=== PATIENT | male | born 1970 | race Caucasian/White ===

== ENCOUNTER 2017-03-29 18:09 | Emergency (ER) | payer OTHER ==
[~2017-03-29] VITALS: Ht 167.6 cm; Wt 152.0 kg
[~2017-03-29 18:09] MED LIST: ACET-1172 PO; ALBMDI INH; ARIP15TA2 PO; ASPI81TA2 PO; ATRMDI INH; CARV25TA55 PO; CITA20SO PO; FURO40TA5 PO; GABA-531 PO; INSU100V11 SQ; LISI-600 PO; MAGN250T31 PO; METF-716 PO; OMEG500C3 PO; OMEP20CA10 PO; POLY17PO2 PO; POTA20PA3 PO; SIMV20TA2 PO; SPIR50TA26 PO; SSNOVOLOG SUBCUT; WITC1MED4 TP
[2017-03-29 18:19] VITALS: BP_SYST 160
[2017-03-29 19:37] LABS: BASOPHILS % (AUTO) 0.3 % (0.0-2.0); EOSINOPHILS # (AUTO) 0.3 K/uL (0.0-0.4); EOSINOPHILS % (AUTO) 2.8 % (0.0-4.0); HEMATOCRIT 36.6 % (36-54); HEMOGLOBIN 12.4 g/dL (14.0-18.0); MEAN CORPUSCULAR HEMOGLOBIN 27 pg (27-31); MEAN CORPUSCULAR HGB CONC 34 % (32-36); MEAN CORPUSCULAR VOLUME 79 fL (79.0-98.0); MONOCYTES # (AUTO) 0.3 K/uL (0.0-1.0); MONOCYTES % (AUTO) 3.5 % (1.7-9.3); NEUTROPHILS % (AUTO) 72.4 % (40.0-70.0); PLATELET COUNT (AUTO) 184 K/uL (130-430); RED BLOOD CELL COUNT(AUTO) 4.66 MIL/uL (4.2-6.2); RED CELL DISTRIBUTION WIDTH 13.5 % (9.0-15.0); WHITE BLOOD COUNT (AUTO) 9.6 K/uL (4.8-10.8)
[2017-03-29 19:43] LABS: ANION GAP 7 (5-15); CALCIUM 9.2 mg/dL (8.4-11.0); CHLORIDE 96 mmol/L (98-107); CREATININE 1.36 mg/dL (0.55-1.30); GLUCOSE 210 mg/dL (70-99); POTASSIUM 4.1 mmol/L (3.5-5.1); SODIUM SERUM 130 mmol/L (136-145); UREA NITROGEN, BLOOD 25 mg/dL (8-21)
[2017-03-29 19:46] LABS: GFR AFRICAN AMERICAN 72 mL/min (>90); PROTHROMBIN TIME 10.4 SECS (9.5-12.5)
[2017-03-29 20:07] LABS: ALANINE AMINOTRANSFERASE 32 U/L (12-78); ALBUMIN 3.5 g/dL (3.4-4.8); ASPARTATE AMINOTRANSFERASE 20 U/L (10-37); FREE T4 (FREE THYROXINE) 0.7 ng/dL (0.6-1.6); TOTAL BILIRUBIN 0.3 mg/dL (0.0-1.0); TOTAL PROTEIN, SERUM 7.9 g/dL (6.4-8.3)
[2017-03-29 20:08] LABS: ALCOHOL, BLOOD < 3 mg/dL (<10)
[2017-03-29] MEDS ORDERED: ACETAMINOPHEN 500 MG TABLET PO ONE (20:30)
[2017-03-29] MEDS ORDERED: HYDROmorphone 1 MG INJ. 1 MG/ML AMPUL IVP ONE (21:15)
[2017-03-29] MEDS ORDERED: MORPHINE 4 MG/ML INJ. SYRINGE IVP ONE (21:15)
[2017-03-29 21:27] LABS: BILIRUBIN,URINE NEGATIVE (NEGATIVE); BLOOD, URINE 1+ (NEGATIVE); CLARITY/URINE CLEAR (CLEAR); COLOR,URINE YELLOW (YELLOW); GLUCOSE,URINE NEGATIVE (NEGATIVE); KETONES,URINE NEGATIVE (NEGATIVE); LEUKOCYTE ESTERASE ,URINE NEGATIVE (NEGATIVE); NITRITE, URINE NEGATIVE (NEGATIVE); PH,URINE 5.5 (5.0-8.0); PROTEIN URINE 1+ (NEGATIVE); UROBILINOGEN,URINE 0.2 (0.2-1.0)
[2017-03-29 21:45] LABS: BARBITURATE, URINE NEGATIVE (NEG <=200); OPIATE, URINE POSITIVE (NEG <=100); URINE AMPHETAMINE NEGATIVE (NEG <=500)
[2017-03-29 21:46] LABS: BENZODIAZEPINE, URINE NEGATIVE (NEG <=150); CANNABINOID, URINE NEGATIVE (NEG <=50); COCAINE, URINE NEGATIVE (NEG <=150); METHAMPHETAMINES SCREEN,URINE NEGATIVE (NEG <=500); PHENCYCLIDINE SCREEN,URINE NEGATIVE (NEG <=25); UR TRICYCLIC ANTIDEPRESSANTS NEGATIVE (NEG <=300); URINE METHADONE NEGATIVE (NEG <=200); URINE OXYCODONE SCREEN NEGATIVE (NEG <=100); URINE PROPOXYPHENE SCREEN NEGATIVE (NEG <=300)
[2017-03-29 22:05] VITALS: BP_SYST 134
[2017-03-29 22:48] LABS: BACTERIA,URINE FEW /HPF (None Seen); RBC,URINE 0-3 /HPF (0-3); WBC,URINE 0-3 /HPF (0-3)
== END 2017-03-29 22:05 | disposition home or self-care (01) ==
LOC: SED 18:09
DX: R51 Headache (principal); R07.89 Other chest pain; E66.2 Morbid (severe) obesity with alveolar hypoventilation; I50.9 Heart failure, unspecified; I11.0 Hypertensive heart disease with heart failure; J45.909 Unspecified asthma, uncomplicated; E11.9 Type 2 diabetes mellitus without complications; Z95.0 Presence of cardiac pacemaker; Z88.6 Allergy status to analgesic agent; Z79.899 Other long term (current) drug therapy
CPT/HCPCS: 36415; 70450; 71010; 80053; 80307; 81000; 82140; 83605; 83880; 84439; 84484; 85025; 85610; 87040; 93005; 96374; 99285; G0482; J2270; J1170

== ENCOUNTER 2019-10-23 19:56 | Emergency (ER) | payer BC, OTHER ==
[~2019-10-23] VITALS: Ht 167.6 cm; Wt 154.2 kg
[~2019-10-23 19:56] MED LIST changes: +ASPI-1155 PO; -ASPI81TA2 PO; -CITA20SO PO; +CITA20SO2 PO; +MAGN250T10 PO; -MAGN250T31 PO; -METF-716 PO; +METF-833 PO; -OMEP20CA10 PO; +OMEP20CA11 PO; +POLY17PO PO; -POLY17PO2 PO; -SPIR50TA26 PO; +SPIR50TA5 PO
[2019-10-23 20:20] VITALS: BP_SYST 140
--- NOTE | 2019-10-23 20:20 | NUR ---
Pt BIB BLS from home, placed to ER hallway, EMS at side, awaiting bed placement.
--- NOTE | 2019-10-23 20:48 | NUR ---
Dr. Barragan assessing pt.
--- NOTE | 2019-10-23 21:00 | NUR ---
Pt placed to ER bed 06. Dr. Barragan at bedside.
--- NOTE | 2019-10-23 21:05 | NUR ---
HERE WITH A CHIEF COMPLAINT OF LEFT HIP,THIGH,ABDOMEN AND LOWER BACK PAIN. ER-MD AT BEDSIDE TO EVALUATE PT.
[2019-10-23] MEDS ORDERED: NACL 0.9% 1,000 ML IV ONE (21:12)
[2019-10-23] MEDS ORDERED: MORPHINE 4 MG/ML INJ. SYRINGE IVP ONE (21:15)
[2019-10-23] MEDS ORDERED: DIPHENHYDRAMINE INJ 50 MG/ML VIAL IVP ONE (21:15)
--- NOTE | 2019-10-23 21:40 | NUR ---
Pt to CT via stretcher in stable condition.
--- NOTE | 2019-10-23 21:51 | NUR ---
Pt returns from CT.
--- NOTE | 2019-10-23 22:05 | NUR ---
GAUGE 20 IV LINE ESTABLISHED TO THE LEFT AC. BLOOD DRAWN AND SENT TO THE LAB. NS 1 LITER @ 100 ML/HR,MORPHINE 4 MG IVP AND BENADRYL 25 MG IVP GIVEN ORDERED.
[2019-10-23 22:27] LABS: BASOPHILS % (AUTO) 0.2 % (0.0-2.0); EOSINOPHILS # (AUTO) 0.3 K/uL (0.0-0.4); EOSINOPHILS % (AUTO) 2.2 % (0.0-4.0); HEMATOCRIT 32.7 % (36-54); LYMPHOCYTES # (AUTO) 1.6 K/uL (1.0-5.5); LYMPHOCYTES % (AUTO) 14.1 % (20.5-51.5); MEAN CORPUSCULAR HEMOGLOBIN 27 pg (27-31); MEAN CORPUSCULAR HGB CONC 34 % (32-36); MEAN CORPUSCULAR VOLUME 80 fL (79.0-98.0); MONOCYTES # (AUTO) 0.7 K/uL (0.0-1.0); MONOCYTES % (AUTO) 6.2 % (1.7-9.3); NEUTROPHILS # (AUTO) 8.7 K/uL (1.8-7.7); NEUTROPHILS % (AUTO) 77.3 % (40.0-70.0); PLATELET COUNT (AUTO) 185 K/uL (130-430); RED CELL DISTRIBUTION WIDTH 15.5 % (9.0-15.0); WHITE BLOOD COUNT (AUTO) 11.2 K/uL (4.8-10.8)
[2019-10-23 22:35] LABS: CALCIUM 9.3 mg/dL (8.4-11.0); CREATININE 1.38 mg/dL (0.55-1.30); POTASSIUM 4.2 mmol/L (3.5-5.1)
--- NOTE | 2019-10-23 22:35 | NUR ---
PT.RESTING QUIETLY. VERBALIZED SIGNIFICANT IMPROVEMENT OF PAIN (4/10).
[2019-10-23 22:39] LABS: PROTHROMBIN TIME 10.5 SECS (9.5-12.5)
[2019-10-23 22:41] LABS: ALBUMIN 3.7 g/dL (3.4-4.8); TOTAL BILIRUBIN 0.6 mg/dL (0.0-1.0)
--- NOTE | 2019-10-23 23:14 | NUR ---
ER-MD BACK AT BEDSIDE TO RE-EVALUATE AND DISCUSS PLAN OF CARE WITH PT.
[2019-10-23] MEDS ORDERED: KETOROLAC TROMETHAMINE 30 MG VIAL IVP ONE (23:30)
--- NOTE | 2019-10-23 23:38 | NUR ---
PAIN BETTER (4/10). TORADOL 30 MG IVP GIVEN ORDERED. VS REMAIN STABLE.
--- NOTE | 2019-10-24 00:25 | NUR ---
DISCHARGED STABLE AND IMPROVED. PRESCRIPTION,VERBAL AND WRITTEN AFTERCARE INSTRUCTIONS GIVEN. VERBALIZED UNDERSTANDING.
[2019-10-24 00:44] VITALS: BP_SYST 126
== END 2019-10-24 00:44 | disposition home or self-care (01) ==
LOC: SED 19:56
DX: M25.552 Pain in left hip (principal); M54.5 Low back pain; J45.909 Unspecified asthma, uncomplicated; I11.0 Hypertensive heart disease with heart failure; I50.9 Heart failure, unspecified; E11.9 Type 2 diabetes mellitus without complications; Z95.0 Presence of cardiac pacemaker; Z88.5 Allergy status to narcotic agent; Z79.899 Other long term (current) drug therapy
CPT/HCPCS: 36415; 72192; 80053; 85025; 85610; 85730; 96374; 96375; 99284; J1200; J1885; J2270; J7030

== ENCOUNTER 2019-10-26 09:37 | Inpatient (IN) | payer BC, OTHER ==
[~2019-10-26] VITALS: Ht 167.6 cm; Wt 155.6 kg
[2019-10-26 09:37] VITALS: BP_SYST 160
[2019-10-26] MEDS ORDERED: ONDANSETRON HCL 4 MG/2 ML VIAL IVP ONE (10:00)
[2019-10-26] MEDS ORDERED: MORPHINE 4 MG/ML INJ. SYRINGE IVP ONE ×2 (10:00→13:30)
[2019-10-26 10:54] LABS: BASOPHILS # (AUTO) 0.1 K/uL (0.0-0.2); BASOPHILS % (AUTO) 0.5 % (0.0-2.0); HEMATOCRIT 33.3 % (36-54); LYMPHOCYTES # (AUTO) 0.8 K/uL (1.0-5.5); LYMPHOCYTES % (AUTO) 6.7 % (20.5-51.5); MEAN CORPUSCULAR HEMOGLOBIN 26 pg (27-31); MEAN CORPUSCULAR HGB CONC 33 % (32-36); MEAN CORPUSCULAR VOLUME 81 fL (79.0-98.0); MONOCYTES # (AUTO) 1.1 K/uL (0.0-1.0); MONOCYTES % (AUTO) 9.2 % (1.7-9.3); NEUTROPHILS # (AUTO) 9.9 K/uL (1.8-7.7); NEUTROPHILS % (AUTO) 83.6 % (40.0-70.0); PLATELET COUNT (AUTO) 159 K/uL (130-430); RED BLOOD CELL COUNT(AUTO) 4.14 MIL/uL (4.2-6.2); RED CELL DISTRIBUTION WIDTH 15.5 % (9.0-15.0); WHITE BLOOD COUNT (AUTO) 11.9 K/uL (4.8-10.8)
[2019-10-26 10:59] LABS: CALCIUM 9.2 mg/dL (8.4-11.0); CREATININE 1.62 mg/dL (0.55-1.30); POTASSIUM 3.6 mmol/L (3.5-5.1)
[2019-10-26 11:03] LABS: ALBUMIN 3.4 g/dL (3.4-4.8); TOTAL BILIRUBIN 1.1 mg/dL (0.0-1.0)
[2019-10-26] MEDS ORDERED: KETOROLAC TROMETHAMINE 30 MG VIAL IVP ONE (11:15)
[2019-10-26] MEDS ORDERED: cefTRIAXone 1 GM IVPB PREMIX 50 ML IV ONE ×2 (14:00→22:35)
[2019-10-26] MEDS ORDERED: KETOROLAC TROMETHAMINE 15 MG VIAL IVP PRN (14:00)
[2019-10-26] MEDS ORDERED: D5/0.45 NS 1,000 ML IV SCH (14:00)
[2019-10-26 15:25] VITALS: BP_SYST 115
[2019-10-26] MEDS ORDERED: INSULIN REGULAR, HUMAN 100 UNITS/ML, 10 ML VIAL (humuLIN R) SUBCUT PRN (18:45)
[2019-10-26 19:00] VITALS: BP_SYST 134
[2019-10-26] MEDS ORDERED: PHENYLEPH/MINERAL OIL/PETROLAT 45 GM OINT.APPL TP SCH (19:30)
[2019-10-26] MEDS ORDERED: ACETAMINOPHEN/CODEINE 300 MG-30 MG TABLET PO SCH (19:30)
[2019-10-26 20:00] VITALS: BP_SYST 134
[2019-10-26] MEDS: SPIRONOLACTONE 50 MG TABLET (ALDACTONE) PO SCH (21:06)
[2019-10-26] MEDS: CARVEDILOL 25 MG TABLET (COREG) PO SCH (21:07)
[2019-10-26] MEDS: FUROSEMIDE 40 MG TABLET PO SCH (21:07)
[2019-10-26] MEDS: GABAPENTIN 300 MG CAPSULE PO SCH (21:07)
[2019-10-26] MEDS: LISINOPRIL 20 MG TABLET PO SCH (21:08)
[2019-10-26] MEDS: SIMVASTATIN 20 MG TABLET PO SCH (21:08)
[2019-10-26] MEDS: D5/0.45 NS 1,000 ML IV SCH (21:09)
[2019-10-26] MEDS: INSULIN REGULAR, HUMAN 100 UNITS/ML, 10 ML VIAL (humuLIN R) SUBCUT PRN (21:13)
[2019-10-26] MEDS: KETOROLAC TROMETHAMINE 15 MG VIAL IVP PRN (23:00)
[2019-10-27] VITALS: BP_SYST 125
[2019-10-27] MEDS: MORPHINE 2 MG/ML INJ. SYRINGE IVP PRN ×4 (00:11→19:06)
[2019-10-27] MEDS: INSULIN REGULAR, HUMAN 100 UNITS/ML, 10 ML VIAL (humuLIN R) SUBCUT PRN ×2 (06:27→20:41)
[2019-10-27 07:02] LABS: BASOPHILS % (AUTO) 0.2 % (0.0-2.0); HEMATOCRIT 28.6 % (36-54); HEMOGLOBIN 9.7 g/dL (14.0-18.0); LYMPHOCYTES # (AUTO) 0.4 K/uL (1.0-5.5); LYMPHOCYTES % (AUTO) 4.7 % (20.5-51.5); MEAN CORPUSCULAR HEMOGLOBIN 27 pg (27-31); MEAN CORPUSCULAR HGB CONC 34 % (32-36); MEAN CORPUSCULAR VOLUME 80 fL (79.0-98.0); MONOCYTES # (AUTO) 0.8 K/uL (0.0-1.0); MONOCYTES % (AUTO) 8.7 % (1.7-9.3); NEUTROPHILS % (AUTO) 86.4 % (40.0-70.0); PLATELET COUNT (AUTO) 150 K/uL (130-430); RED BLOOD CELL COUNT(AUTO) 3.58 MIL/uL (4.2-6.2); RED CELL DISTRIBUTION WIDTH 15.3 % (9.0-15.0); WHITE BLOOD COUNT (AUTO) 9.2 K/uL (4.8-10.8)
[2019-10-27 07:22] LABS: CALCIUM 8.4 mg/dL (8.4-11.0); CREATININE 1.96 mg/dL (0.55-1.30); POTASSIUM 4.1 mmol/L (3.5-5.1)
[2019-10-27 08:00] VITALS: BP_SYST 141
[2019-10-27 08:20] VITALS: BP_SYST 125
[2019-10-27] MEDS: MAGNESIUM OXIDE 400 MG TABLET PO SCH (08:47)
[2019-10-27] MEDS: ARIPiprazole 5 MG TAB PO SCH (08:49)
[2019-10-27] MEDS: GABAPENTIN 300 MG CAPSULE PO SCH ×3 (08:50→20:34)
[2019-10-27] MEDS: ASPIRIN 81 MG TAB.CHEW PO SCH (08:50)
[2019-10-27] MEDS: CARVEDILOL 25 MG TABLET (COREG) PO SCH ×2 (08:51→20:50)
[2019-10-27] MEDS: FUROSEMIDE 40 MG TABLET PO SCH (08:52)
[2019-10-27] MEDS: CITALOPRAM HYDROBROMIDE 20 MG TABLET PO SCH (08:53)
[2019-10-27] MEDS: LISINOPRIL 20 MG TABLET PO SCH (08:54)
[2019-10-27] MEDS: ENOXAPARIN SODIUM 40 MG/0.4 ML SYRINGE SUBCUT SCH (08:56)
[2019-10-27 09:03] LABS: BILIRUBIN,URINE NEGATIVE (NEGATIVE); CLARITY/URINE CLEAR (CLEAR); COLOR,URINE YELLOW (YELLOW); GLUCOSE,URINE NEGATIVE (NEGATIVE); KETONES,URINE NEGATIVE (NEGATIVE); LEUKOCYTE ESTERASE ,URINE NEGATIVE (NEGATIVE); NITRITE, URINE NEGATIVE (NEGATIVE); PROTEIN URINE 2+ (NEGATIVE)
[2019-10-27 09:09] LABS: BLOOD, URINE TRACE (NEGATIVE)
[2019-10-27] MEDS: OMEGA-3/DHA/EPA/FISH OIL 1 GM CAPSULE PO SCH (09:13)
[2019-10-27] MEDS: SPIRONOLACTONE 50 MG TABLET (ALDACTONE) PO SCH (09:19)
[2019-10-27 09:27] LABS: BACTERIA,URINE RARE /HPF (None Seen); RBC,URINE 0-3 /HPF (0-3); WBC,URINE 0-3 /HPF (0-3)
[2019-10-27 09:28] LABS: MUCUS,URINE 1+ /LPF (None Seen)
[2019-10-27 12:00] VITALS: BP_SYST 128
[2019-10-27] MEDS: D5/0.45 NS 1,000 ML IV SCH (15:38)
[2019-10-27] MEDS: ACETAMINOPHEN/CODEINE 300 MG-30 MG TABLET PO PRN ×2 (17:30→19:08)
[2019-10-27 18:45] VITALS: BP_SYST 128
[2019-10-27 20:00] VITALS: BP_SYST 124
[2019-10-27] MEDS: SIMVASTATIN 20 MG TABLET PO SCH (20:34)
[2019-10-27] MEDS ORDERED: VANCOMYCIN HCL 1 GM/NS PREMIX 250 ML IV SCH (21:00)
[2019-10-27] MEDS ORDERED: VANCOMYCIN HCL 500 MG/VIAL IV ONE ×2 (21:33→23:26)
[2019-10-27] MEDS: KETOROLAC TROMETHAMINE 15 MG VIAL IVP PRN (22:55)
[2019-10-28 00:25] VITALS: BP_SYST 127
[2019-10-28] MEDS: MORPHINE 2 MG/ML INJ. SYRINGE IVP PRN ×3 (04:42→20:46)
[2019-10-28] MEDS: INSULIN REGULAR, HUMAN 100 UNITS/ML, 10 ML VIAL (humuLIN R) SUBCUT PRN ×4 (06:14→21:20)
[2019-10-28 07:06] LABS: BASOPHILS % (AUTO) 0.3 % (0.0-2.0); EOSINOPHILS % (AUTO) 0.3 % (0.0-4.0); HEMATOCRIT 27.3 % (36-54); HEMOGLOBIN 9.3 g/dL (14.0-18.0); LYMPHOCYTES # (AUTO) 0.5 K/uL (1.0-5.5); LYMPHOCYTES % (AUTO) 6.1 % (20.5-51.5); MEAN CORPUSCULAR HEMOGLOBIN 27 pg (27-31); MEAN CORPUSCULAR HGB CONC 34 % (32-36); MEAN CORPUSCULAR VOLUME 80 fL (79.0-98.0); MONOCYTES # (AUTO) 0.9 K/uL (0.0-1.0); MONOCYTES % (AUTO) 9.9 % (1.7-9.3); NEUTROPHILS # (AUTO) 7.3 K/uL (1.8-7.7); NEUTROPHILS % (AUTO) 83.4 % (40.0-70.0); PLATELET COUNT (AUTO) 145 K/uL (130-430); RED BLOOD CELL COUNT(AUTO) 3.42 MIL/uL (4.2-6.2); RED CELL DISTRIBUTION WIDTH 15.4 % (9.0-15.0); WHITE BLOOD COUNT (AUTO) 8.7 K/uL (4.8-10.8)
[2019-10-28 07:39] LABS: ALBUMIN 2.7 g/dL (3.4-4.8); CREATININE 2.32 mg/dL (0.55-1.30); POTASSIUM 4.1 mmol/L (3.5-5.1); TOTAL BILIRUBIN 1.5 mg/dL (0.0-1.0)
[2019-10-28 08:00] VITALS: BP_SYST 152
[2019-10-28] MEDS: OMEGA-3/DHA/EPA/FISH OIL 1 GM CAPSULE PO SCH (08:55)
[2019-10-28] MEDS: ASPIRIN 81 MG TAB.CHEW PO SCH (08:55)
[2019-10-28] MEDS: GABAPENTIN 300 MG CAPSULE PO SCH ×3 (08:55→21:12)
[2019-10-28] MEDS: CITALOPRAM HYDROBROMIDE 20 MG TABLET PO SCH (08:55)
[2019-10-28] MEDS: MAGNESIUM OXIDE 400 MG TABLET PO SCH (08:55)
[2019-10-28] MEDS: ARIPiprazole 5 MG TAB PO SCH (08:55)
[2019-10-28] MEDS: CARVEDILOL 25 MG TABLET (COREG) PO SCH ×2 (08:56→21:10)
[2019-10-28] MEDS: ENOXAPARIN SODIUM 40 MG/0.4 ML SYRINGE SUBCUT SCH (08:58)
[2019-10-28] MEDS: D5/0.45 NS 1,000 ML IV SCH ×2 (11:14→22:06)
[2019-10-28] MEDS: ACETAMINOPHEN/CODEINE 300 MG-30 MG TABLET PO PRN (11:38)
[2019-10-28 12:22] VITALS: BP_SYST 143
[2019-10-28 16:23] VITALS: BP_SYST 99
[2019-10-28] MEDS: CEFEPIME 1 GM in D5W 50 ML IV SCH (16:57)
[2019-10-28] MEDS ORDERED: VANCOMYCIN HCL 2,000 MG in NS 500 ML IV SCH (18:00)
[2019-10-28 19:00] VITALS: BP_SYST 110
[2019-10-28 20:00] VITALS: BP_SYST 110
[2019-10-28] MEDS: SPIRONOLACTONE 50 MG TABLET (ALDACTONE) PO SCH (21:09)
[2019-10-28] MEDS: FUROSEMIDE 40 MG TABLET PO SCH (21:10)
[2019-10-28] MEDS: SIMVASTATIN 20 MG TABLET PO SCH (21:10)
[2019-10-29 00:18] VITALS: BP_SYST 126
[2019-10-29] MEDS: MORPHINE 2 MG/ML INJ. SYRINGE IVP PRN ×4 (00:52→20:58)
[2019-10-29] MEDS: D5/0.45 NS 1,000 ML IV SCH ×2 (04:55→16:15)
[2019-10-29] MEDS: INSULIN REGULAR, HUMAN 100 UNITS/ML, 10 ML VIAL (humuLIN R) SUBCUT PRN ×4 (05:49→20:51)
[2019-10-29 06:58] LABS: BASOPHILS % (AUTO) 0.4 % (0.0-2.0); EOSINOPHILS # (AUTO) 0.1 K/uL (0.0-0.4); EOSINOPHILS % (AUTO) 1.1 % (0.0-4.0); HEMATOCRIT 24.8 % (36-54); HEMOGLOBIN 8.4 g/dL (14.0-18.0); LYMPHOCYTES # (AUTO) 0.8 K/uL (1.0-5.5); LYMPHOCYTES % (AUTO) 11.7 % (20.5-51.5); MEAN CORPUSCULAR HEMOGLOBIN 27 pg (27-31); MEAN CORPUSCULAR HGB CONC 34 % (32-36); MEAN CORPUSCULAR VOLUME 79 fL (79.0-98.0); MONOCYTES # (AUTO) 0.8 K/uL (0.0-1.0); MONOCYTES % (AUTO) 13.2 % (1.7-9.3); NEUTROPHILS # (AUTO) 4.7 K/uL (1.8-7.7); NEUTROPHILS % (AUTO) 73.6 % (40.0-70.0); PLATELET COUNT (AUTO) 119 K/uL (130-430); RED BLOOD CELL COUNT(AUTO) 3.12 MIL/uL (4.2-6.2); RED CELL DISTRIBUTION WIDTH 15.5 % (9.0-15.0); WHITE BLOOD COUNT (AUTO) 6.4 K/uL (4.8-10.8)
[2019-10-29 07:10] LABS: ALBUMIN 2.5 g/dL (3.4-4.8); CALCIUM 7.9 mg/dL (8.4-11.0); CREATININE 1.82 mg/dL (0.55-1.30); POTASSIUM 4.3 mmol/L (3.5-5.1); TOTAL BILIRUBIN 1.5 mg/dL (0.0-1.0)
[2019-10-29] MEDS: SPIRONOLACTONE 50 MG TABLET (ALDACTONE) PO SCH ×2 (08:35→20:41)
[2019-10-29] MEDS: GABAPENTIN 300 MG CAPSULE PO SCH ×3 (08:35→20:42)
[2019-10-29] MEDS: ENOXAPARIN SODIUM 40 MG/0.4 ML SYRINGE SUBCUT SCH (08:36)
[2019-10-29] MEDS: FUROSEMIDE 40 MG TABLET PO SCH ×2 (08:36→20:42)
[2019-10-29] MEDS: CARVEDILOL 25 MG TABLET (COREG) PO SCH ×2 (08:36→20:41)
[2019-10-29] MEDS: CITALOPRAM HYDROBROMIDE 20 MG TABLET PO SCH (08:36)
[2019-10-29] MEDS: ARIPiprazole 5 MG TAB PO SCH (08:37)
[2019-10-29] MEDS: MAGNESIUM OXIDE 400 MG TABLET PO SCH (08:37)
[2019-10-29] MEDS: OMEGA-3/DHA/EPA/FISH OIL 1 GM CAPSULE PO SCH (08:37)
[2019-10-29] MEDS: ASPIRIN 81 MG TAB.CHEW PO SCH (08:37)
[2019-10-29] MEDS: KETOROLAC TROMETHAMINE 15 MG VIAL IVP PRN (08:45)
[2019-10-29 10:48] VITALS: BP_SYST 145
[2019-10-29 12:00] VITALS: BP_SYST 123
[2019-10-29] MEDS: VANCOMYCIN HCL 1,750 MG in NS 500 ML IV SCH (16:15)
[2019-10-29 16:34] VITALS: BP_SYST 140
[2019-10-29] MEDS ORDERED: BALSAM PERU/CASTOR OIL 60 GM OINT...G. TP ONE (18:00)
[2019-10-29] MEDS: CEFEPIME 1 GM in D5W 50 ML IV SCH (18:39)
[2019-10-29 19:00] VITALS: BP_SYST 162
[2019-10-29 20:00] VITALS: BP_SYST 162
[2019-10-29] MEDS: SIMVASTATIN 20 MG TABLET PO SCH (20:42)
[2019-10-30 00:20] VITALS: BP_SYST 133
[2019-10-30] MEDS: MORPHINE 2 MG/ML INJ. SYRINGE IVP PRN (01:25)
[2019-10-30] MEDS: VANCOMYCIN HCL 1,750 MG in NS 500 ML IV SCH (02:35)
[2019-10-30] MEDS: D5/0.45 NS 1,000 ML IV SCH (04:06)
[2019-10-30] MEDS: KETOROLAC TROMETHAMINE 15 MG VIAL IVP PRN ×3 (04:42→16:05)
[2019-10-30] MEDS: INSULIN REGULAR, HUMAN 100 UNITS/ML, 10 ML VIAL (humuLIN R) SUBCUT PRN ×4 (06:03→21:41)
[2019-10-30 07:57] LABS: CALCIUM 8.1 mg/dL (8.4-11.0); CREATININE 1.62 mg/dL (0.55-1.30); POTASSIUM 3.8 mmol/L (3.5-5.1)
[2019-10-30 08:00] VITALS: BP_SYST 139
[2019-10-30] MEDS: BALSAM PERU/CASTOR OIL 60 GM OINT...G. TP SCH ×2 (09:00→15:59)
[2019-10-30] MEDS: FUROSEMIDE 40 MG TABLET PO SCH ×2 (09:28→21:33)
[2019-10-30] MEDS: ARIPiprazole 5 MG TAB PO SCH (09:28)
[2019-10-30] MEDS: CITALOPRAM HYDROBROMIDE 20 MG TABLET PO SCH (09:28)
[2019-10-30] MEDS: MAGNESIUM OXIDE 400 MG TABLET PO SCH (09:29)
[2019-10-30] MEDS: SPIRONOLACTONE 50 MG TABLET (ALDACTONE) PO SCH ×2 (09:29→21:33)
[2019-10-30] MEDS: GABAPENTIN 300 MG CAPSULE PO SCH ×3 (09:29→21:32)
[2019-10-30] MEDS: ASPIRIN 81 MG TAB.CHEW PO SCH (09:30)
[2019-10-30] MEDS: CARVEDILOL 25 MG TABLET (COREG) PO SCH ×2 (09:30→21:33)
[2019-10-30] MEDS: OMEGA-3/DHA/EPA/FISH OIL 1 GM CAPSULE PO SCH (09:30)
[2019-10-30] MEDS: LISINOPRIL 20 MG TABLET PO SCH (09:31)
[2019-10-30] MEDS: ENOXAPARIN SODIUM 40 MG/0.4 ML SYRINGE SUBCUT SCH (09:41)
[2019-10-30] MEDS: ACETAMINOPHEN/CODEINE 300 MG-30 MG TABLET PO PRN (10:14)
[2019-10-30 13:12] VITALS: BP_SYST 139
[2019-10-30 16:00] VITALS: BP_SYST 138
[2019-10-30 20:00] VITALS: BP_SYST 139
[2019-10-30] MEDS: ceFAZolin SODIUM 1 GM in D5W 50 ML IV SCH ×2 (21:00→21:34)
[2019-10-30] MEDS: SIMVASTATIN 20 MG TABLET PO SCH (21:33)
[2019-10-31 00:30] VITALS: BP_SYST 150
[2019-10-31] MEDS: INSULIN REGULAR, HUMAN 100 UNITS/ML, 10 ML VIAL (humuLIN R) SUBCUT PRN ×4 (06:13→21:06)
[2019-10-31] MEDS: KETOROLAC TROMETHAMINE 15 MG VIAL IVP PRN (06:14)
[2019-10-31 08:33] VITALS: BP_SYST 159
[2019-10-31] MEDS: BALSAM PERU/CASTOR OIL 60 GM OINT...G. TP SCH ×2 (09:00)
[2019-10-31] MEDS: SPIRONOLACTONE 50 MG TABLET (ALDACTONE) PO SCH ×2 (10:12→20:56)
[2019-10-31] MEDS: OMEGA-3/DHA/EPA/FISH OIL 1 GM CAPSULE PO SCH (10:12)
[2019-10-31] MEDS: ceFAZolin SODIUM 1 GM in D5W 50 ML IV SCH ×2 (10:12→20:52)
[2019-10-31] MEDS: MAGNESIUM OXIDE 400 MG TABLET PO SCH (10:13)
[2019-10-31] MEDS: ARIPiprazole 5 MG TAB PO SCH (10:13)
[2019-10-31] MEDS: LISINOPRIL 20 MG TABLET PO SCH (10:14)
[2019-10-31] MEDS: CITALOPRAM HYDROBROMIDE 20 MG TABLET PO SCH (10:14)
[2019-10-31] MEDS: CARVEDILOL 25 MG TABLET (COREG) PO SCH ×2 (10:15→20:56)
[2019-10-31] MEDS: ASPIRIN 81 MG TAB.CHEW PO SCH (10:16)
[2019-10-31] MEDS: FUROSEMIDE 40 MG TABLET PO SCH ×2 (10:16→20:55)
[2019-10-31] MEDS: GABAPENTIN 300 MG CAPSULE PO SCH ×3 (10:17→20:55)
[2019-10-31] MEDS: ACETAMINOPHEN/CODEINE 300 MG-30 MG TABLET PO PRN (10:38)
[2019-10-31] MEDS: ENOXAPARIN SODIUM 40 MG/0.4 ML SYRINGE SUBCUT SCH (12:32)
[2019-10-31 12:50] VITALS: BP_SYST 131
[2019-10-31 16:47] VITALS: BP_SYST 125
[2019-10-31 20:00] VITALS: BP_SYST 150
[2019-10-31] MEDS: MORPHINE 2 MG/ML INJ. SYRINGE IVP PRN (20:45)
[2019-10-31] MEDS: SIMVASTATIN 20 MG TABLET PO SCH (20:55)
[2019-11-01 01:57] VITALS: BP_SYST 139
[2019-11-01] MEDS: MORPHINE 2 MG/ML INJ. SYRINGE IVP PRN (02:48)
[2019-11-01] MEDS: INSULIN REGULAR, HUMAN 100 UNITS/ML, 10 ML VIAL (humuLIN R) SUBCUT PRN ×4 (06:26→21:25)
[2019-11-01 06:28] LABS: ALBUMIN 2.5 g/dL (3.4-4.8); CALCIUM 8.8 mg/dL (8.4-11.0); CREATININE 1.32 mg/dL (0.55-1.30); POTASSIUM 3.9 mmol/L (3.5-5.1); TOTAL BILIRUBIN 0.7 mg/dL (0.0-1.0)
[2019-11-01 07:07] LABS: HEMATOCRIT 26.2 % (36-54); HEMOGLOBIN 8.8 g/dL (14.0-18.0); MEAN CORPUSCULAR HEMOGLOBIN 27 pg (27-31); MEAN CORPUSCULAR HGB CONC 34 % (32-36); MEAN CORPUSCULAR VOLUME 80 fL (79.0-98.0); PLATELET COUNT (AUTO) 237 K/uL (130-430); RED BLOOD CELL COUNT(AUTO) 3.28 MIL/uL (4.2-6.2); RED CELL DISTRIBUTION WIDTH 15.4 % (9.0-15.0); WHITE BLOOD COUNT (AUTO) 9.5 K/uL (4.8-10.8)
[2019-11-01] MEDS: MAGNESIUM OXIDE 400 MG TABLET PO SCH (08:46)
[2019-11-01] MEDS: OMEGA-3/DHA/EPA/FISH OIL 1 GM CAPSULE PO SCH (08:46)
[2019-11-01] MEDS: ENOXAPARIN SODIUM 40 MG/0.4 ML SYRINGE SUBCUT SCH (08:46)
[2019-11-01] MEDS: ARIPiprazole 5 MG TAB PO SCH (08:46)
[2019-11-01] MEDS: CARVEDILOL 25 MG TABLET (COREG) PO SCH ×2 (08:46→21:34)
[2019-11-01] MEDS: SPIRONOLACTONE 50 MG TABLET (ALDACTONE) PO SCH ×2 (08:47→21:34)
[2019-11-01] MEDS: LISINOPRIL 20 MG TABLET PO SCH (08:47)
[2019-11-01] MEDS: ASPIRIN 81 MG TAB.CHEW PO SCH (08:47)
[2019-11-01] MEDS: GABAPENTIN 300 MG CAPSULE PO SCH ×3 (08:47→21:35)
[2019-11-01] MEDS: CITALOPRAM HYDROBROMIDE 20 MG TABLET PO SCH (08:47)
[2019-11-01] MEDS: FUROSEMIDE 40 MG TABLET PO SCH ×2 (08:47→21:35)
[2019-11-01] MEDS: ceFAZolin SODIUM 1 GM in D5W 50 ML IV SCH ×2 (08:48→21:32)
[2019-11-01 08:55] LABS: BAND % (MANUAL) 3 % (0-6); BASOPHILS % (MANUAL) 0 % (0-2); EOSINOPHILS % (MANUAL) 3 % (0-7); LYMPHOCYTES % (MANUAL) 15 % (20-46); MONOCYTES % (MANUAL) 2 % (0-11)
[2019-11-01] MEDS: BALSAM PERU/CASTOR OIL 60 GM OINT...G. TP SCH ×2 (10:34→10:36)
[2019-11-01] MEDS: ACETAMINOPHEN/CODEINE 300 MG-30 MG TABLET PO PRN (10:35)
[2019-11-01 12:00] LABS: INR 1.1 (0.80-1.20); PROTHROMBIN TIME 11.5 SECS (9.5-12.5)
[2019-11-01 13:13] VITALS: BP_SYST 145
[2019-11-01 16:24] VITALS: BP_SYST 153
[2019-11-01 20:00] VITALS: BP_SYST 153
[2019-11-01] MEDS: SIMVASTATIN 20 MG TABLET PO SCH (21:35)
[2019-11-02 00:37] VITALS: BP_SYST 160
[2019-11-02 04:00] VITALS: BP_SYST 147
[2019-11-02] MEDS: INSULIN REGULAR, HUMAN 100 UNITS/ML, 10 ML VIAL (humuLIN R) SUBCUT PRN ×4 (06:54→20:04)
[2019-11-02 08:00] VITALS: BP_SYST 146
[2019-11-02] MEDS: CITALOPRAM HYDROBROMIDE 20 MG TABLET PO SCH (09:23)
[2019-11-02] MEDS: FUROSEMIDE 40 MG TABLET PO SCH ×2 (09:23→19:56)
[2019-11-02] MEDS: GABAPENTIN 300 MG CAPSULE PO SCH ×3 (09:24→19:56)
[2019-11-02] MEDS: ARIPiprazole 5 MG TAB PO SCH (09:24)
[2019-11-02] MEDS: SPIRONOLACTONE 50 MG TABLET (ALDACTONE) PO SCH ×2 (09:24→19:55)
[2019-11-02] MEDS: OMEGA-3/DHA/EPA/FISH OIL 1 GM CAPSULE PO SCH (09:25)
[2019-11-02] MEDS: ASPIRIN 81 MG TAB.CHEW PO SCH (09:25)
[2019-11-02] MEDS: LISINOPRIL 20 MG TABLET PO SCH (09:26)
[2019-11-02] MEDS: CARVEDILOL 25 MG TABLET (COREG) PO SCH ×2 (09:27→19:56)
[2019-11-02] MEDS: ceFAZolin SODIUM 1 GM in D5W 50 ML IV SCH (09:32)
[2019-11-02] MEDS: BALSAM PERU/CASTOR OIL 60 GM OINT...G. TP SCH ×2 (09:44→09:45)
[2019-11-02] MEDS: ENOXAPARIN SODIUM 40 MG/0.4 ML SYRINGE SUBCUT SCH (09:44)
[2019-11-02] MEDS: MAGNESIUM OXIDE 400 MG TABLET PO SCH (09:45)
[2019-11-02 12:38] VITALS: BP_SYST 166
[2019-11-02 16:55] VITALS: BP_SYST 165
[2019-11-02 17:54] VITALS: BP_SYST 155
[2019-11-02] MEDS: SIMVASTATIN 20 MG TABLET PO SCH (19:56)
== END 2019-11-02 20:22 | disposition home health service (06) | DRG 720 ==
LOC: SED 09:37 → SMU 13:59
PROVIDERS: ADMIT Family Medicine; ATTEND Family Medicine
DX: A41.01 Sepsis due to Methicillin susceptible Staphylococcus aureus (principal); N17.0 Acute kidney failure with tubular necrosis; J18.9 Pneumonia, unspecified organism; E11.22 Type 2 diabetes mellitus with diabetic chronic kidney disease; E66.01 Morbid (severe) obesity due to excess calories; I42.9 Cardiomyopathy, unspecified; I12.9 Hypertensive chronic kidney disease with stage 1 through stage 4 chronic kidney disease, or unspecified chronic kidney disease; K80.20 Calculus of gallbladder without cholecystitis without obstruction; E11.621 Type 2 diabetes mellitus with foot ulcer; F17.210 Nicotine dependence, cigarettes, uncomplicated; E87.1 Hypo-osmolality and hyponatremia; E11.40 Type 2 diabetes mellitus with diabetic neuropathy, unspecified; J45.909 Unspecified asthma, uncomplicated; L97.519 Non-pressure chronic ulcer of other part of right foot with unspecified severity; N18.9 Chronic kidney disease, unspecified; G47.33 Obstructive sleep apnea (adult) (pediatric); Z88.6 Allergy status to analgesic agent; Z88.8 Allergy status to other drugs, medicaments and biological substances; Z79.82 Long term (current) use of aspirin; Z79.899 Other long term (current) drug therapy; I25.2 Old myocardial infarction; Z95.0 Presence of cardiac pacemaker; Z90.49 Acquired absence of other specified parts of digestive tract; Z79.84 Long term (current) use of oral hypoglycemic drugs; Z79.4 Long term (current) use of insulin; Z68.43 Body mass index [BMI] 50.0-59.9, adult
CPT/HCPCS: 36415; 71045; 72100-TC; 73521; 76770; 78226; 80048; 80053; 80202-TC; 81000-TC; 82962; 83605; 83690-TC; 83880; 85007; 85025; 85027; 85610-TC; 85651-TC; 85730-TC; 87040-TC; 87186-TC; 93306; 94660; 94760; 96374; 96375; 96376; 97110-GP; 97116-GP; 99285; A9537; C1751; J0690; J0692; J0696; J1650; J1815; J1885; J2270; J2405; J3370; J7040; J7060

== ENCOUNTER 2019-11-09 03:54 | Emergency (ER) | payer BC, OTHER ==
[~2019-11-09] VITALS: Ht 167.6 cm; Wt 154.2 kg
[2019-11-09 03:55] VITALS: BP_SYST 168
[2019-11-09] MEDS ORDERED: KETOROLAC TROMETHAMINE 30 MG VIAL IVP ONE (04:30)
[2019-11-09] MEDS ORDERED: GABAPENTIN 100 MG CAPSULE PO ONE (04:30)
[2019-11-09] MEDS ORDERED: DIAZEPAM 5 MG TABLET (VALIUM) PO ONE (04:30)
[2019-11-09] MEDS ORDERED: ONDANSETRON HCL 4 MG/2 ML VIAL IVP ONE (04:30)
[2019-11-09] MEDS ORDERED: MORPHINE 4 MG/ML INJ. SYRINGE IVP ONE (04:30)
[2019-11-09 05:03] LABS: BASOPHILS # (AUTO) 0.1 K/uL (0.0-0.2); BASOPHILS % (AUTO) 0.5 % (0.0-2.0); EOSINOPHILS # (AUTO) 0.2 K/uL (0.0-0.4); EOSINOPHILS % (AUTO) 1.9 % (0.0-4.0); HEMATOCRIT 27.3 % (36-54); HEMOGLOBIN 9.2 g/dL (14.0-18.0); LYMPHOCYTES % (AUTO) 17.1 % (20.5-51.5); MEAN CORPUSCULAR HEMOGLOBIN 27 pg (27-31); MEAN CORPUSCULAR HGB CONC 34 % (32-36); MEAN CORPUSCULAR VOLUME 80 fL (79.0-98.0); MONOCYTES # (AUTO) 0.6 K/uL (0.0-1.0); MONOCYTES % (AUTO) 5.3 % (1.7-9.3); NEUTROPHILS % (AUTO) 75.2 % (40.0-70.0); PLATELET COUNT (AUTO) 252 K/uL (130-430); RED CELL DISTRIBUTION WIDTH 15.5 % (9.0-15.0); WHITE BLOOD COUNT (AUTO) 11.9 K/uL (4.8-10.8)
[2019-11-09 05:17] LABS: CALCIUM 9.2 mg/dL (8.4-11.0); CREATININE 1.23 mg/dL (0.55-1.30); POTASSIUM 4.5 mmol/L (3.5-5.1)
[2019-11-09 05:22] LABS: ALBUMIN 2.9 g/dL (3.4-4.8); C-REACTIVE PROTEIN QUANT 3.4 mg/dL (0-0.5); TOTAL BILIRUBIN 0.2 mg/dL (0.0-1.0)
[2019-11-09 05:48] LABS: ERYTHROCYTE SEDIMENTATION RATE 94 MM/HR (0-15)
[2019-11-09 07:30] VITALS: BP_SYST 150
== END 2019-11-09 07:30 | disposition home or self-care (01) ==
LOC: SED 03:54
DX: M54.5 Low back pain (principal); E87.1 Hypo-osmolality and hyponatremia; D72.829 Elevated white blood cell count, unspecified; E88.09 Other disorders of plasma-protein metabolism, not elsewhere classified; E11.22 Type 2 diabetes mellitus with diabetic chronic kidney disease; I13.0 Hypertensive heart and chronic kidney disease with heart failure and stage 1 through stage 4 chronic kidney disease, or unspecified chronic kidney disease; D63.1 Anemia in chronic kidney disease; N18.2 Chronic kidney disease, stage 2 (mild); I50.9 Heart failure, unspecified; J45.909 Unspecified asthma, uncomplicated; F17.200 Nicotine dependence, unspecified, uncomplicated; Z79.84 Long term (current) use of oral hypoglycemic drugs; Z71.6 Tobacco abuse counseling; Z79.82 Long term (current) use of aspirin; Z88.5 Allergy status to narcotic agent; Z79.899 Other long term (current) drug therapy; Z95.0 Presence of cardiac pacemaker
CPT/HCPCS: 36415; 80053; 82550; 85025; 85651; 86140; 96374; 96375; 99284; J1885; J2270; J2405

== ENCOUNTER 2020-03-09 11:25 | Emergency (ER) | payer OTHER, MEDICAID ==
[~2020-03-09] VITALS: Ht 165.1 cm; Wt 149.7 kg
[2020-03-09 11:30] VITALS: BP_SYST 119
[2020-03-09 12:10] VITALS: BP_SYST 150
[2020-03-09 13:19] LABS: BASOPHILS % (AUTO) 0.7 % (0.0-2.0); EOSINOPHILS # (AUTO) 0.1 K/uL (0.0-0.4); EOSINOPHILS % (AUTO) 1.2 % (0.0-4.0); HEMATOCRIT 35.3 % (36-54); HEMOGLOBIN 11.6 g/dL (14.0-18.0); LYMPHOCYTES # (AUTO) 0.9 K/uL (1.0-5.5); LYMPHOCYTES % (AUTO) 14.5 % (20.5-51.5); MEAN CORPUSCULAR HEMOGLOBIN 26 pg (27-31); MEAN CORPUSCULAR HGB CONC 33 % (32-36); MEAN CORPUSCULAR VOLUME 79 fL (79.0-98.0); MONOCYTES # (AUTO) 0.5 K/uL (0.0-1.0); NEUTROPHILS # (AUTO) 4.8 K/uL (1.8-7.7); NEUTROPHILS % (AUTO) 75.6 % (40.0-70.0); PLATELET COUNT (AUTO) 146 K/uL (130-430); RED CELL DISTRIBUTION WIDTH 16.6 % (9.0-15.0); WHITE BLOOD COUNT (AUTO) 6.4 K/uL (4.8-10.8)
[2020-03-09 13:25] LABS: CALCIUM 8.8 mg/dL (8.4-11.0); CREATININE 1.73 mg/dL (0.55-1.30); POTASSIUM 4.4 mmol/L (3.5-5.1)
[2020-03-09 13:30] LABS: ALBUMIN 3.3 g/dL (3.4-4.8); INR 1.1 (0.80-1.20); PROTHROMBIN TIME 10.7 SECS (9.5-12.5); TOTAL BILIRUBIN 0.5 mg/dL (0.0-1.0)
== END 2020-03-09 11:40 | disposition home or self-care (01) ==
LOC: SED 11:25
DX: J02.9 Acute pharyngitis, unspecified (principal); R19.7 Diarrhea, unspecified; J45.909 Unspecified asthma, uncomplicated; I11.0 Hypertensive heart disease with heart failure; I50.9 Heart failure, unspecified; E11.9 Type 2 diabetes mellitus without complications; Z88.5 Allergy status to narcotic agent; Z79.899 Other long term (current) drug therapy
CPT/HCPCS: 36415; 71045; 80053; 85025; 85610-TC; 85730-TC; 99284

== ENCOUNTER 2020-10-29 19:04 | Inpatient (IN) | payer OTHER, MEDICAID, SELFPAY ==
[~2020-10-29] VITALS: Ht 167.6 cm; Wt 179.6 kg
[~2020-10-29 19:04] MED LIST changes: -LISI-600 PO; +LISI20TA30 PO; -OMEP20CA11 PO; +OMEP20CA15 PO
[2020-10-29 19:05] VITALS: BP_SYST 118
[2020-10-29 19:31] LABS: BASOPHILS # (AUTO) 0.1 K/uL (0.0-0.2); BASOPHILS % (AUTO) 0.6 % (0.0-2.0); EOSINOPHILS % (AUTO) 0.2 % (0.0-4.0); HEMATOCRIT 32.9 % (36-54); LYMPHOCYTES # (AUTO) 0.6 K/uL (1.0-5.5); LYMPHOCYTES % (AUTO) 3.8 % (20.5-51.5); MEAN CORPUSCULAR HEMOGLOBIN 26 pg (27-31); MEAN CORPUSCULAR HGB CONC 33 % (32-36); MEAN CORPUSCULAR VOLUME 79 fL (79.0-98.0); MONOCYTES # (AUTO) 1.1 K/uL (0.0-1.0); MONOCYTES % (AUTO) 7.3 % (1.7-9.3); NEUTROPHILS # (AUTO) 13.4 K/uL (1.8-7.7); NEUTROPHILS % (AUTO) 88.1 % (40.0-70.0); PLATELET COUNT (AUTO) 162 K/uL (130-430); RED BLOOD CELL COUNT(AUTO) 4.17 MIL/uL (4.2-6.2); WHITE BLOOD COUNT (AUTO) 15.2 K/uL (4.8-10.8)
[2020-10-29 19:44] LABS: ANION GAP 6 (5-15); CHLORIDE 94 mmol/L (98-107); GLUCOSE 197 mg/dL (70-99); POTASSIUM 4.8 mmol/L (3.5-5.1); SODIUM SERUM 130 mmol/L (136-145); UREA NITROGEN, BLOOD 34 mg/dL (8-21)
[2020-10-29 19:51] LABS: ALANINE AMINOTRANSFERASE 23 U/L (12-78); ALBUMIN 3.5 g/dL (3.4-4.8); ASPARTATE AMINOTRANSFERASE 15 U/L (10-37); BILIRUBIN,DIRECT 0.1 mg/dL (0.0-0.3); LIPASE 86 U/L (73-393); TOTAL BILIRUBIN 0.7 mg/dL (0.0-1.0)
[2020-10-29 19:54] LABS: GFR AFRICAN AMERICAN 48 mL/min (>90)
[2020-10-29] MEDS ORDERED: FUROSEMIDE 20 MG/2 ML VIAL IVP ONE (20:15)
[2020-10-29] MEDS ORDERED: ASPIRIN 325 MG TABLET PO ONE (20:15)
[2020-10-29 20:56] LABS: BILIRUBIN,URINE NEGATIVE (NEGATIVE); BLOOD, URINE 2+ (NEGATIVE); CLARITY/URINE CLEAR (CLEAR); COLOR,URINE YELLOW (YELLOW); GLUCOSE,URINE NEGATIVE (NEGATIVE); KETONES,URINE NEGATIVE (NEGATIVE); LEUKOCYTE ESTERASE ,URINE NEGATIVE (NEGATIVE); NITRITE, URINE NEGATIVE (NEGATIVE); PROTEIN URINE 2+ (NEGATIVE); UROBILINOGEN,URINE 0.2 (0.2-1.0)
[2020-10-29] MEDS ORDERED: MUPIROCIN 2% TOPICAL OINTMENT 22 GM NS PRN (21:00)
[2020-10-29] MEDS ORDERED: DOCUSATE SODIUM 100 MG CAPSULE PO PRN (21:00)
[2020-10-29] MEDS ORDERED: ZOLPIDEM TARTRATE 5 MG TABLET PO PRN (21:00)
[2020-10-29] MEDS ORDERED: DEXTROSE 50% JECT 50 ML DISP.SYRIN IVP PRN (21:00)
[2020-10-29] MEDS ORDERED: ONDANSETRON HCL 4 MG/2 ML VIAL IVP PRN (21:00)
[2020-10-29] MEDS ORDERED: POTASSIUM CHLORIDE 20 MEQ TAB.PRT.SR PO PRN (21:00)
[2020-10-29] MEDS ORDERED: MAGNESIUM SULFATE 50 ML IV PRN (21:00)
[2020-10-29] MEDS ORDERED: ACETAMINOPHEN 325 MG TABLET PO PRN (21:00)
[2020-10-29] MEDS ORDERED: LORazepam 2 MG/ML VIAL IVP PRN (21:00)
[2020-10-29 21:08] LABS: BACTERIA,URINE FEW /HPF (None Seen); WBC,URINE 0-3 /HPF (0-3)
[2020-10-29 21:09] LABS: MUCUS,URINE None Seen /LPF (None Seen)
[2020-10-29] MEDS: POTASSIUM CHLORIDE 20 MEQ/PKT PACKET PO SCH (22:07)
[2020-10-29] MEDS: SPIRONOLACTONE 50 MG TABLET (ALDACTONE) PO SCH (22:08)
[2020-10-29] MEDS: lisinopriL 20 MG TABLET PO SCH (22:08)
[2020-10-29] MEDS: GABAPENTIN 300 MG CAPSULE PO SCH (22:08)
[2020-10-29] MEDS: SIMVASTATIN 20 MG TABLET PO SCH (22:10)
[2020-10-29] MEDS: CARVEDILOL 25 MG TABLET (COREG) PO SCH (22:10)
[2020-10-29] MEDS: HEPARIN SODIUM,PORCINE 5,000 UNITS/ML VIAL SUBCUT SCH (22:15)
[2020-10-29] MEDS: NACL 0.9% 1,000 ML IV SCH (22:16)
[2020-10-29 22:17] VITALS: BP_SYST 120
[2020-10-29] MEDS ORDERED: FLU VACC QS2020-21 (6 mos & up) 0.5 ML/SYRINGE I.M. PRN (22:30)
[2020-10-30 00:39] VITALS: BP_SYST 91
[2020-10-30 05:38] LABS: CALCIUM 8.5 mg/dL (8.4-11.0); CREATININE 1.96 mg/dL (0.55-1.30); POTASSIUM 4.2 mmol/L (3.5-5.1)
[2020-10-30 05:39] LABS: BASOPHILS # (AUTO) 0.1 K/uL (0.0-0.2); BASOPHILS % (AUTO) 0.4 % (0.0-2.0); EOSINOPHILS # (AUTO) 0.1 K/uL (0.0-0.4); HEMATOCRIT 29.2 % (36-54); HEMOGLOBIN 9.8 g/dL (14.0-18.0); LYMPHOCYTES # (AUTO) 1.9 K/uL (1.0-5.5); LYMPHOCYTES % (AUTO) 13.4 % (20.5-51.5); MEAN CORPUSCULAR HEMOGLOBIN 27 pg (27-31); MEAN CORPUSCULAR HGB CONC 33 % (32-36); MEAN CORPUSCULAR VOLUME 80 fL (79.0-98.0); MONOCYTES # (AUTO) 1.6 K/uL (0.0-1.0); NEUTROPHILS # (AUTO) 10.6 K/uL (1.8-7.7); NEUTROPHILS % (AUTO) 74.2 % (40.0-70.0); PLATELET COUNT (AUTO) 142 K/uL (130-430); RED BLOOD CELL COUNT(AUTO) 3.66 MIL/uL (4.2-6.2); WHITE BLOOD COUNT (AUTO) 14.3 K/uL (4.8-10.8)
[2020-10-30] MEDS: INSULIN LISPRO SLIDING SCALE 100 UNITS/ML VIAL (humaLOG) SUBCUT PRN ×4 (06:23→21:06)
[2020-10-30 06:57] VITALS: BP_SYST 91
[2020-10-30] MEDS ORDERED: ALBUTEROL SULFATE 0.083% 2.5 MG/3 ML VIAL.NEB INH PRN (07:00)
[2020-10-30 08:00] VITALS: BP_SYST 152
[2020-10-30] MEDS: PANTOPRAZOLE SODIUM 40 MG TAB PO SCH (08:30)
[2020-10-30] MEDS: POTASSIUM CHLORIDE 20 MEQ/PKT PACKET PO SCH ×2 (08:30→21:00)
[2020-10-30] MEDS: ASPIRIN 81 MG TAB.CHEW PO SCH (08:30)
[2020-10-30] MEDS: POLYETHYLENE GLYCOL 3350, 17 GM/ POWD.PACK PO SCH (08:31)
[2020-10-30] MEDS: CITALOPRAM HYDROBROMIDE 20 MG TABLET PO SCH (08:31)
[2020-10-30] MEDS: GABAPENTIN 300 MG CAPSULE PO SCH ×3 (08:31→21:04)
[2020-10-30] MEDS: FUROSEMIDE 40 MG TABLET PO SCH ×2 (08:41→21:00)
[2020-10-30] MEDS: lisinopriL 20 MG TABLET PO SCH ×2 (08:41→21:00)
[2020-10-30] MEDS: CARVEDILOL 25 MG TABLET (COREG) PO SCH ×2 (08:42→21:00)
[2020-10-30] MEDS: SPIRONOLACTONE 50 MG TABLET (ALDACTONE) PO SCH ×2 (08:42→21:00)
[2020-10-30] MEDS: HEPARIN SODIUM,PORCINE 5,000 UNITS/ML VIAL SUBCUT SCH ×2 (08:44→21:08)
[2020-10-30] MEDS ORDERED: ARIPiprazole 5 MG TAB PO SCH (09:00)
[2020-10-30] MEDS: cefTRIAXone 1 GM in D5W 50 ML IV SCH (10:24)
[2020-10-30 13:35] VITALS: BP_SYST 111
[2020-10-30 16:00] VITALS: BP_SYST 110
[2020-10-30] MEDS: NACL 0.9% 1,000 ML IV SCH (17:00)
[2020-10-30 20:00] VITALS: BP_SYST 120
[2020-10-30] MEDS ORDERED: INSULIN GLARGINE 100 UNITS/ML 10 ML VIAL SUBCUT SCH (21:00)
[2020-10-30] MEDS: SIMVASTATIN 20 MG TABLET PO SCH (21:04)
[2020-10-31] MEDS ORDERED: ACETAMINOPHEN 500 MG TABLET PO PRN (00:30)
[2020-10-31] MEDS: NACL 0.9% 1,000 ML IV SCH (00:34)
[2020-10-31 00:39] VITALS: BP_SYST 148
[2020-10-31 06:20] LABS: BASOPHILS # (AUTO) 0.1 K/uL (0.0-0.2); BASOPHILS % (AUTO) 0.5 % (0.0-2.0); EOSINOPHILS # (AUTO) 0.3 K/uL (0.0-0.4); EOSINOPHILS % (AUTO) 2.4 % (0.0-4.0); HEMATOCRIT 29.1 % (36-54); HEMOGLOBIN 9.7 g/dL (14.0-18.0); LYMPHOCYTES # (AUTO) 1.9 K/uL (1.0-5.5); LYMPHOCYTES % (AUTO) 18.1 % (20.5-51.5); MEAN CORPUSCULAR HEMOGLOBIN 27 pg (27-31); MEAN CORPUSCULAR HGB CONC 33 % (32-36); MEAN CORPUSCULAR VOLUME 80 fL (79.0-98.0); MONOCYTES # (AUTO) 0.9 K/uL (0.0-1.0); MONOCYTES % (AUTO) 8.5 % (1.7-9.3); NEUTROPHILS # (AUTO) 7.4 K/uL (1.8-7.7); NEUTROPHILS % (AUTO) 70.5 % (40.0-70.0); PLATELET COUNT (AUTO) 154 K/uL (130-430); RED BLOOD CELL COUNT(AUTO) 3.66 MIL/uL (4.2-6.2); RED CELL DISTRIBUTION WIDTH 15.2 % (9.0-15.0); WHITE BLOOD COUNT (AUTO) 10.5 K/uL (4.8-10.8)
[2020-10-31] MEDS: INSULIN LISPRO SLIDING SCALE 100 UNITS/ML VIAL (humaLOG) SUBCUT PRN ×2 (06:34→11:48)
[2020-10-31 06:39] LABS: ALBUMIN 2.9 g/dL (3.4-4.8); CALCIUM 8.6 mg/dL (8.4-11.0); CREATININE 1.55 mg/dL (0.55-1.30); POTASSIUM 4.4 mmol/L (3.5-5.1); THYROID STIMULATING HORMONE 2.84 uIu/mL (0.36-3.74); TOTAL BILIRUBIN 0.3 mg/dL (0.0-1.0)
[2020-10-31] MEDS ORDERED: MILK OF MAGNESIA 30 ML UDC PO ONE (08:30)
[2020-10-31] MEDS ORDERED: CIPR500T5 PO (08:56)
[2020-10-31] MEDS: ASPIRIN 81 MG TAB.CHEW PO SCH (11:20)
[2020-10-31] MEDS: GABAPENTIN 300 MG CAPSULE PO SCH (11:20)
[2020-10-31] MEDS: SPIRONOLACTONE 50 MG TABLET (ALDACTONE) PO SCH (11:21)
[2020-10-31] MEDS: CITALOPRAM HYDROBROMIDE 20 MG TABLET PO SCH (11:21)
[2020-10-31] MEDS: FUROSEMIDE 40 MG TABLET PO SCH (11:21)
[2020-10-31] MEDS: POTASSIUM CHLORIDE 20 MEQ/PKT PACKET PO SCH (11:21)
[2020-10-31] MEDS: CARVEDILOL 25 MG TABLET (COREG) PO SCH (11:22)
[2020-10-31] MEDS: lisinopriL 20 MG TABLET PO SCH (11:27)
[2020-10-31] MEDS: cefTRIAXone 1 GM in D5W 50 ML IV SCH (11:27)
[2020-10-31] MEDS: POLYETHYLENE GLYCOL 3350, 17 GM/ POWD.PACK PO SCH (11:27)
[2020-10-31] MEDS: HEPARIN SODIUM,PORCINE 5,000 UNITS/ML VIAL SUBCUT SCH (11:30)
[2020-10-31] MEDS: PANTOPRAZOLE SODIUM 40 MG TAB PO SCH (11:32)
[2020-10-31 12:00] VITALS: BP_SYST 135
[2020-10-31 13:09] VITALS: BP_SYST 132
== END 2020-10-31 14:20 | disposition home health service (06) | DRG 291 ==
LOC: SED 19:04 → STU 20:37
PROVIDERS: ADMIT General Practice; ATTEND General Practice
DX: I13.0 Hypertensive heart and chronic kidney disease with heart failure and stage 1 through stage 4 chronic kidney disease, or unspecified chronic kidney disease (principal); N17.0 Acute kidney failure with tubular necrosis; I50.43 Acute on chronic combined systolic (congestive) and diastolic (congestive) heart failure; N39.0 Urinary tract infection, site not specified; E87.1 Hypo-osmolality and hyponatremia; E44.1 Mild protein-calorie malnutrition; N18.4 Chronic kidney disease, stage 4 (severe); Z68.44 Body mass index [BMI] 60.0-69.9, adult; K21.9 Gastro-esophageal reflux disease without esophagitis; E11.22 Type 2 diabetes mellitus with diabetic chronic kidney disease; F32.9 Major depressive disorder, single episode, unspecified; D64.9 Anemia, unspecified; Z20.822 Contact with and (suspected) exposure to COVID-19; E11.65 Type 2 diabetes mellitus with hyperglycemia; E66.01 Morbid (severe) obesity due to excess calories; I42.0 Dilated cardiomyopathy; Z79.4 Long term (current) use of insulin; Z83.3 Family history of diabetes mellitus; Z87.891 Personal history of nicotine dependence; Z95.810 Presence of automatic (implantable) cardiac defibrillator; Z88.8 Allergy status to other drugs, medicaments and biological substances; Z79.82 Long term (current) use of aspirin; Z79.899 Other long term (current) drug therapy; I25.2 Old myocardial infarction; Z90.49 Acquired absence of other specified parts of digestive tract
CPT/HCPCS: 36415; 71045; 76376; 80048; 80053; 80076; 81000-TC; 82962; 83036; 83690-TC; 83735-TC; 83880; 84443-TC; 84484; 85025; 87040-TC; 87086; 93005; 93306; 96374; 97163; G0378; J0696; J1644; J1815; J1940; J7030; J7060

== ENCOUNTER 2020-12-31 20:28 | Emergency (ER) | payer OTHER, MEDICAID ==
[~2020-12-31] VITALS: Ht 167.6 cm; Wt 169.6 kg
[~2020-12-31 20:28] MED LIST changes: +CIPR500T5 PO; -METF-833 PO; -POLY17PO PO; +POLY17PO44 PO
[2020-12-31 20:30] VITALS: BP_SYST 161
[2020-12-31 21:15] LABS: BASOPHILS # (AUTO) 0.1 K/uL (0.0-0.2); BASOPHILS % (AUTO) 0.8 % (0.0-2.0); EOSINOPHILS # (AUTO) 0.2 K/uL (0.0-0.4); EOSINOPHILS % (AUTO) 1.6 % (0.0-4.0); HEMATOCRIT 31.7 % (36-54); HEMOGLOBIN 10.3 g/dL (14.0-18.0); LYMPHOCYTES # (AUTO) 1.3 K/uL (1.0-5.5); LYMPHOCYTES % (AUTO) 10.4 % (20.5-51.5); MEAN CORPUSCULAR HEMOGLOBIN 26 pg (27-31); MEAN CORPUSCULAR HGB CONC 33 % (32-36); MEAN CORPUSCULAR VOLUME 80 fL (79.0-98.0); MONOCYTES # (AUTO) 0.8 K/uL (0.0-1.0); MONOCYTES % (AUTO) 6.3 % (1.7-9.3); NEUTROPHILS # (AUTO) 9.9 K/uL (1.8-7.7); NEUTROPHILS % (AUTO) 80.9 % (40.0-70.0); PLATELET COUNT (AUTO) 175 K/uL (130-430); RED BLOOD CELL COUNT(AUTO) 3.98 MIL/uL (4.2-6.2); RED CELL DISTRIBUTION WIDTH 15.7 % (9.0-15.0); WHITE BLOOD COUNT (AUTO) 12.2 K/uL (4.8-10.8)
[2020-12-31 21:43] LABS: CALCIUM 8.7 mg/dL (8.4-11.0); CREATININE 1.74 mg/dL (0.55-1.30); POTASSIUM 4.2 mmol/L (3.5-5.1)
[2020-12-31 21:48] LABS: ALBUMIN 3.2 g/dL (3.4-4.8); TOTAL BILIRUBIN 0.8 mg/dL (0.0-1.0)
[2020-12-31] MEDS ORDERED: VANCOMYCIN HCL 1,500 MG in NS 250 ML IV ONE (22:30)
[2020-12-31] MEDS ORDERED: LORazepam 2 MG/ML VIAL IVP ONE (22:30)
[2020-12-31] MEDS ORDERED: PIPERACILLIN/TAZO 3.375 GM in NS 50 ML IV ONE (22:30)
[2020-12-31] MEDS ORDERED: MORPHINE 4 MG INJ. 4 MG/ML VIAL IVP ONE (22:30)
[2020-12-31] MEDS ORDERED: VANCOMYCIN HCL 1000 MG/VIAL IV ONE (22:47)
[2020-12-31] MEDS ORDERED: PIPERACILLIN/TAZOBACTAM 3.375 GM/VIAL (ZOSYN) IV ONE (22:47)
[2021-01-01] MEDS ORDERED: CLIN300C12 PO (01:24)
[2021-01-01] MEDS ORDERED: HYDR-3917 PO (01:24)
[2021-01-01 01:48] VITALS: BP_SYST 145
== END 2021-01-01 01:48 | disposition home or self-care (01) ==
LOC: SED 20:28
DX: L03.311 Cellulitis of abdominal wall (principal); E66.01 Morbid (severe) obesity due to excess calories; J45.909 Unspecified asthma, uncomplicated; Z68.44 Body mass index [BMI] 60.0-69.9, adult; Z88.5 Allergy status to narcotic agent; Z79.899 Other long term (current) drug therapy
CPT/HCPCS: 36415; 80053; 85025; 86140; 87040; 96365; 96366; 96368; 96375; 99284; J2060; J2270; J2543; J3370

== ENCOUNTER 2021-02-03 23:53 | Emergency (ER) | payer OTHER, MEDICAID ==
[~2021-02-03] VITALS: Ht 167.6 cm; Wt 163.3 kg
[~2021-02-03 23:53] MED LIST changes: +CLIN300C12 PO; +HYDR-3917 PO
[2021-02-04 00:10] VITALS: BP_SYST 116
[2021-02-04] MEDS ORDERED: ONDANSETRON HCL 4 MG/2 ML VIAL IVP ONE (00:45)
[2021-02-04] MEDS ORDERED: MORPHINE 2 MG/ML INJ. SYRINGE IVP ONE (00:45)
[2021-02-04] MEDS ORDERED: VANCOMYCIN HCL 1,000 MG in NS 250 ML IV ONE (00:45)
[2021-02-04] MEDS ORDERED: NACL 0.9% 1,000 ML IV ONE (00:45)
[2021-02-04] MEDS ORDERED: VANCOMYCIN HCL 1000 MG/VIAL IV ONE (01:47)
[2021-02-04] MEDS ORDERED: MORPHINE 2 MG/ML INJ. SYRINGE ONE (01:49)
[2021-02-04 02:24] LABS: BASOPHILS % (AUTO) 0.3 % (0.0-2.0); CALCIUM 8.5 mg/dL (8.4-11.0); CREATININE 1.73 mg/dL (0.55-1.30); EOSINOPHILS # (AUTO) 0.2 K/uL (0.0-0.4); HEMOGLOBIN 10.3 g/dL (14.0-18.0); LYMPHOCYTES # (AUTO) 1.6 K/uL (1.0-5.5); LYMPHOCYTES % (AUTO) 14.8 % (20.5-51.5); MEAN CORPUSCULAR HEMOGLOBIN 26 pg (27-31); MEAN CORPUSCULAR HGB CONC 33 % (32-36); MEAN CORPUSCULAR VOLUME 78 fL (79.0-98.0); MONOCYTES # (AUTO) 0.5 K/uL (0.0-1.0); MONOCYTES % (AUTO) 5.1 % (1.7-9.3); NEUTROPHILS # (AUTO) 8.4 K/uL (1.8-7.7); NEUTROPHILS % (AUTO) 77.8 % (40.0-70.0); PLATELET COUNT (AUTO) 147 K/uL (130-430); POTASSIUM 4.2 mmol/L (3.5-5.1); RED BLOOD CELL COUNT(AUTO) 3.99 MIL/uL (4.2-6.2); RED CELL DISTRIBUTION WIDTH 16.1 % (9.0-15.0); WHITE BLOOD COUNT (AUTO) 10.7 K/uL (4.8-10.8)
[2021-02-04 02:30] LABS: ALBUMIN 3.1 g/dL (3.4-4.8); TOTAL BILIRUBIN 0.2 mg/dL (0.0-1.0)
[2021-02-04 03:12] LABS: BILIRUBIN,URINE NEGATIVE (NEGATIVE); BLOOD, URINE 1+ (NEGATIVE); CLARITY/URINE CLEAR (CLEAR); COLOR,URINE YELLOW (YELLOW); GLUCOSE,URINE TRACE (NEGATIVE); KETONES,URINE NEGATIVE (NEGATIVE); LEUKOCYTE ESTERASE ,URINE NEGATIVE (NEGATIVE); NITRITE, URINE NEGATIVE (NEGATIVE); PROTEIN URINE 1+ (NEGATIVE); UROBILINOGEN,URINE 0.2 (0.2-1.0)
[2021-02-04 03:37] LABS: BACTERIA,URINE FEW /HPF (None Seen); WBC,URINE 0-3 /HPF (0-3)
[2021-02-04] MEDS ORDERED: cefTRIAXone 1 GM in D5W 50 ML IV ONE (03:45)
[2021-02-04] MEDS ORDERED: cefTRIAXone 1 GM VIAL ONE (03:54)
[2021-02-04] MEDS ORDERED: CEPH500C2 PO (04:49)
[2021-02-04] MEDS ORDERED: IBUP-1970 PO (04:49)
[2021-02-04 05:07] VITALS: BP_SYST 141
== END 2021-02-04 05:07 | disposition home or self-care (01) ==
LOC: SED 23:53
DX: R10.30 Lower abdominal pain, unspecified (principal); J45.909 Unspecified asthma, uncomplicated; I11.0 Hypertensive heart disease with heart failure; I50.9 Heart failure, unspecified; E11.9 Type 2 diabetes mellitus without complications; Z88.5 Allergy status to narcotic agent; Z79.899 Other long term (current) drug therapy
CPT/HCPCS: 36415; 74176; 76376; 80053; 81000; 83605; 85025; 87040; 96365; 96367; 96375; 99285; J0696; J2270; J2405; J3370

== ENCOUNTER 2021-02-18 15:28 | Inpatient (IN) | payer OTHER, MEDICAID, SELFPAY ==
[~2021-02-18] VITALS: Ht 167.6 cm; Wt 178.0 kg
[~2021-02-18 15:28] MED LIST changes: +CEPH500C2 PO; +IBUP-1970 PO
[2021-02-18 15:38] VITALS: BP_SYST 154
--- NOTE | 2021-02-18 15:38 | NUR ---
Patient to ER bed 07 to gown for evaluation. Side rails up.
--- NOTE | 2021-02-18 15:40 | NUR ---
Pt walked in to ER with c/o rash to abdomen and chest. Reports recenlty completing antibiotics for cellulitis but it's gotten worse. States it's painful to touch, 7/10. V/S stable, pt is afebrile. No acute distress noted.
--- NOTE | 2021-02-18 15:50 | NUR ---
ER Dr. Whitman at bedside examining patient.
--- NOTE | 2021-02-18 15:52 | NUR ---
Radiology at bedside for CXR.
[2021-02-18 16:16] LABS: BASOPHILS % (AUTO) 0.5 % (0.0-2.0); EOSINOPHILS # (AUTO) 0.2 K/uL (0.0-0.4); HEMOGLOBIN 10.2 g/dL (14.0-18.0); LYMPHOCYTES # (AUTO) 1.2 K/uL (1.0-5.5); LYMPHOCYTES % (AUTO) 12.9 % (20.5-51.5); MEAN CORPUSCULAR HEMOGLOBIN 25 pg (27-31); MEAN CORPUSCULAR HGB CONC 33 % (32-36); MEAN CORPUSCULAR VOLUME 76 fL (79.0-98.0); MONOCYTES # (AUTO) 0.6 K/uL (0.0-1.0); MONOCYTES % (AUTO) 6.1 % (1.7-9.3); NEUTROPHILS # (AUTO) 7.2 K/uL (1.8-7.7); NEUTROPHILS % (AUTO) 78.5 % (40.0-70.0); PLATELET COUNT (AUTO) 168 K/uL (130-430); RED BLOOD CELL COUNT(AUTO) 4.06 MIL/uL (4.2-6.2); RED CELL DISTRIBUTION WIDTH 16.1 % (9.0-15.0); WHITE BLOOD COUNT (AUTO) 9.2 K/uL (4.8-10.8)
[2021-02-18 16:41] LABS: CALCIUM 8.5 mg/dL (8.4-11.0); CREATININE 1.79 mg/dL (0.55-1.30); POTASSIUM 4.5 mmol/L (3.5-5.1)
--- NOTE | 2021-02-18 16:43 | NUR ---
Radiology at bedside for BLE ultra sound
[2021-02-18 16:46] LABS: ALBUMIN 3.2 g/dL (3.4-4.8); TOTAL BILIRUBIN 0.4 mg/dL (0.0-1.0)
[2021-02-18 16:47] LABS: INR 1.1 (0.80-1.20); PROTHROMBIN TIME 10.8 SECS (9.5-12.5)
[2021-02-18 16:56] LABS: C-REACTIVE PROTEIN QUANT 4.1 mg/dL (0-0.5)
[2021-02-18] MEDS ORDERED: PIPERACILLIN/TAZO 3.375 GM in NS 50 ML IV ONE (17:15)
[2021-02-18] MEDS ORDERED: VANCOMYCIN HCL 1,000 MG in NS 250 ML IV ONE ×2 (17:15→21:00)
--- NOTE | 2021-02-18 17:32 | NUR ---
Patient transported to radiology via wheelchair to CT scan, accompanied by staff.
[2021-02-18] MEDS ORDERED: VANCOMYCIN HCL 1000 MG/VIAL IV ONE ×2 (17:38→21:23)
[2021-02-18] MEDS ORDERED: PIPERACILLIN/TAZOBACTAM 3.375 GM/VIAL (ZOSYN) IV ONE (17:38)
[2021-02-18] MEDS ORDERED: fentaNYL CITRATE/PF 100 MCG/2 ML AMP IVP ONE (18:15)
[2021-02-18] MEDS ORDERED: ONDANSETRON HCL 4 MG/2 ML VIAL IVP ONE (18:15)
--- NOTE | 2021-02-18 18:18 | NUR ---
Med rec and belongings list completed. Pt notified family of admit
--- NOTE | 2021-02-18 19:12 | NUR ---
Care of patient endorsed to SMITA Vallejo. Pt currently resting in bed, no acute distress noted. Awaiting transfer to Tele bed 119A
[2021-02-18] MEDS ORDERED: CLINDAMYCIN 600 mg/50mL D5W 50 ML IV ONE ×2 (19:30→21:37)
[2021-02-18] MEDS ORDERED: LevALBUTEROL HCL 1.25 MG/0.5 ML *CONC.* VIAL.NEB (XOPENEX CONC.) INH PRN (19:30)
[2021-02-18] MEDS ORDERED: NALOXONE HCL 0.4 MG/ML AMP (NARCAN) IVP PRN ×2 (19:30)
[2021-02-18] MEDS ORDERED: LevALBUTEROL HCL 1.25 MG/0.5 ML *CONC.* VIAL.NEB (XOPENEX CONC.) INH ONE (19:30)
[2021-02-18 20:00] LABS: BILIRUBIN,URINE NEGATIVE (NEGATIVE); CLARITY/URINE CLEAR (CLEAR); COLOR,URINE YELLOW (YELLOW); GLUCOSE,URINE NEGATIVE (NEGATIVE); KETONES,URINE NEGATIVE (NEGATIVE); LEUKOCYTE ESTERASE ,URINE NEGATIVE (NEGATIVE); NITRITE, URINE NEGATIVE (NEGATIVE); PH,URINE 5.5 (5.0-8.0); PROTEIN URINE 2+ (NEGATIVE); UROBILINOGEN,URINE 0.2 (0.2-1.0)
[2021-02-18 20:02] LABS: BLOOD, URINE TRACE (NEGATIVE)
--- NOTE | 2021-02-18 20:20 | NUR ---
Patient will be admitted to care of . Admitted to Tele unit. Will go to room . Belongings list completed. Complete and up to date summary report printed. SBAR report to be given at bedside with opportunity for questions.
--- NOTE | 2021-02-18 20:20 | NUR ---
Transfer to Tele via ACLS protocol. Licensed nurse present. IV present no signs or symptoms of infiltration.
--- NOTE | 2021-02-18 20:23 | NUR ---
ADMISSION NOTE Received patient from ER via selma, received report from SMITA Vallejo. Patient admitted with diagnosis of abdominal cellulitis. Patient oriented to hospital routine, call light, toileting and safety-patient verbalized understanding.
[2021-02-18 20:38] LABS: RBC,URINE 0-3 /HPF (0-3); WBC,URINE NONE SEEN /HPF (0-3)
[2021-02-18 20:39] LABS: BACTERIA,URINE RARE /HPF (None Seen); CALCIUM OXALATE CRYSTALS,UR None Seen /HPF (None Seen); CALCIUM PHOSPHATE CRYSTALS,UR None Seen /HPF (None Seen); COARSE GRANULAR CASTS,URINE None Seen /LPF (None Seen); FINE GRANULAR CASTS,URINE None Seen /LPF (None Seen); HYALINE CASTS, URINE None Seen /LPF (None Seen); MUCUS,URINE None Seen /LPF (None Seen); OTHER CASTS, URINE None Seen /LPF (None Seen); OTHER CRYSTALS,URINE None Seen /HPF (None Seen); TRICHOMONAS,URINE None Seen /HPF (None Seen); TRIPLE PHOSPHATE CRYSTAL,UR None Seen /HPF (None Seen); URIC ACID CRYSTALS,URINE None Seen /HPF (None Seen); URINE AMORPHOUS PHOSPHATES None Seen /HPF (None Seen); URINE AMORPHOUS URATE None Seen /HPF (None Seen); WAXY CASTS,URINE None Seen /LPF (None Seen); YEAST,URINE None Seen /HPF (None Seen)
[2021-02-18] MEDS ORDERED: POTASSIUM CHLORIDE 20 MEQ/PKT PACKET PO SCH (21:00)
[2021-02-18] MEDS: lisinopriL 20 MG TABLET PO SCH (21:09)
[2021-02-18] MEDS: CARVEDILOL 25 MG TABLET (COREG) PO SCH (21:09)
[2021-02-18] MEDS: FUROSEMIDE 40 MG TABLET PO SCH (21:10)
[2021-02-18] MEDS: SPIRONOLACTONE 50 MG TABLET (ALDACTONE) PO SCH (21:10)
[2021-02-18] MEDS: GABAPENTIN 300 MG CAPSULE PO SCH (21:10)
[2021-02-18] MEDS: SIMVASTATIN 20 MG TABLET PO SCH (21:10)
[2021-02-18] MEDS: ENOXAPARIN SODIUM 30 MG/0.3 ML SYRINGE SUBCUT SCH (21:15)
[2021-02-18] MEDS: INSULIN GLARGINE 100 UNITS/ML 10 ML VIAL SQ SCH (21:16)
[2021-02-18] MEDS: INSULIN REGULAR, HUMAN 100 UNITS/ML, 10 ML VIAL (humuLIN R) SUBCUT PRN (21:20)
[2021-02-18] MEDS ORDERED: CLINDAMYCIN 600 mg/50mL D5W 100 ML IV ONE (21:23)
[2021-02-18 21:38] VITALS: BP_SYST 139
--- NOTE | 2021-02-18 22:25 | NUR ---
CONSULTATION PAGED/CALLED Reason for Consultation: CELLULITIS OF ABD WALL Person Who was Notified: VITALIY Consulting Physician: WIL Concentrator Operator Specialty: ID Ordering Physician: MARA
[2021-02-18] MEDS: HYDROcodone/ACETAMIN 5-325 MG TAB (NORCO/ VICODIN) PO PRN (23:30)
[2021-02-19] MEDS ORDERED: CLINDAMYCIN 600 mg/50mL D5W 50 ML IV SCH
--- NOTE | 2021-02-19 00:37 | NUR ---
ROOM CHANGE moved patient to room 122A. all belongings have been moved with patient. no s/s of distress. will monitor
[2021-02-19 01:12] VITALS: BP_SYST 98
[2021-02-19] MEDS: LevALBUTEROL HCL 1.25 MG/0.5 ML *CONC.* VIAL.NEB (XOPENEX CONC.) INH SCH ×4 (01:36→19:23)
[2021-02-19 01:38] VITALS: BP_SYST 98
[2021-02-19] MEDS: IBUPROFEN 800 MG TABLET PO PRN ×2 (04:22→10:33)
[2021-02-19] MEDS: CLINDAMYCIN 600 mg/50mL D5W 50 ML IV SCH ×3 (06:07→17:08)
[2021-02-19] MEDS: HYDROcodone/ACETAMIN 5-325 MG TAB (NORCO/ VICODIN) PO PRN ×2 (06:08→13:37)
[2021-02-19] MEDS: INSULIN REGULAR, HUMAN 100 UNITS/ML, 10 ML VIAL (humuLIN R) SUBCUT PRN ×3 (06:23→20:24)
--- NOTE | 2021-02-19 06:40 | NUR ---
CLOSING NOTE Patient is talkative and is sitting up in bed. Fall precautions in place. Bed is in lowest position with call light within reach. Will endorse to day shift RN.
[2021-02-19] MEDS ORDERED: ANUSOL 1 EA SUPP.RECT (PREPARATION H) RC PRN (07:00)
[2021-02-19 07:18] LABS: ALBUMIN 3.1 g/dL (3.4-4.8); CALCIUM 8.4 mg/dL (8.4-11.0); CREATININE 2.01 mg/dL (0.55-1.30); POTASSIUM 4.6 mmol/L (3.5-5.1); TOTAL BILIRUBIN 0.4 mg/dL (0.0-1.0)
[2021-02-19 07:34] LABS: VANCOMYCIN,RANDOM 11.1 ug/mL
[2021-02-19] MEDS: POLYETHYLENE GLYCOL 3350, 17 GM/ POWD.PACK PO SCH (08:39)
[2021-02-19] MEDS: ARIPiprazole 5 MG TAB PO SCH (08:39)
[2021-02-19] MEDS: ASPIRIN 81 MG TAB.CHEW PO SCH (08:41)
[2021-02-19] MEDS: PANTOPRAZOLE SODIUM 40 MG TAB PO SCH (08:41)
[2021-02-19] MEDS: lisinopriL 20 MG TABLET PO SCH (08:45)
[2021-02-19] MEDS ORDERED: OMEGA-3/DHA/EPA/FISH OIL 1 GM CAPSULE PO ONE (08:45)
[2021-02-19] MEDS: CITALOPRAM HYDROBROMIDE 20 MG TABLET PO SCH (08:46)
[2021-02-19] MEDS: GABAPENTIN 300 MG CAPSULE PO SCH ×3 (08:46→20:15)
[2021-02-19] MEDS: MAGNESIUM OXIDE 400 MG TABLET PO SCH (08:46)
[2021-02-19] MEDS: SPIRONOLACTONE 50 MG TABLET (ALDACTONE) PO SCH ×2 (08:47→20:16)
[2021-02-19] MEDS: CARVEDILOL 25 MG TABLET (COREG) PO SCH ×2 (08:47→20:14)
[2021-02-19 08:51] VITALS: BP_SYST 136
[2021-02-19] MEDS ORDERED: OMEGA-3/DHA/EPA/FISH OIL 1 GM CAPSULE PO SCH (09:00)
[2021-02-19] MEDS ORDERED: VANCOMYCIN HCL 1 GM/NS PREMIX 250 ML IV ONE (09:00)
--- NOTE | 2021-02-19 09:53 | NUR ---
Nutrition Update Ronnie Scale 17 noted. Pt admitted for abd cellulitis. Diet: [facility] BMI: 56.5 kg/m2 RD to follow per nutrition care standards.
[2021-02-19] MEDS: FUROSEMIDE 40 MG TABLET PO SCH ×2 (10:10→20:16)
--- NOTE | 2021-02-19 12:00 | NUR ---
LATEST BS 217 MG/DL. COVERAGE GIVEN ORDERED.
[2021-02-19 12:10] VITALS: BP_SYST 113
--- NOTE | 2021-02-19 13:38 | NUR ---
NORCO TAB GIVEN. MADE COMFORTABLE.
--- NOTE | 2021-02-19 15:50 | NUR ---
CONSULTATION: REASON FOR CONSULT: RENAL FAILURE CONSULTING PHYSICIAN: JILLIAN ORDERED BY: MARA SPOKE WITH ARLEY [phone]
--- NOTE | 2021-02-19 15:54 | NUR ---
CONSULTATION: REASON FOR CONSULT: SLEEPING APNEA CONSULTING PHYSICIAN: NADIRA ORDERED BY: NADIRA LOPEZ IS AZURE DEVELOPER AND I USED PAGER FOR CONSULT [phone]
--- NOTE | 2021-02-19 15:57 | NUR ---
CONSULTATION: REASON FOR CONSULT: CARDIOMYOPATHY CONSULTING PHYSICIAN: POLINA ORDERED BY: MARA SPOKE WITH FATUMA [phone]
[2021-02-19 16:13] VITALS: BP_SYST 103
--- NOTE | 2021-02-19 17:16 | NUR ---
Dietitian Recommendations * Recommend CCHO, renal diet. LP, RD Please refer to Nutrition Assessment for details. Addendum: 02/19/21 at 1717 by Ant GAMING Amended: Links added.
[2021-02-19] MEDS ORDERED: COMMUNICATION ORDER XX ONE (18:30)
--- NOTE | 2021-02-19 19:45 | NUR ---
INITIAL NOTES: PT IS AWAKE ,CONFUSED ,SITTING UP IN RECLINER , PER RT / RN PT REFUSED BIPAP , PT IS ON O2 2L NC AT THIS TIME ; VITALS ARE STABLE ; PLACED PT ON CONTINUOS PULSE OX TO MONITOR O2 SAT ; ASSISTED PT BACK TO BED , PT IS NOT IN ANY ACUTE DISTRESS ; NOTICED IV TO THE LEFT HAND IS INFILTRATED ; WILL START NEW IV ; ASSESSMENT COMPLETED ; WILL CONTINUE TO MONITOR PT ;BED IN LOW AND LOCK POSITION ; BED ALARM IS ON ; WILL CONTINUE TO MONITOR PT . Addendum: 02/20/21 at 0453 by Nuris Negro RN PT HAS ANKLE MONITOR ON , HAS 1 FINGER SPACE BETWEEN
[2021-02-19 20:00] VITALS: BP_SYST 146
[2021-02-19] MEDS: AMPICILLIN SODIUM/SULBACTAM NA 1.5 GM in NS 50 ML IV SCH (20:11)
[2021-02-19] MEDS: SIMVASTATIN 20 MG TABLET PO SCH (20:15)
[2021-02-19] MEDS: INSULIN GLARGINE 100 UNITS/ML 10 ML VIAL SQ SCH (20:23)
[2021-02-19] MEDS: ENOXAPARIN SODIUM 30 MG/0.3 ML SYRINGE SUBCUT SCH (20:28)
--- NOTE | 2021-02-19 20:30 | NUR ---
NEW IV: NEW IV STARTED TO THE R HAND 22G X1 ATTEMPT , GOOD BLOOD RETURN NOTICED ; IV FLUSHED WELL ;OLD IV CATH DCD , CATH TIP IS INTACT ; DUE MEDS GIVEN PER ORDER ;PT IS ABLE TO SWALLOW WELL ;WILL CONTINUE TO MONITOR PT .
--- NOTE | 2021-02-20 00:10 | NUR ---
RN ROUNDS: PT IS CONFUSED STILL ; PT IS REMOVING O2 , REORIENTED PT ;PLACED PT BACK ON O2 2L NC ;WILL CONTINUE TO MONITOR PT .
[2021-02-20] MEDS: CLINDAMYCIN 600 mg/50mL D5W 50 ML IV SCH ×5 (00:17→23:28)
[2021-02-20] MEDS: LevALBUTEROL HCL 1.25 MG/0.5 ML *CONC.* VIAL.NEB (XOPENEX CONC.) INH SCH ×4 (00:34→19:57)
[2021-02-20 01:57] VITALS: BP_SYST 134
[2021-02-20] MEDS: HYDROcodone/ACETAMIN 5-325 MG TAB (NORCO/ VICODIN) PO PRN (03:17)
--- NOTE | 2021-02-20 04:53 | NUR ---
RN NOTES: PT IS CONFUSED , ON O2 2L NC , SAT 99% ;REORIENTED PT ; WILL CONTINUE TO MONITOR PT .
[2021-02-20] MEDS: INSULIN REGULAR, HUMAN 100 UNITS/ML, 10 ML VIAL (humuLIN R) SUBCUT PRN ×4 (06:23→20:59)
[2021-02-20 06:41] LABS: BASOPHILS % (AUTO) 0.5 % (0.0-2.0); EOSINOPHILS # (AUTO) 0.2 K/uL (0.0-0.4); EOSINOPHILS % (AUTO) 2.4 % (0.0-4.0); HEMATOCRIT 31.6 % (36-54); HEMOGLOBIN 10.4 g/dL (14.0-18.0); LYMPHOCYTES # (AUTO) 0.9 K/uL (1.0-5.5); LYMPHOCYTES % (AUTO) 12.9 % (20.5-51.5); MEAN CORPUSCULAR HEMOGLOBIN 25 pg (27-31); MEAN CORPUSCULAR HGB CONC 33 % (32-36); MEAN CORPUSCULAR VOLUME 78 fL (79.0-98.0); MONOCYTES # (AUTO) 0.5 K/uL (0.0-1.0); MONOCYTES % (AUTO) 6.4 % (1.7-9.3); NEUTROPHILS # (AUTO) 5.5 K/uL (1.8-7.7); NEUTROPHILS % (AUTO) 77.8 % (40.0-70.0); PLATELET COUNT (AUTO) 146 K/uL (130-430); RED BLOOD CELL COUNT(AUTO) 4.07 MIL/uL (4.2-6.2); RED CELL DISTRIBUTION WIDTH 16.1 % (9.0-15.0); WHITE BLOOD COUNT (AUTO) 7.1 K/uL (4.8-10.8)
[2021-02-20 07:18] LABS: CALCIUM 8.5 mg/dL (8.4-11.0); CREATININE 2.46 mg/dL (0.55-1.30); POTASSIUM 5.5 mmol/L (3.5-5.1)
--- NOTE | 2021-02-20 07:20 | NUR ---
CLOSING NOTES: REPORT GIVEN TO RN AT BEDSIDE ; ALL NEEDS ATTENDED , PT IS MORE ALERT AND ORIENTED AT THIS TIME ; ON O2 2L NC ; ALL NEEDS ATTENDED .REPORT GIVEN TO RN AT BEDSIDE .
[2021-02-20 08:00] VITALS: BP_SYST 132
[2021-02-20] MEDS: ARIPiprazole 5 MG TAB PO SCH (08:57)
[2021-02-20] MEDS: GABAPENTIN 300 MG CAPSULE PO SCH ×3 (08:57→20:51)
[2021-02-20] MEDS: ASPIRIN 81 MG TAB.CHEW PO SCH (08:57)
[2021-02-20] MEDS: CITALOPRAM HYDROBROMIDE 20 MG TABLET PO SCH (08:58)
[2021-02-20] MEDS: PANTOPRAZOLE SODIUM 40 MG TAB PO SCH (08:58)
[2021-02-20] MEDS: FUROSEMIDE 40 MG TABLET PO SCH (08:58)
[2021-02-20] MEDS: SPIRONOLACTONE 50 MG TABLET (ALDACTONE) PO SCH ×2 (08:59→20:50)
[2021-02-20] MEDS: CARVEDILOL 25 MG TABLET (COREG) PO SCH ×2 (08:59→20:51)
[2021-02-20] MEDS: OMEGA-3/DHA/EPA/FISH OIL 1 GM CAPSULE PO SCH (09:00)
[2021-02-20] MEDS: POLYETHYLENE GLYCOL 3350, 17 GM/ POWD.PACK PO SCH (09:13)
[2021-02-20] MEDS: MAGNESIUM OXIDE 400 MG TABLET PO SCH (09:14)
--- NOTE | 2021-02-20 09:29 | NUR ---
Nutrition Consult Nutrition Consult received for L foot wounds 02/20/21 1524. Pt was seen and assessed by RD and environmental health and safety intern yesterday, 02/19/21. Please refer to Nutrition Assessment for details. RD to continue to follow as per nutrition care standards. Addendum: 02/20/21 at 1024 by Ant GAMING UPDATE Pt will be seen for Nutrition F/U by 02/24/21 (moderate risk F/U policy/procedure)
[2021-02-20] MEDS: AMPICILLIN SODIUM/SULBACTAM NA 1.5 GM in NS 50 ML IV SCH ×2 (09:44→20:51)
--- NOTE | 2021-02-20 11:50 | NUR ---
RT NOTE: 1150 Changed half face mask to nasal mask for comfort. Pt tolerating change well. No resp distress noted. Addendum: 02/20/21 at 1152 by Tsaha Hall RT Amended: Links added.
[2021-02-20 12:10] VITALS: BP_SYST 147
--- NOTE | 2021-02-20 14:45 | NUR ---
WOUND EVALUATION: Wound Consult received from Dr. Martin. Thank you, Dr. Martin, for the consult. Patient received in a [place] Bed with a mattress, awake, alert, and oriented. Patient is unable to turn independently. Ronnie Score is a 16. Past Medical History: Cardiomyopathy, CHF, Diabetes Mellitus, Morbid Obesity, Hypertension. Recent Labs: WBC 7.1, RBC 4.07, hemoglobin 10.4, hematocrit 31.6, potassium 5.5, sodium 132, chloride 96, BUN 46, creatinine 2.46, GFR 30, glucose 257, POC glucose 265, PTT 25.1, fibrinogen 442, albumin 3.1. Microbiology: Blood culture results x2 in progress. Urine culture results in progress. MRSA screen results in progress. Intrinsic factors that delay wound healing: Cardiomyopathy, CHF, Diabetes Mellitus, Morbid Obesity. Extrinsic factors that delay wound healing: Decreased mobility. Wound Assessment: 1. Left plantar foot near first metatarsal head: Diabetic ulcer, present on admission. Wound bed has 100% red tissue within a crevice. Yellow callused tissue on periwound. No odor, no drainage. Periwound intact. Wound measures 1.0 cm x 2.0 cm x 0.5 cm. Recommend: Cleanse wound with normal saline. Apply sure prep to periwound. Apply Hydrogel to wound bed. Cover with 4 x 4 nonadhesive foam dressing. Wrap with Alen wrap. Perform wound care daily, and as needed for dressing soiling or dislodgment. 2. Left Foot Interdigital Space Between Toes 3 and 4: White macerated skin, present on admission. Skin is intact. 3. Left Foot Interdigital Space Between Toes 4 and 5: White macerated skin, present on admission. Skin is intact. 4. Right Foot Interdigital Space Between Toes 3 and 4: White macerated skin, present on admission. Skin is intact. 5. Right Foot Interdigital Space Between Toes 4 and 5: White macerated skin, present on admission. Skin is intact. Recommend: Cleanse interdigital space areas of all toes with normal saline. Dry thoroughly with gauze. Cut calcium alginate rope dressing to size and slide in between interdigital space areas of all toes. Perform site care daily, and as needed for dressing soiling or dislodgment. 6. Abdomen: Multiple areas of scattered healed wounds with dark discolored skin and dry black scabs, present on admission. Recommend: No dressings needed. Continue to monitor sites every shift. Also recommend: Encourage and assist patient as needed with repositioning every 2 hours with pillow support and off-load pressure areas with pillows for pressure re-distribution. Offload, elevate and float bilateral heels with pillows. Perform skin care and monitor skin integrity Q shift. Use Hydraguard barrier cream on buttocks and other moisture susceptible areas QID and as needed for soiling.
[2021-02-20] MEDS: ACETAMINOPHEN/CODEINE 300 MG-30 MG TABLET PO PRN ×2 (15:07→21:07)
--- NOTE | 2021-02-20 15:15 | NUR ---
RT NOTE: 1515 Pt found off BiPAP, sitting on recliner and on 2LPM nasal cannula. No resp distress noted. Addendum: 02/20/21 at 1547 by Tasha Hall RT Amended: Links added.
[2021-02-20 16:37] VITALS: BP_SYST 142
[2021-02-20 20:00] VITALS: BP_SYST 122
[2021-02-20] MEDS: SIMVASTATIN 20 MG TABLET PO SCH (20:49)
[2021-02-20] MEDS: ENOXAPARIN SODIUM 30 MG/0.3 ML SYRINGE SUBCUT SCH (20:52)
[2021-02-20] MEDS: INSULIN GLARGINE 100 UNITS/ML 10 ML VIAL SQ SCH (20:56)
[2021-02-20] MEDS ORDERED: FUROSEMIDE 40 MG/4 ML VIAL IVP SCH (21:00)
[2021-02-21] MEDS: LevALBUTEROL HCL 1.25 MG/0.5 ML *CONC.* VIAL.NEB (XOPENEX CONC.) INH SCH ×4 (00:06→19:47)
[2021-02-21 00:57] VITALS: BP_SYST 118
[2021-02-21] MEDS: INSULIN REGULAR, HUMAN 100 UNITS/ML, 10 ML VIAL (humuLIN R) SUBCUT PRN ×4 (06:13→21:41)
[2021-02-21] MEDS: CLINDAMYCIN 600 mg/50mL D5W 50 ML IV SCH ×3 (06:15→17:41)
--- NOTE | 2021-02-21 06:21 | NUR ---
CLOSING NOTE Patient is resting in bed, AAOx4, no s/s of acute distress noted. All needs met during shift. Fall precautions in place. Bed is in lowest position with call light within reach. Will continue to monitor until patient care is endorsed to day shift RN.
[2021-02-21 07:18] LABS: CALCIUM 8.5 mg/dL (8.4-11.0); CREATININE 2.07 mg/dL (0.55-1.30); POTASSIUM 5.1 mmol/L (3.5-5.1)
--- NOTE | 2021-02-21 07:37 | NUR ---
RN opening note Report was endorsed by night nurse, Patient appears to be resting with no signs of any distress, breathing is equal and non labored. patient has all safety precautions in place. patient has no other needs at this time.
[2021-02-21 09:00] VITALS: BP_SYST 150
[2021-02-21] MEDS: AMPICILLIN SODIUM/SULBACTAM NA 1.5 GM in NS 50 ML IV SCH ×2 (09:30→21:25)
[2021-02-21] MEDS: POLYETHYLENE GLYCOL 3350, 17 GM/ POWD.PACK PO SCH (09:30)
[2021-02-21] MEDS: ARIPiprazole 5 MG TAB PO SCH (09:30)
[2021-02-21] MEDS: SPIRONOLACTONE 50 MG TABLET (ALDACTONE) PO SCH ×2 (09:31→21:31)
[2021-02-21] MEDS: MAGNESIUM OXIDE 400 MG TABLET PO SCH (09:31)
[2021-02-21] MEDS: ASPIRIN 81 MG TAB.CHEW PO SCH (09:31)
[2021-02-21] MEDS: GABAPENTIN 300 MG CAPSULE PO SCH ×3 (09:32→21:25)
[2021-02-21] MEDS: CARVEDILOL 25 MG TABLET (COREG) PO SCH ×2 (09:32→21:32)
[2021-02-21] MEDS: CITALOPRAM HYDROBROMIDE 20 MG TABLET PO SCH (09:32)
[2021-02-21] MEDS: PANTOPRAZOLE SODIUM 40 MG TAB PO SCH (09:33)
[2021-02-21] MEDS: ACETAMINOPHEN/CODEINE 300 MG-30 MG TABLET PO PRN ×2 (09:33→15:39)
[2021-02-21] MEDS: OMEGA-3/DHA/EPA/FISH OIL 1 GM CAPSULE PO SCH (09:56)
--- NOTE | 2021-02-21 09:59 | NUR ---
medication Patient scheduled medication given per order. patient also complains of pain medicated per order. patient is awake and alert sitting in chair at bedside. patient educated court recording monitor light, call light is with patient. Patient has no other needs at this time. patient assisted to bathroom . machine design teacher at bedside to bring patient back to chair. no other needs at this time.
[2021-02-21] MEDS ORDERED: LACTOBACILLUS RHAMNOSUS GG 1 CAP CAPSULE PO ONE (10:30)
--- NOTE | 2021-02-21 11:57 | NUR ---
medication/ Accu check Patient scheduled medication given per order. patient is awake and alert sitting in chair assisted him back to bed. patient has call light with him, educated to use call light for assistance. patient's accu check done coverage given per order. patient is requesting a soda educated on blood sugar and fluid restriction. patient has no other needs at this time.
[2021-02-21 12:28] VITALS: BP_SYST 158
--- NOTE | 2021-02-21 13:20 | NUR ---
WOUND CARE PATIENTS WOUND CARE DONE PER ORDER. PATIENT IS AWAKE AND ALERT TOLERATED WELL. PATIENT EDUCATED MEAT SUPERVISOR LIGHT FOR ASSISTANCE. CALL LIGHT IS WITH PATIENT. PATIENT HAS NO OTHER NEEDS AT THIS TIME. CALL LIGHT IS WITH PATIENT.
--- NOTE | 2021-02-21 15:41 | NUR ---
medication Patients scheduled medication given per order. Patient complains of abdominal pain medicated per order. Patient is sitting in chair at bedside call light is with patient has no other needs at this time.
[2021-02-21 16:15] VITALS: BP_SYST 133
--- NOTE | 2021-02-21 17:49 | NUR ---
Accu check/medication Patients Accu check done, coverage given per order. Patient's scheduled medication also given. Patient is awake and alert sitting up in the chair at bed side. Patient shows no signs of any distress,breathing is equal and non labored.Patient has call light with him.educated to use for assistance. patient has no other needs at this time.
--- NOTE | 2021-02-21 18:35 | NUR ---
rn closing note Patient appears to be resting, breathing is equal and non labored. Patient is on telemonitor. Patient has call light with him.Patient has no other needs at this time.
--- NOTE | 2021-02-21 19:25 | NUR ---
OPENING NOTES PATIENT RESTING A, NO SIGNS OF ACUTE RESPIRATORY DISTRESS. CALL LIGHT WITHIN REACH, BED ALARM BED AT LOWEST POSITION. FALL, ASPIRATION, SAFETY AND RESPIRATORY PRECAUTIONS IN PLACE. WILL CONTINUE TO MONITOR.
[2021-02-21] MEDS: SIMVASTATIN 20 MG TABLET PO SCH (21:26)
[2021-02-21] MEDS: LACTOBACILLUS RHAMNOSUS GG 1 CAP CAPSULE PO SCH (21:27)
[2021-02-21] MEDS: FUROSEMIDE 40 MG/4 ML VIAL IVP SCH (21:32)
[2021-02-21] MEDS: ENOXAPARIN SODIUM 40 MG/0.4 ML SYRINGE SUBCUT SCH (21:34)
[2021-02-21] MEDS: INSULIN GLARGINE 100 UNITS/ML 10 ML VIAL SQ SCH (21:43)
--- NOTE | 2021-02-21 23:40 | NUR ---
PATIENT CONTINUES TO REST IN RECLINING CHAIR AND REFUSES TO GO BACK TO BED AT THIS TIME EVEN AFTER EDUCATION FOR PATIENT'S SAFETY PROVIDED. THE RECLINING CHAIR LOCKED, PATIENT HAS SLIP SOCKS ON, AND CALL LIGHT WITHIN REACH, BED LOCKED. BED AT LOWEST POSITION. FALL AND SAFETY PRECAUTIONS IN PLACE. WILL CONTINUE TO MONITOR.
[2021-02-22 00:37] VITALS: BP_SYST 127
[2021-02-22] MEDS: CLINDAMYCIN 600 mg/50mL D5W 50 ML IV SCH ×5 (00:41→23:51)
[2021-02-22] MEDS: LevALBUTEROL HCL 1.25 MG/0.5 ML *CONC.* VIAL.NEB (XOPENEX CONC.) INH SCH ×4 (01:30→19:35)
[2021-02-22] MEDS: INSULIN REGULAR, HUMAN 100 UNITS/ML, 10 ML VIAL (humuLIN R) SUBCUT PRN ×4 (06:28→20:46)
[2021-02-22 06:46] LABS: POTASSIUM 5.1 mmol/L (3.5-5.1)
--- NOTE | 2021-02-22 07:11 | NUR ---
CLOSING NOTES PATIENT RESTING, NO SIGNS OF ACUTE RESPIRATORY DISTRESS. CALL LIGHT WITHIN REACH, PATIENT DEMONSTRATED PROPER USAGE OF CALL LIGHT WITHIN REACH, BED ALARM ON, BED AT LOWEST POSITION, BED LOCKED. FALL, ASPIRATION, SAFETY AND RESPIRATORY PRECAUTIONS IN PLACE THROUGHOUT SHIFT. ALL NEEDS MET THROUGHOUT SHIFT. WILL ENDORSE CARE TO ONCOMING SHIFT.
[2021-02-22 08:00] VITALS: BP_SYST 121
--- NOTE | 2021-02-22 08:00 | NUR ---
PATIENT SITTING AT SIDE OF BED RECEIVING BREATHING TREATMENT, NO SIGNS OF ACUTE RESPIRATORY DISTRESS. CALL LIGHT WITHIN REACH, BED ALARM BED AT LOWEST POSITION. FALL, ASPIRATION, SAFETY AND RESPIRATORY PRECAUTIONS IN PLACE. WILL CONTINUE TO MONITOR.
[2021-02-22] MEDS: GABAPENTIN 300 MG CAPSULE PO SCH ×3 (08:44→20:23)
[2021-02-22] MEDS: PANTOPRAZOLE SODIUM 40 MG TAB PO SCH (08:44)
[2021-02-22] MEDS: ASPIRIN 81 MG TAB.CHEW PO SCH (08:44)
[2021-02-22] MEDS: AMPICILLIN SODIUM/SULBACTAM NA 1.5 GM in NS 50 ML IV SCH ×2 (08:44→20:24)
[2021-02-22] MEDS: CITALOPRAM HYDROBROMIDE 20 MG TABLET PO SCH (08:44)
[2021-02-22] MEDS: LACTOBACILLUS RHAMNOSUS GG 1 CAP CAPSULE PO SCH ×2 (08:44→20:23)
[2021-02-22] MEDS: MAGNESIUM OXIDE 400 MG TABLET PO SCH (08:46)
[2021-02-22] MEDS: POLYETHYLENE GLYCOL 3350, 17 GM/ POWD.PACK PO SCH (08:46)
[2021-02-22] MEDS: ARIPiprazole 5 MG TAB PO SCH (08:46)
[2021-02-22] MEDS: FUROSEMIDE 40 MG/4 ML VIAL IVP SCH ×2 (08:48→20:24)
[2021-02-22] MEDS: CARVEDILOL 25 MG TABLET (COREG) PO SCH ×2 (08:49→20:23)
[2021-02-22] MEDS: SPIRONOLACTONE 50 MG TABLET (ALDACTONE) PO SCH ×2 (08:49→20:23)
[2021-02-22] MEDS: ENOXAPARIN SODIUM 40 MG/0.4 ML SYRINGE SUBCUT SCH ×2 (08:50→20:25)
[2021-02-22] MEDS: OMEGA-3/DHA/EPA/FISH OIL 1 GM CAPSULE PO SCH (09:01)
[2021-02-22 09:10] VITALS: BP_SYST 127
[2021-02-22 12:39] VITALS: BP_SYST 149
[2021-02-22 16:00] VITALS: BP_SYST 102
--- NOTE | 2021-02-22 18:45 | NUR ---
PATIENT RESTING IN BED WITH EYES CLOSED BREATHING EVEN AND UNLABORED NO SIGN OF DISTRESS. ALL NEEDS MET THROUGH SHIFT. SAFETY PRECAUTIONS IN PLACE WILL ENDORSE TO NEXT SHIFT.
--- NOTE | 2021-02-22 19:30 | NUR ---
OOB PATIENT ASSISTED OUT OF BED FOR RESTROOM USE.
[2021-02-22 20:18] VITALS: BP_SYST 140
[2021-02-22] MEDS: SIMVASTATIN 20 MG TABLET PO SCH (20:22)
[2021-02-22] MEDS: INSULIN GLARGINE 100 UNITS/ML 10 ML VIAL SQ SCH (20:44)
--- NOTE | 2021-02-22 20:44 | NUR ---
MED PASS PATIENT DUE MEDICATIONS GIVEN. VITAL SIGNS STABLE. HS SNACK PROVIDED.
--- NOTE | 2021-02-22 22:00 | NUR ---
BIPAP PATIENT USING CPAP AT NIGHT.
--- NOTE | 2021-02-22 22:50 | NUR ---
OOB PATIENT ASSISTED OOB FOR REST ROOM USE.
[2021-02-23 00:23] VITALS: BP_SYST 140
--- NOTE | 2021-02-23 00:30 | NUR ---
ROUNDS PATIENT RESTING IN BED. NO DISTRESS NOTED ON CPAP.
[2021-02-23] MEDS: LevALBUTEROL HCL 1.25 MG/0.5 ML *CONC.* VIAL.NEB (XOPENEX CONC.) INH SCH ×4 (01:52→19:54)
--- NOTE | 2021-02-23 02:30 | NUR ---
OOB ASSISTED PATIENT OUT OF BED FOR REST ROOM USE.
[2021-02-23] MEDS: CLINDAMYCIN 600 mg/50mL D5W 50 ML IV SCH ×4 (05:38→23:08)
[2021-02-23] MEDS: INSULIN REGULAR, HUMAN 100 UNITS/ML, 10 ML VIAL (humuLIN R) SUBCUT PRN ×4 (05:45→21:55)
--- NOTE | 2021-02-23 06:15 | NUR ---
IV LINE PATIENT IV LINE LEAKING. NEW IV LINE INSERTED ON RT HAND GAUGE #22 WITH GOOD BLOOD RETURN. OLD IV LINE REMOVED. PRESSURE DRESSING APPLIED.
--- NOTE | 2021-02-23 06:31 | NUR ---
CLOSING NOTES PATIENT NEEDS ATTENDED. OFF CPAP ON 02 2L NC. BED IN LOWEST LOCKED POSITION. CALL LIGHT WITH IN REACH.
[2021-02-23 07:02] LABS: BASOPHILS % (AUTO) 0.4 % (0.0-2.0); EOSINOPHILS # (AUTO) 0.2 K/uL (0.0-0.4); EOSINOPHILS % (AUTO) 1.8 % (0.0-4.0); HEMATOCRIT 29.9 % (36-54); HEMOGLOBIN 9.7 g/dL (14.0-18.0); LYMPHOCYTES # (AUTO) 1.3 K/uL (1.0-5.5); LYMPHOCYTES % (AUTO) 15.1 % (20.5-51.5); MEAN CORPUSCULAR HEMOGLOBIN 25 pg (27-31); MEAN CORPUSCULAR HGB CONC 32 % (32-36); MEAN CORPUSCULAR VOLUME 77 fL (79.0-98.0); MONOCYTES # (AUTO) 0.6 K/uL (0.0-1.0); MONOCYTES % (AUTO) 7.1 % (1.7-9.3); NEUTROPHILS # (AUTO) 6.5 K/uL (1.8-7.7); NEUTROPHILS % (AUTO) 75.6 % (40.0-70.0); PLATELET COUNT (AUTO) 165 K/uL (130-430); RED BLOOD CELL COUNT(AUTO) 3.88 MIL/uL (4.2-6.2); RED CELL DISTRIBUTION WIDTH 16.2 % (9.0-15.0); WHITE BLOOD COUNT (AUTO) 8.6 K/uL (4.8-10.8)
[2021-02-23 07:25] LABS: ALBUMIN 3.1 g/dL (3.4-4.8); CALCIUM 9.1 mg/dL (8.4-11.0); CREATININE 2.07 mg/dL (0.55-1.30); POTASSIUM 4.9 mmol/L (3.5-5.1); TOTAL BILIRUBIN 0.5 mg/dL (0.0-1.0)
[2021-02-23 08:00] VITALS: BP_SYST 132
--- NOTE | 2021-02-23 08:00 | NUR ---
OPENING NOTES AWAKE AND ORIENTED, SITTING UP IN CHAIR. ONGOING BREATHING TREATMENT. DENIES ANY PAIN OR SHORTNESS OF BREATH. IV ACCESS IN RIGHT HAND INTACT. FALL AND SAFETY CHECKS IN PLACE. CALL LIGHT WITHIN REACH. WILL MONITOR.
[2021-02-23] MEDS: POLYETHYLENE GLYCOL 3350, 17 GM/ POWD.PACK PO SCH ×2 (09:00→09:27)
[2021-02-23] MEDS: AMPICILLIN SODIUM/SULBACTAM NA 1.5 GM in NS 50 ML IV SCH ×2 (09:24→21:30)
[2021-02-23] MEDS: SPIRONOLACTONE 50 MG TABLET (ALDACTONE) PO SCH ×2 (09:25→21:25)
[2021-02-23] MEDS: ASPIRIN 81 MG TAB.CHEW PO SCH (09:25)
[2021-02-23] MEDS: ARIPiprazole 5 MG TAB PO SCH (09:25)
[2021-02-23] MEDS: CITALOPRAM HYDROBROMIDE 20 MG TABLET PO SCH (09:26)
[2021-02-23] MEDS: PANTOPRAZOLE SODIUM 40 MG TAB PO SCH (09:26)
[2021-02-23] MEDS: MAGNESIUM OXIDE 400 MG TABLET PO SCH (09:26)
[2021-02-23] MEDS: GABAPENTIN 300 MG CAPSULE PO SCH ×3 (09:26→21:24)
[2021-02-23] MEDS: LACTOBACILLUS RHAMNOSUS GG 1 CAP CAPSULE PO SCH ×2 (09:26→21:25)
[2021-02-23] MEDS: CARVEDILOL 25 MG TABLET (COREG) PO SCH ×2 (09:27→21:25)
[2021-02-23] MEDS: FUROSEMIDE 40 MG/4 ML VIAL IVP SCH ×2 (09:27→21:24)
[2021-02-23] MEDS: ENOXAPARIN SODIUM 40 MG/0.4 ML SYRINGE SUBCUT SCH ×2 (09:28→21:31)
[2021-02-23] MEDS: OMEGA-3/DHA/EPA/FISH OIL 1 GM CAPSULE PO SCH (09:30)
--- NOTE | 2021-02-23 09:30 | NUR ---
REFUSED MED REFUSED TO TAKE MIRALAX. PATIENT SAID HE HAD A LOOSE STOOL THIS MORNING.
--- NOTE | 2021-02-23 11:00 | NUR ---
BOWEL MOVEMENT ASSISTED TO THE BATHROOM. SOFT STOOL NOTED. ASSISTED BACK TO BED. FALL AND SAFETY CHECKS DONE. CALL LIGHT WITHIN REACH.
[2021-02-23 12:13] VITALS: BP_SYST 128
--- NOTE | 2021-02-23 13:26 | NUR ---
Nutrition F/U Admitting Diagnosis: Abdominal Cellulitis Medical History Comment: HTN, Cardiomyopathy, DM, Morbid Obesity, CKD per MD notes. 02/23/21 MD notes: CHF, IDDM. SARS-CoV-2 Ag Rapid 02/18 Negative Subjective Information: RD s/w RN at nursing unit who reports that pt's fluid/water supply at bedside was decreased to be able to provide soda per pt request. Per EMR review, Pts clinical condition continues to improve, remains on IV abx and O2. Per nephrology, pt w/ stable renal function. BM 02/23 x2. Ronnie scale: 21. Pt was seen by brand specialist on 02/20: 1. Left plantar foot near first metatarsal head: Diabetic ulcer, present on admission. 2. Left Foot Interdigital Space Between Toes 3 and 4: White macerated skin, present on admission. Skin is intact. 3. Left Foot Interdigital Space Between Toes 4 and 5: White macerated skin, present on admission. Skin is intact. 4. Right Foot Interdigital Space Between Toes 3 and 4: White macerated skin, present on admission. Skin is intact. 5. Right Foot Interdigital Space Between Toes 4 and 5: White macerated skin, present on admission. Skin is intact. 6. Abdomen: Multiple areas of scattered healed wounds with dark discolored skin and dry black scabs, present on admission. Per RN notes, 2+ pitting edema to Left Right LE. Abdomen is soft w/ active bowel sounds. Pt w/ good PO intake (88% average of 12 meals). Pt w/ CHF, low Na+, on fluid restriction order per MD. Pt w/ diabetic ulcer and may benefit from Davin BID for wound healing. New weight documented by RN and pt w/ 64# weight gain in 6 daysmay be attributed to fluid retention. Pt may benefit from adding 2gm Na diet to current diet order along w/ Davin for wound. Current Diet Order/Nutrition Support: CCHO x 4 days Pertinent Medications: Lasix, Insulin, Lovenox, Culturelle, Mag oxide, Miralax. Pertinent Labs: 02/23 BG 196H, POC BG 188H, BUN 42H, Cre 2.71H Height: 5 feet, 6.00 inches Weight: 350 pounds/ 158.769841 kilograms. New weight: 414#/188kg (02/23) --64# weight gain in 6 days --fluid retention. Body Mass Index: 56.48 kg/m2. New BMI: 66.9 kg/m2. Cameron/Adjusted Body Weight : 142#/64.5kg Current % PO : Good (75-100%) NEW Estimated Energy Expenditure (kcals/day) 0395-7666 kcals/day (30-35 kcal/kg IBW for wound healing) NEW Estimated Protein Required (g/day) 64-77 g/day (1-1.2 g/kg IBW for wound healing) Estimated Fluid Required (l/day) FR 1200 ml/day (per physician order) Problem/Etiology/Signs/Symptoms Malnutrition related to morbid obesity as evidenced by BMI: 56.5 kg/m2 and 246% IBW. (*ongoing) Altered nutrition related lab values related to endocrine and renal dysfunction as evidenced by abnormal BG, POC BG, BUN, CRE, and eGFR lab values. (*ongoing) Expected Outcomes/Goals Monitor appetite and PO intakes w/ goal of pt meeting at least 75% of estimated nutritional needs, labs trending WNL, normal GI function, and skin integrity/wt maintenance. Dietitian Recommendations * Recommend CCHO, 2gm Na diet, Davin BID Follow Up Mod Risk: F/U in 3-5 days
--- NOTE | 2021-02-23 13:45 | NUR ---
Dietitian Recommendations * Recommend CCHO, 2gm Na diet, Davin BID Please see Nutrition F/U note for details. KURTIS, RD
[2021-02-23 16:17] VITALS: BP_SYST 131
--- NOTE | 2021-02-23 16:21 | NUR ---
Referral sent to [facility] and [facility] for BiPAP.
--- NOTE | 2021-02-23 18:47 | NUR ---
CLOSING NOTES SITTING UP IN CHAIR. NO SHORTNESS OF BREATH ON 2 LITERS OF NASAL CANNULA. DENIES ANY PAIN. IV ACCESS IN PLACE. FALL AND SAFETY CHECKS DONE. CALL LIGHT WITHIN REACH. WILL ENDORSE TO NIGHT NURSE.
--- NOTE | 2021-02-23 19:25 | NUR ---
OPENING NOTES PATIENT RESTING IN [place] CHAIR, NO SIGNS OF ACUTE RESPIRATORY DISTRESS. [place] CHAIR LOCKED, FALL PRECAUTIONS IN PLACE, CALL LIGHT WITHIN REACH, PATIENT DEMONSTRATES PROPER CALL LIGHT USAGE, BED ALARM TO BE ON ONCE PATIENT IS BACK IN BED, BED AT LOWEST POSITION. FALL, ASPIRATION, SAFETY AND RESPIRATORY PRECAUTIONS IN PLACE. WILL CONTINUE TO MONITOR.
--- NOTE | 2021-02-23 21:20 | NUR ---
PATIENT USED CALL LIGHT TO STATE "I KIND OF FELL". RNS WENT TO THE PATIENT'S ROOM, NOTICED PATIENT LYING DOWN AT THE BED, PATIENT STATED HE WAS SITTING IN THE [place] CHAIR, WAS TRYING TO GET UP AND ACCIDENTLY STEPPED ON HIS GOWN AND FELL ON HIS LEFT SIDE (SHOULDER, BUTTOCKS). NO BRUISES, NO OPEN SKIN NOTED, VITALS STABLE , CALL LIGHT WAS WITHIN REACH WHEN IN [place] CHAIR, [place] CHAIR LOCKS ON, FALL RISK WAS EXPLAINED BEFOREHAND. WILL CONTINUE TO MONITOR.
[2021-02-23] MEDS: SIMVASTATIN 20 MG TABLET PO SCH (21:25)
--- NOTE | 2021-02-23 21:30 | NUR ---
PATIENT RESTING, NO SIGNS OF DISTRESS NOTED, PATIENT IN BED, BED ALARM ON, BED AT LOWEST POSITION. PATIENT ON THE PHONE WITH DAUGHTER. WILL CONTINUE TO MONITOR.
[2021-02-23] MEDS: INSULIN GLARGINE 100 UNITS/ML 10 ML VIAL SQ SCH (21:56)
--- NOTE | 2021-02-23 22:15 | NUR ---
Paged Dr. Martin
--- NOTE | 2021-02-23 22:50 | NUR ---
PAGED DR. TERRY
--- NOTE | 2021-02-23 23:11 | NUR ---
Yahir Martin s/w Min
--- NOTE | 2021-02-23 23:30 | NUR ---
SPOKE TO DR. TERRY, NOTIFIED THAT PATIENT HAD HAD A FALL. PATIENT WAS FOUND IN BED WHEN PATIENT USED CALL LIGHT TO NOTIFY THAT HE HAD "KIND OF FALLEN" BUT HAD HIT HIS LEFT SHOULDER AND BUTTOCKS, VITALS STABLE, NO OPEN SKIN, NO BRUISES NOTED, NO SOB, PATIENT STATES NO PAIN. MD STATES TO MONITOR AND NO NEW ORDERS. WILL FOLLOW THROUGH.
[2021-02-24] MEDS: LevALBUTEROL HCL 1.25 MG/0.5 ML *CONC.* VIAL.NEB (XOPENEX CONC.) INH SCH ×4 (00:13→19:44)
--- NOTE | 2021-02-24 00:25 | NUR ---
PATIENT RESTING, NO SIGNS OF DISTRESS NOTED. CALL LIGHT WITHIN REACH, BED ALARM ON, BED AT LOWEST POSITION. WILL CONTINUE TO MONITOR.
[2021-02-24 00:26] VITALS: BP_SYST 118
--- NOTE | 2021-02-24 06:15 | NUR ---
CLOSING NOTES PATIENT RESTING ON 2L NC, USED BIPAP THROUGHOUT NIGHT, NO SIGNS OF ACUTE RESPIRATORY DISTRESS. CALL LIGHT WITHIN REACH, PATIENT DEMONSTRATED PROPER CALL LIGHT USAGE, BED ALARM ON, BED LOCKED, BED AT LOWEST POSITION. FALL, ASPIRATION, SAFETY AND RESPIRATORY PRECAUTIONS IN PLACE THROUGHOUT SHIFT. ALL NEEDS MET THROUGHOUT SHIFT. WILL ENDORSE CARE TO ONCOMING SHIFT.
[2021-02-24] MEDS: CLINDAMYCIN 600 mg/50mL D5W 50 ML IV SCH (06:20)
[2021-02-24] MEDS: INSULIN REGULAR, HUMAN 100 UNITS/ML, 10 ML VIAL (humuLIN R) SUBCUT PRN ×4 (06:22→21:56)
[2021-02-24 06:45] LABS: CALCIUM 9.5 mg/dL (8.4-11.0); CREATININE 1.81 mg/dL (0.55-1.30); POTASSIUM 4.6 mmol/L (3.5-5.1)
--- NOTE | 2021-02-24 07:44 | NUR ---
OPENING NOTES ASLEEP IN BED. ORIENTED. NO SHORTNESS OF BREATH ON 2 LITERS OF OXYGEN ON NASAL CANNULA. DENIES ANY PAIN AT THIS TIME. IV ACCESS INTACT. FALL AND SAFETY CHECKS DONE. CALL LIGHT WITHIN REACH. WILL MONITOR.
[2021-02-24 08:00] VITALS: BP_SYST 125
[2021-02-24] MEDS: POLYETHYLENE GLYCOL 3350, 17 GM/ POWD.PACK PO SCH (09:00)
[2021-02-24] MEDS: AMPICILLIN SODIUM/SULBACTAM NA 1.5 GM in NS 50 ML IV SCH ×2 (09:04→20:28)
[2021-02-24] MEDS: ARIPiprazole 5 MG TAB PO SCH (09:04)
[2021-02-24] MEDS: OMEGA-3/DHA/EPA/FISH OIL 1 GM CAPSULE PO SCH (09:05)
[2021-02-24] MEDS: LACTOBACILLUS RHAMNOSUS GG 1 CAP CAPSULE PO SCH ×2 (09:05→20:30)
[2021-02-24] MEDS: PANTOPRAZOLE SODIUM 40 MG TAB PO SCH (09:05)
[2021-02-24] MEDS: ASPIRIN 81 MG TAB.CHEW PO SCH (09:05)
[2021-02-24] MEDS: SPIRONOLACTONE 50 MG TABLET (ALDACTONE) PO SCH ×2 (09:06→20:34)
[2021-02-24] MEDS: GABAPENTIN 300 MG CAPSULE PO SCH ×3 (09:06→20:30)
[2021-02-24] MEDS: CITALOPRAM HYDROBROMIDE 20 MG TABLET PO SCH (09:06)
[2021-02-24] MEDS: MAGNESIUM OXIDE 400 MG TABLET PO SCH (09:07)
[2021-02-24] MEDS: FUROSEMIDE 40 MG/4 ML VIAL IVP SCH ×2 (09:08→20:35)
[2021-02-24] MEDS: CARVEDILOL 25 MG TABLET (COREG) PO SCH ×2 (09:09→20:35)
[2021-02-24] MEDS: ENOXAPARIN SODIUM 40 MG/0.4 ML SYRINGE SUBCUT SCH ×2 (09:11→20:30)
[2021-02-24 12:13] VITALS: BP_SYST 134
[2021-02-24] MEDS: HYDROcodone/ACETAMIN 5-325 MG TAB (NORCO/ VICODIN) PO PRN (12:43)
--- NOTE | 2021-02-24 12:43 | NUR ---
PAIN COMPLAINED OF 6/10 PAIN ON THE ABDOMEN. WILL MEDICATE.
--- NOTE | 2021-02-24 14:53 | NUR ---
Aysha for Bipap sent to [facility], [place]. They called and said patient does not qualify for Bipap, he will need a sleep study to quality for Cpap. They can try to qualify him for a trilogy machine but they need a ABG with a CO2 above 55. Text sent to Dr Martin requesting an ABG order.
[2021-02-24 16:10] VITALS: BP_SYST 134
--- NOTE | 2021-02-24 17:19 | NUR ---
WOUND CARE WOUND CARE DONE ON LEFT FOOT. PATIENT TOLERATED PROCEDURE WELL. SAFETY CHECKS DONE.
--- NOTE | 2021-02-24 20:00 | NUR ---
OPENING NOTES PT RECEIVED SITTING UP IN BED WATCHING TV RECEIVING BREATHING TREATMENT. A/OX4, CALM AND COOPERATIVE. RESPIRATIONS EVEN UNLABORED, DENIES SOB AT REST BUT REPORTS SOB WITH EXERTION. PERIPHERAL PULSES WEAK. 2+ PITTING EDEMA BLE, 1+ PITTING EDEMA BILATERAL FEET. DENIES CHEST PAIN. REPORTS ADEQUATE UOP, GREATER THAN INTAKE. ABD ROUND, WARM AND TAUT. DISCOLORATION TO BLE. REPORTS PAIN ABD PAIN 6/10. AMBULATORY WITH FWW. BED IN LOWEST POSITION, SIDE RAILS X 2, CALL LIGHT AND ASSISTIVE DEVICE WITHIN REACH.
[2021-02-24] MEDS: ACETAMINOPHEN/CODEINE 300 MG-30 MG TABLET PO PRN ×2 (20:31→21:59)
[2021-02-24] MEDS: SIMVASTATIN 20 MG TABLET PO SCH (20:35)
[2021-02-24] MEDS: INSULIN GLARGINE 100 UNITS/ML 10 ML VIAL SQ SCH (21:55)
[2021-02-25 00:06] VITALS: BP_SYST 144
[2021-02-25] MEDS: LevALBUTEROL HCL 1.25 MG/0.5 ML *CONC.* VIAL.NEB (XOPENEX CONC.) INH SCH ×4 (01:30→19:40)
[2021-02-25 04:26] VITALS: BP_SYST 118
[2021-02-25] MEDS: INSULIN REGULAR, HUMAN 100 UNITS/ML, 10 ML VIAL (humuLIN R) SUBCUT PRN ×4 (06:39→21:06)
--- NOTE | 2021-02-25 07:20 | NUR ---
OPENING NOTE RECEIVED SBAR FROM NIGHT RN, PATIENT IN BED, RESPIRATIONS EVEN, NON LABORED, BED IN LOW AND LOCKED POSITION, CALL LIGHT WITHIN REACH,
--- NOTE | 2021-02-25 07:44 | NUR ---
MD ROUNDS DR FISH BEDSIDE EXAMINING PATIENT
[2021-02-25 08:00] VITALS: BP_SYST 150
[2021-02-25 08:04] LABS: CALCIUM 9.5 mg/dL (8.4-11.0); CREATININE 1.86 mg/dL (0.55-1.30); POTASSIUM 4.7 mmol/L (3.5-5.1)
[2021-02-25] MEDS: ASPIRIN 81 MG TAB.CHEW PO SCH (08:26)
[2021-02-25] MEDS: POLYETHYLENE GLYCOL 3350, 17 GM/ POWD.PACK PO SCH (08:26)
[2021-02-25] MEDS: LACTOBACILLUS RHAMNOSUS GG 1 CAP CAPSULE PO SCH ×2 (08:27→21:03)
[2021-02-25] MEDS: GABAPENTIN 300 MG CAPSULE PO SCH ×3 (08:27→21:03)
[2021-02-25] MEDS: ARIPiprazole 5 MG TAB PO SCH (08:27)
[2021-02-25] MEDS: OMEGA-3/DHA/EPA/FISH OIL 1 GM CAPSULE PO SCH (08:27)
[2021-02-25] MEDS: CARVEDILOL 25 MG TABLET (COREG) PO SCH ×2 (08:28→21:04)
[2021-02-25] MEDS: MAGNESIUM OXIDE 400 MG TABLET PO SCH (08:28)
[2021-02-25] MEDS: PANTOPRAZOLE SODIUM 40 MG TAB PO SCH (08:28)
[2021-02-25] MEDS: FUROSEMIDE 40 MG/4 ML VIAL IVP SCH ×2 (08:29→21:05)
[2021-02-25] MEDS: CITALOPRAM HYDROBROMIDE 20 MG TABLET PO SCH (08:29)
[2021-02-25] MEDS: SPIRONOLACTONE 50 MG TABLET (ALDACTONE) PO SCH ×2 (08:29→21:03)
[2021-02-25] MEDS: ENOXAPARIN SODIUM 40 MG/0.4 ML SYRINGE SUBCUT SCH ×2 (08:37→21:06)
[2021-02-25] MEDS: AMPICILLIN SODIUM/SULBACTAM NA 1.5 GM in NS 50 ML IV SCH ×2 (08:44→21:04)
--- NOTE | 2021-02-25 11:23 | NUR ---
INFORMED DR PRICE OF PATIENTS ABG ON RA. NO NEW ORDERS RECEIVED
[2021-02-25 12:00] VITALS: BP_SYST 146
--- NOTE | 2021-02-25 13:00 | NUR ---
NURSE NOTE PATIENT IN BED, RESPIRATIONS EVEN, NON LABORED, BED IN LOW AND LOCKED POSITION CALL LIGHT WITHIN REACH
[2021-02-25] MEDS: HYDROcodone/ACETAMIN 5-325 MG TAB (NORCO/ VICODIN) PO PRN (15:22)
[2021-02-25 16:00] VITALS: BP_SYST 148
--- NOTE | 2021-02-25 18:28 | NUR ---
NURSE NOTE PATIENT IN BED, RESPIRATIONS EVEN, NON LABORED, BED IN LOW AND LOCKED POSITION CALL LIGHT WITHIN REACH
--- NOTE | 2021-02-25 19:14 | NUR ---
CLOSING NOTE PROVIDED SBAR TO NIGHT RN, PATIENT IN BED, RESPIRATIONS EVEN, NON LABORED, BED IN LOW AND LOCKED POSITION CALL LIGHT WITHIN REACH, ENDORSED CARE TO NIGHT RN
--- NOTE | 2021-02-25 19:40 | NUR ---
ROUNDS PATIENT SITTING UP IN THE CHAIR, WATCHING TV, VITALS STABLE. DENIES PAIN AT THIS TIME. ASSESSMENT DONE AND DOCUEMTED. SEE FLOWSHEET. NEEDS ATTENDED TO. SAFETY MEASURES IN PLACED. BED IN LOW AD LOCKED POSITION. CALL LIGHT PLACED WITHIN REACH.
[2021-02-25 20:00] VITALS: BP_SYST 125
[2021-02-25] MEDS: SIMVASTATIN 20 MG TABLET PO SCH (21:02)
--- NOTE | 2021-02-25 21:16 | NUR ---
MEDICATIONS DUE MEDICATIONS GIVEN SCHEDULED, TOLERATED WELL. WILL CONTINUE TO MONITOR.
[2021-02-25] MEDS: ACETAMINOPHEN/CODEINE 300 MG-30 MG TABLET PO PRN (21:53)
[2021-02-25] MEDS: INSULIN GLARGINE 100 UNITS/ML 10 ML VIAL SQ SCH (21:57)
[2021-02-26] VITALS: BP_SYST 130
[2021-02-26] MEDS: LevALBUTEROL HCL 1.25 MG/0.5 ML *CONC.* VIAL.NEB (XOPENEX CONC.) INH SCH ×3 (00:45→13:00)
--- NOTE | 2021-02-26 02:14 | NUR ---
ROUNDS PATIET ASLEEP, RESPIRATIONS EVEN AND UNLABORED, WILL CONTINUE TO MONITOR.
[2021-02-26] MEDS: INSULIN REGULAR, HUMAN 100 UNITS/ML, 10 ML VIAL (humuLIN R) SUBCUT PRN ×2 (05:26→11:11)
--- NOTE | 2021-02-26 06:26 | NUR ---
RODRÍGUEZ NOTES PATIENT AWAKE, NO COMPLAINTS AT THIS TIME, VITALS STALE. ALL NEEDS ATTENDED TO. SAFETY MEASURES MAINTAINED. BED IN LOW AND LOCKED POSITION. CALL LIGHT PLACED WITHIN REACH.
--- NOTE | 2021-02-26 07:20 | NUR ---
opening note received sbar from night RN, patient in bed receiving breathing treatment, bed in low and locked position, call light within reach, iv saline locked
[2021-02-26 07:21] LABS: CALCIUM 9.9 mg/dL (8.4-11.0); CREATININE 1.89 mg/dL (0.55-1.30); POTASSIUM 4.3 mmol/L (3.5-5.1)
[2021-02-26 08:00] VITALS: BP_SYST 150
[2021-02-26] MEDS: AMPICILLIN SODIUM/SULBACTAM NA 1.5 GM in NS 50 ML IV SCH (08:52)
[2021-02-26] MEDS: PANTOPRAZOLE SODIUM 40 MG TAB PO SCH (08:53)
[2021-02-26] MEDS: LACTOBACILLUS RHAMNOSUS GG 1 CAP CAPSULE PO SCH (08:53)
[2021-02-26] MEDS: MAGNESIUM OXIDE 400 MG TABLET PO SCH (08:53)
[2021-02-26] MEDS: OMEGA-3/DHA/EPA/FISH OIL 1 GM CAPSULE PO SCH (08:53)
[2021-02-26] MEDS: GABAPENTIN 300 MG CAPSULE PO SCH (08:53)
[2021-02-26] MEDS: ASPIRIN 81 MG TAB.CHEW PO SCH (08:53)
[2021-02-26] MEDS: ARIPiprazole 5 MG TAB PO SCH (08:53)
[2021-02-26] MEDS: CITALOPRAM HYDROBROMIDE 20 MG TABLET PO SCH (08:54)
[2021-02-26] MEDS: CARVEDILOL 25 MG TABLET (COREG) PO SCH (08:54)
[2021-02-26] MEDS: SPIRONOLACTONE 50 MG TABLET (ALDACTONE) PO SCH (08:54)
[2021-02-26] MEDS: FUROSEMIDE 40 MG/4 ML VIAL IVP SCH (08:55)
[2021-02-26] MEDS: POLYETHYLENE GLYCOL 3350, 17 GM/ POWD.PACK PO SCH (08:55)
[2021-02-26] MEDS: ENOXAPARIN SODIUM 40 MG/0.4 ML SYRINGE SUBCUT SCH (08:56)
--- NOTE | 2021-02-26 08:58 | NUR ---
PHYSICAL THERAPY CO-SIGN The Physical Therapy Progress Notes documented by Functional Director have been reviewed. Reviewed/Co-Signed by: Divya Rodriguez Documentation Done by: BHAVESH MAJANO PTA Addendum: 02/26/21 at 0859 by Divya Rodriguez PT Amended: Links added.
--- NOTE | 2021-02-26 10:00 | NUR ---
nurse note patient sitting in bed, respirations even, non labored, bed in low and locked position call light within reach, patient denies any pain or discomfort
[2021-02-26 12:21] VITALS: BP_SYST 149
--- NOTE | 2021-02-26 12:32 | NUR ---
nurse note provided patient with lunch, sitting in chair bedside, denies any pain or disocmofrot
[2021-02-26 13:37] VITALS: BP_SYST 149
--- NOTE | 2021-02-26 14:13 | NUR ---
nurse note removed patient from tele box and returned to monitor and storage bin tender. removed IV from patient, no signs of bleeding, patient waiting for friend to picker box operator
--- NOTE | 2021-02-26 14:30 | NUR ---
D/C Patient Patient given medication reconciliation form and D/C instructions. Exit Care provided. Patient verbalized understanding. MD discussed with patient the results and treatment provided. Ambulatory with steady gait for discharge to home. Patient in stable condition, ID band removed. Rx given. Patient educated on pain management. All belongings sent with patient. Patient wheeled out to [email or web address] car
--- NOTE | 2021-02-27 09:24 | NUR ---
PHYSICAL THERAPY CO-SIGN The Physical Therapy Progress Notes documented by Special Education Director have been reviewed. Reviewed/Co-Signed by: Divya Rodriguez Documentation Done by: BHAVESH MAJANO PTA Addendum: 02/27/21 at 6780 by Divya Rodriguez PT Amended: Links added.
== END 2021-02-26 14:30 | disposition home health service (06) | DRG 602 ==
LOC: SED 15:28 → STU 18:14 → SMU 02-26 09:22
PROVIDERS: ADMIT Family Medicine; ATTEND Family Medicine
PROC: 5A09357 Assistance with Respiratory Ventilation, Less than 24 Consecutive Hours, Continuous Positive Airway Pressure (ICD-10-PCS; principal; 2021-02-19)
PROC: 5A09357 Assistance with Respiratory Ventilation, Less than 24 Consecutive Hours, Continuous Positive Airway Pressure (ICD-10-PCS; 2021-02-20)
PROC: 5A09357 Assistance with Respiratory Ventilation, Less than 24 Consecutive Hours, Continuous Positive Airway Pressure (ICD-10-PCS; 2021-02-21)
PROC: 5A09457 Assistance with Respiratory Ventilation, 24-96 Consecutive Hours, Continuous Positive Airway Pressure (ICD-10-PCS; 2021-02-22)
PROC: 5A09357 Assistance with Respiratory Ventilation, Less than 24 Consecutive Hours, Continuous Positive Airway Pressure (ICD-10-PCS; 2021-02-25)
PROC: 5A09357 Assistance with Respiratory Ventilation, Less than 24 Consecutive Hours, Continuous Positive Airway Pressure (ICD-10-PCS; 2021-02-26)
DX: L03.311 Cellulitis of abdominal wall (principal); N17.0 Acute kidney failure with tubular necrosis; I50.43 Acute on chronic combined systolic (congestive) and diastolic (congestive) heart failure; J96.21 Acute and chronic respiratory failure with hypoxia; I42.0 Dilated cardiomyopathy; E66.2 Morbid (severe) obesity with alveolar hypoventilation; Z68.44 Body mass index [BMI] 60.0-69.9, adult; L03.116 Cellulitis of left lower limb; L03.115 Cellulitis of right lower limb; I13.0 Hypertensive heart and chronic kidney disease with heart failure and stage 1 through stage 4 chronic kidney disease, or unspecified chronic kidney disease; E11.22 Type 2 diabetes mellitus with diabetic chronic kidney disease; I87.2 Venous insufficiency (chronic) (peripheral); I89.0 Lymphedema, not elsewhere classified; N18.30 Chronic kidney disease, stage 3 unspecified; Z20.822 Contact with and (suspected) exposure to COVID-19; Z88.5 Allergy status to narcotic agent; Z88.8 Allergy status to other drugs, medicaments and biological substances; Z79.1 Long term (current) use of non-steroidal anti-inflammatories (NSAID); Z79.899 Other long term (current) drug therapy; Z79.4 Long term (current) use of insulin; Z87.891 Personal history of nicotine dependence
CPT/HCPCS: 36415; 36600; 71045; 76376; 76700-TC; 80048; 80053; 80202; 81000; 82550; 82728; 82803-TC; 82962; 83605; 83615; 83880; 84484; 85025; 85379; 85384; 85610-TC; 85730-TC; 86140; 87040-TC; 87081; 87086; 93005; 93306; 93971; 94640; 94660; 94760; 96365; 96366; 96367; 96375; 97110-GP; 97116-GP; 97163-GP; 97530-GP; 99285; G0378; J0295; J1650; J1815; J1940; J2405; J2543; J3010; J3370; J3490; J7050; J7612

== ENCOUNTER 2021-03-21 21:24 | Emergency (ER) | payer OTHER, MEDICAID, SELFPAY ==
[~2021-03-21] VITALS: Ht 167.6 cm; Wt 164.2 kg
[~2021-03-21 21:24] MED LIST changes: -CEPH500C2 PO; -CIPR500T5 PO; -CLIN300C12 PO; -IBUP-1970 PO; -LISI20TA30 PO; -MAGN250T10 PO; -OMEP20CA15 PO; -POTA20PA3 PO; -WITC1MED4 TP
[2021-03-21 21:35] VITALS: BP_SYST 179
[2021-03-21 22:18] LABS: BASOPHILS % (AUTO) 0.5 % (0.0-2.0); EOSINOPHILS # (AUTO) 0.2 K/uL (0.0-0.4); EOSINOPHILS % (AUTO) 2.3 % (0.0-4.0); HEMATOCRIT 32.3 % (36-54); HEMOGLOBIN 10.7 g/dL (14.0-18.0); LYMPHOCYTES # (AUTO) 1.4 K/uL (1.0-5.5); LYMPHOCYTES % (AUTO) 14.7 % (20.5-51.5); MEAN CORPUSCULAR HEMOGLOBIN 25 pg (27-31); MEAN CORPUSCULAR HGB CONC 33 % (32-36); MEAN CORPUSCULAR VOLUME 76 fL (79.0-98.0); MONOCYTES # (AUTO) 0.6 K/uL (0.0-1.0); MONOCYTES % (AUTO) 5.9 % (1.7-9.3); NEUTROPHILS # (AUTO) 7.5 K/uL (1.8-7.7); NEUTROPHILS % (AUTO) 76.6 % (40.0-70.0); PLATELET COUNT (AUTO) 163 K/uL (130-430); RED BLOOD CELL COUNT(AUTO) 4.27 MIL/uL (4.2-6.2); WHITE BLOOD COUNT (AUTO) 9.8 K/uL (4.8-10.8)
[2021-03-21 22:45] LABS: CALCIUM 8.9 mg/dL (8.4-11.0); CREATININE 1.8 mg/dL (0.55-1.30); POTASSIUM 4.6 mmol/L (3.5-5.1)
[2021-03-21 23:27] LABS: BILIRUBIN,URINE NEGATIVE (NEGATIVE); BLOOD, URINE 1+ (NEGATIVE); CLARITY/URINE CLEAR (CLEAR); COLOR,URINE YELLOW (YELLOW); GLUCOSE,URINE 3+ (NEGATIVE); KETONES,URINE NEGATIVE (NEGATIVE); LEUKOCYTE ESTERASE ,URINE NEGATIVE (NEGATIVE); NITRITE, URINE NEGATIVE (NEGATIVE); PH,URINE 5.5 (5.0-8.0); PROTEIN URINE 2+ (NEGATIVE); UROBILINOGEN,URINE 0.2 (0.2-1.0)
[2021-03-21 23:30] LABS: BACTERIA,URINE FEW /HPF (None Seen); WBC,URINE 0-3 /HPF (0-3)
[2021-03-22] MEDS: PIPERACILLIN/TAZO 3.375 GM in NS 50 ML IV ONE (01:10)
[2021-03-22] MEDS ORDERED: PIPERACILLIN/TAZOBACTAM 3.375 GM/VIAL (ZOSYN) IV ONE (01:11)
[2021-03-22] MEDS: NACL 0.9% 250 ML IV ONE (01:11)
[2021-03-22] MEDS ORDERED: HYDR-3917 PO (02:57)
[2021-03-22] MEDS ORDERED: CEPH250C PO (02:57)
[2021-03-22 03:12] VITALS: BP_SYST 141
== END 2021-03-22 03:12 | disposition home or self-care (01) ==
LOC: SED 21:24
DX: E11.65 Type 2 diabetes mellitus with hyperglycemia (principal); I11.0 Hypertensive heart disease with heart failure; I50.9 Heart failure, unspecified; J44.9 Chronic obstructive pulmonary disease, unspecified; I25.2 Old myocardial infarction; L03.311 Cellulitis of abdominal wall; Z88.5 Allergy status to narcotic agent; Z79.899 Other long term (current) drug therapy; Z79.4 Long term (current) use of insulin
CPT/HCPCS: 36415; 80048; 81000; 82962; 85025; 96365; 99284; J2543; 96361; J7030

== ENCOUNTER 2021-05-26 06:17 | Inpatient (IN) | payer OTHER, MEDICAID, SELFPAY ==
[~2021-05-26] VITALS: Ht 167.6 cm; Wt 170.6 kg
[2021-05-26] VITALS (7 sets, daily range): BP systolic 140–149
[~2021-05-26 06:17] MED LIST changes: +CEPH250C PO
[2021-05-26] MEDS ORDERED: ASPIRIN 81 MG TAB.CHEW PO ONE (06:30)
[2021-05-26 06:48] LABS: BASOPHILS # (AUTO) 0.1 K/uL (0.0-0.2); BASOPHILS % (AUTO) 0.7 % (0.0-2.0); EOSINOPHILS # (AUTO) 0.1 K/uL (0.0-0.4); EOSINOPHILS % (AUTO) 0.4 % (0.0-4.0); HEMATOCRIT 35.3 % (36-54); HEMOGLOBIN 11.5 g/dL (14.0-18.0); LYMPHOCYTES # (AUTO) 0.5 K/uL (1.0-5.5); LYMPHOCYTES % (AUTO) 3.3 % (20.5-51.5); MEAN CORPUSCULAR HEMOGLOBIN 25 pg (27-31); MEAN CORPUSCULAR HGB CONC 33 % (32-36); MEAN CORPUSCULAR VOLUME 77 fL (79.0-98.0); MONOCYTES # (AUTO) 0.5 K/uL (0.0-1.0); MONOCYTES % (AUTO) 3.3 % (1.7-9.3); NEUTROPHILS % (AUTO) 92.3 % (40.0-70.0); PLATELET COUNT (AUTO) 143 K/uL (130-430); RED BLOOD CELL COUNT(AUTO) 4.61 MIL/uL (4.2-6.2); RED CELL DISTRIBUTION WIDTH 16.9 % (9.0-15.0); WHITE BLOOD COUNT (AUTO) 14.1 K/uL (4.8-10.8)
[2021-05-26] MEDS ORDERED: APIX2.5T PO (06:55)
[2021-05-26] MEDS ORDERED: PRO40 PO (06:55)
[2021-05-26] MEDS ORDERED: MAGN400T10 PO (06:55)
[2021-05-26 08:14] LABS: CREATININE 2.13 mg/dL (0.55-1.30); POTASSIUM 4.7 mmol/L (3.5-5.1)
[2021-05-26 08:20] LABS: ALBUMIN 3.2 g/dL (3.4-4.8); TOTAL BILIRUBIN 0.8 mg/dL (0.0-1.0)
[2021-05-26] MEDS ORDERED: NS 250 ML IV ONE (08:45)
[2021-05-26] MEDS ORDERED: IOHEXOL 350 mgI/mL, 150 ML INFUS..BTL IV ONE ×2 (08:51→10:41)
[2021-05-26] MEDS ORDERED: MUPIROCIN 2% TOPICAL OINTMENT 22 GM NS PRN (13:45)
[2021-05-26] MEDS ORDERED: ONDANSETRON HCL 4 MG/2 ML VIAL IVP PRN (13:45)
[2021-05-26] MEDS ORDERED: MAGNESIUM SULFATE 50 ML IV PRN (13:45)
[2021-05-26] MEDS ORDERED: DEXTROSE 50% JECT 50 ML DISP.SYRIN IVP PRN (13:45)
[2021-05-26] MEDS ORDERED: ACETAMINOPHEN 325 MG TABLET PO PRN (13:45)
[2021-05-26] MEDS ORDERED: ZOLPIDEM TARTRATE 5 MG TABLET PO PRN (13:45)
[2021-05-26] MEDS ORDERED: POTASSIUM CHLORIDE 20 MEQ TAB.PRT.SR PO PRN (13:45)
[2021-05-26] MEDS ORDERED: LORazepam 2 MG/ML VIAL IVP PRN (13:45)
[2021-05-26] MEDS ORDERED: DOCUSATE SODIUM 100 MG CAPSULE PO PRN (13:45)
[2021-05-26] MEDS: GABAPENTIN 300 MG CAPSULE PO SCH ×2 (16:35→20:55)
[2021-05-26] MEDS: INSULIN LISPRO SLIDING SCALE 100 UNITS/ML VIAL (humaLOG) SUBCUT PRN ×2 (16:40→21:24)
[2021-05-26] MEDS: IPRATROPIUM BROM 0.5 MG/2.5 ML VIAL.NEB (ATROVENT) INH SCH (20:05)
[2021-05-26] MEDS: SPIRONOLACTONE 50 MG TABLET (ALDACTONE) PO SCH (20:54)
[2021-05-26] MEDS: CARVEDILOL 25 MG TABLET (COREG) PO SCH (20:55)
[2021-05-26] MEDS: HEPARIN SODIUM,PORCINE 5,000 UNITS/ML VIAL SUBCUT SCH (20:58)
[2021-05-26] MEDS ORDERED: FUROSEMIDE 40 MG TABLET PO SCH (21:00)
[2021-05-26] MEDS: FUROSEMIDE 40 MG/4 ML VIAL IVP SCH (21:00)
[2021-05-26] MEDS: INSULIN GLARGINE 100 UNITS/ML 10 ML VIAL SQ SCH (21:23)
[2021-05-27 00:10] VITALS: BP_SYST 146
[2021-05-27] MEDS: INSULIN LISPRO SLIDING SCALE 100 UNITS/ML VIAL (humaLOG) SUBCUT PRN ×4 (06:11→22:50)
[2021-05-27 06:56] LABS: BASOPHILS % (AUTO) 0.5 % (0.0-2.0); EOSINOPHILS # (AUTO) 0.1 K/uL (0.0-0.4); EOSINOPHILS % (AUTO) 1.4 % (0.0-4.0); HEMATOCRIT 32.3 % (36-54); HEMOGLOBIN 10.7 g/dL (14.0-18.0); LYMPHOCYTES # (AUTO) 1.1 K/uL (1.0-5.5); MEAN CORPUSCULAR HEMOGLOBIN 25 pg (27-31); MEAN CORPUSCULAR HGB CONC 33 % (32-36); MEAN CORPUSCULAR VOLUME 76 fL (79.0-98.0); MONOCYTES % (AUTO) 9.6 % (1.7-9.3); NEUTROPHILS # (AUTO) 7.8 K/uL (1.8-7.7); NEUTROPHILS % (AUTO) 77.5 % (40.0-70.0); PLATELET COUNT (AUTO) 120 K/uL (130-430); RED BLOOD CELL COUNT(AUTO) 4.24 MIL/uL (4.2-6.2); RED CELL DISTRIBUTION WIDTH 17.2 % (9.0-15.0); WHITE BLOOD COUNT (AUTO) 10.1 K/uL (4.8-10.8)
[2021-05-27] MEDS: IPRATROPIUM BROM 0.5 MG/2.5 ML VIAL.NEB (ATROVENT) INH SCH ×2 (07:09→20:10)
[2021-05-27 08:00] VITALS: BP_SYST 90
[2021-05-27] MEDS: CITALOPRAM HYDROBROMIDE 20 MG TABLET PO SCH (08:53)
[2021-05-27] MEDS: ASPIRIN 81 MG TAB.CHEW PO SCH (08:53)
[2021-05-27] MEDS: GABAPENTIN 300 MG CAPSULE PO SCH ×3 (08:53→22:40)
[2021-05-27] MEDS: ARIPiprazole 5 MG TAB PO SCH (08:53)
[2021-05-27] MEDS: HEPARIN SODIUM,PORCINE 5,000 UNITS/ML VIAL SUBCUT SCH ×2 (08:54→22:42)
[2021-05-27] MEDS: INSULIN GLARGINE 100 UNITS/ML 10 ML VIAL SQ SCH ×2 (08:58→22:52)
[2021-05-27] MEDS: FUROSEMIDE 40 MG/4 ML VIAL IVP SCH ×2 (08:59→22:44)
[2021-05-27] MEDS: SPIRONOLACTONE 50 MG TABLET (ALDACTONE) PO SCH ×2 (09:00→22:42)
[2021-05-27] MEDS: CARVEDILOL 25 MG TABLET (COREG) PO SCH ×2 (09:00→22:43)
[2021-05-27 10:46] LABS: BILIRUBIN,URINE NEGATIVE (NEGATIVE); BLOOD, URINE 1+ (NEGATIVE); CLARITY/URINE CLEAR (CLEAR); COLOR,URINE YELLOW (YELLOW); GLUCOSE,URINE 1+ (NEGATIVE); KETONES,URINE NEGATIVE (NEGATIVE); LEUKOCYTE ESTERASE ,URINE NEGATIVE (NEGATIVE); NITRITE, URINE NEGATIVE (NEGATIVE); PROTEIN URINE 2+ (NEGATIVE); UROBILINOGEN,URINE 0.2 (0.2-1.0)
[2021-05-27 10:56] LABS: ANION GAP 8 (5-15); CALCIUM 8.6 mg/dL (8.4-11.0); CHLORIDE 94 mmol/L (98-107); CREATININE 2.08 mg/dL (0.55-1.30); GLUCOSE 344 mg/dL (70-99); POTASSIUM 4.1 mmol/L (3.5-5.1); SODIUM SERUM 131 mmol/L (136-145); UREA NITROGEN, BLOOD 35 mg/dL (8-21)
[2021-05-27 11:08] LABS: GFR AFRICAN AMERICAN 43 mL/min (>90)
[2021-05-27 11:25] LABS: BARBITURATE, URINE NEGATIVE (NEG <=200); BENZODIAZEPINE, URINE NEGATIVE (NEG <=150); CANNABINOID, URINE NEGATIVE (NEG <=50); COCAINE, URINE NEGATIVE (NEG <=150); METHAMPHETAMINES SCREEN,URINE NEGATIVE (NEG <=500); OPIATE, URINE NEGATIVE (NEG <=100); PHENCYCLIDINE SCREEN,URINE NEGATIVE (NEG <=25); UR TRICYCLIC ANTIDEPRESSANTS NEGATIVE (NEG <=300); URINE AMPHETAMINE NEGATIVE (NEG <=500); URINE METHADONE NEGATIVE (NEG <=200); URINE OXYCODONE SCREEN NEGATIVE (NEG <=100); URINE PROPOXYPHENE SCREEN NEGATIVE (NEG <=300)
[2021-05-27 12:00] VITALS: BP_SYST 116
[2021-05-27 12:19] LABS: WBC,URINE 0-3 /HPF (0-3)
[2021-05-27 12:20] LABS: BACTERIA,URINE RARE /HPF (None Seen); MUCUS,URINE 1+ /LPF (None Seen)
[2021-05-27 16:00] VITALS: BP_SYST 127
[2021-05-27] MEDS: INSULIN NPH/REGULAR 70-30, 100 UNITS/ML, 10 ML VIAL SUBCUT SCH (16:34)
[2021-05-27 20:00] VITALS: BP_SYST 153
[2021-05-28] VITALS: BP_SYST 158
[2021-05-28 05:41] LABS: BASOPHILS # (AUTO) 0.1 K/uL (0.0-0.2); BASOPHILS % (AUTO) 0.5 % (0.0-2.0); EOSINOPHILS # (AUTO) 0.3 K/uL (0.0-0.4); HEMATOCRIT 29.2 % (36-54); HEMOGLOBIN 9.6 g/dL (14.0-18.0); LYMPHOCYTES # (AUTO) 1.6 K/uL (1.0-5.5); LYMPHOCYTES % (AUTO) 15.2 % (20.5-51.5); MEAN CORPUSCULAR HEMOGLOBIN 25 pg (27-31); MEAN CORPUSCULAR HGB CONC 33 % (32-36); MEAN CORPUSCULAR VOLUME 76 fL (79.0-98.0); MONOCYTES # (AUTO) 0.8 K/uL (0.0-1.0); MONOCYTES % (AUTO) 7.6 % (1.7-9.3); NEUTROPHILS # (AUTO) 7.6 K/uL (1.8-7.7); NEUTROPHILS % (AUTO) 73.7 % (40.0-70.0); PLATELET COUNT (AUTO) 137 K/uL (130-430); RED BLOOD CELL COUNT(AUTO) 3.85 MIL/uL (4.2-6.2); RED CELL DISTRIBUTION WIDTH 17.2 % (9.0-15.0); WHITE BLOOD COUNT (AUTO) 10.3 K/uL (4.8-10.8)
[2021-05-28] MEDS: INSULIN LISPRO SLIDING SCALE 100 UNITS/ML VIAL (humaLOG) SUBCUT PRN (06:23)
[2021-05-28] MEDS: INSULIN NPH/REGULAR 70-30, 100 UNITS/ML, 10 ML VIAL SUBCUT SCH (06:27)
[2021-05-28 06:53] LABS: ALBUMIN 2.9 g/dL (3.4-4.8); CALCIUM 8.9 mg/dL (8.4-11.0); CREATININE 2.22 mg/dL (0.55-1.30); POTASSIUM 3.9 mmol/L (3.5-5.1); TOTAL BILIRUBIN 0.4 mg/dL (0.0-1.0)
[2021-05-28] MEDS: IPRATROPIUM BROM 0.5 MG/2.5 ML VIAL.NEB (ATROVENT) INH SCH (08:00)
[2021-05-28 08:02] VITALS: BP_SYST 157
[2021-05-28] MEDS: ARIPiprazole 5 MG TAB PO SCH (08:13)
[2021-05-28] MEDS: SPIRONOLACTONE 50 MG TABLET (ALDACTONE) PO SCH (08:13)
[2021-05-28] MEDS: CARVEDILOL 25 MG TABLET (COREG) PO SCH (08:13)
[2021-05-28] MEDS: CITALOPRAM HYDROBROMIDE 20 MG TABLET PO SCH (08:14)
[2021-05-28] MEDS: ASPIRIN 81 MG TAB.CHEW PO SCH (08:14)
[2021-05-28] MEDS: GABAPENTIN 300 MG CAPSULE PO SCH (08:14)
[2021-05-28] MEDS: HEPARIN SODIUM,PORCINE 5,000 UNITS/ML VIAL SUBCUT SCH (08:15)
[2021-05-28] MEDS: FUROSEMIDE 40 MG/4 ML VIAL IVP SCH (08:16)
[2021-05-28] MEDS: INSULIN GLARGINE 100 UNITS/ML 10 ML VIAL SQ SCH (08:19)
[2021-05-28 09:50] VITALS: BP_SYST 157
== END 2021-05-28 11:00 | disposition home or self-care (01) | DRG 291 ==
LOC: SED 06:17 → STU 09:19
PROVIDERS: ADMIT General Practice; ATTEND General Practice
PROC: 5A09357 Assistance with Respiratory Ventilation, Less than 24 Consecutive Hours, Continuous Positive Airway Pressure (ICD-10-PCS; principal; 2021-05-26)
PROC: 5A09357 Assistance with Respiratory Ventilation, Less than 24 Consecutive Hours, Continuous Positive Airway Pressure (ICD-10-PCS; 2021-05-28)
DX: I13.0 Hypertensive heart and chronic kidney disease with heart failure and stage 1 through stage 4 chronic kidney disease, or unspecified chronic kidney disease (principal); I50.43 Acute on chronic combined systolic (congestive) and diastolic (congestive) heart failure; J96.20 Acute and chronic respiratory failure, unspecified whether with hypoxia or hypercapnia; N17.0 Acute kidney failure with tubular necrosis; E87.1 Hypo-osmolality and hyponatremia; E66.2 Morbid (severe) obesity with alveolar hypoventilation; D68.59 Other primary thrombophilia; Z68.44 Body mass index [BMI] 60.0-69.9, adult; I42.0 Dilated cardiomyopathy; J45.909 Unspecified asthma, uncomplicated; Z20.822 Contact with and (suspected) exposure to COVID-19; N18.9 Chronic kidney disease, unspecified; E11.22 Type 2 diabetes mellitus with diabetic chronic kidney disease; F32.9 Major depressive disorder, single episode, unspecified; F17.200 Nicotine dependence, unspecified, uncomplicated; F03.90 Unspecified dementia, unspecified severity, without behavioral disturbance, psychotic disturbance, mood disturbance, and anxiety; E11.65 Type 2 diabetes mellitus with hyperglycemia; J44.9 Chronic obstructive pulmonary disease, unspecified; K21.9 Gastro-esophageal reflux disease without esophagitis; Z88.5 Allergy status to narcotic agent; Z88.8 Allergy status to other drugs, medicaments and biological substances; Z79.899 Other long term (current) drug therapy; I25.2 Old myocardial infarction; Z95.810 Presence of automatic (implantable) cardiac defibrillator; Z79.4 Long term (current) use of insulin; Z86.73 Personal history of transient ischemic attack (TIA), and cerebral infarction without residual deficits
CPT/HCPCS: 36415; 71045; 71275; 76376; 80048; 80053; 80307; 81000; 82962; 83036; 83735; 83880; 84484; 85025; 85379; 93005; 93970; 94640; 94660; 94760; 99291; G0378; J1644; J1815; J1940; Q9967

== ENCOUNTER 2021-08-19 08:47 | Inpatient (IN) | payer OTHER, SELFPAY ==
[~2021-08-19] VITALS: Ht 167.6 cm; Wt 163.3 kg
[~2021-08-19 08:47] MED LIST changes: +APIX2.5T PO; -FURO40TA5 PO; +MAGN400T10 PO; +PRO40 PO
[2021-08-19 08:55] VITALS: BP_SYST 93
[2021-08-19] MEDS ORDERED: NACL 0.9% 2,000 ML IV ONE (09:15)
[2021-08-19 09:47] LABS: BASOPHILS # (AUTO) 0.1 K/uL (0.0-0.2); BASOPHILS % (AUTO) 0.5 % (0.0-2.0); EOSINOPHILS # (AUTO) 0.1 K/uL (0.0-0.4); EOSINOPHILS % (AUTO) 0.8 % (0.0-4.0); HEMATOCRIT 36.9 % (36-54); HEMOGLOBIN 12.3 g/dL (14.0-18.0); MEAN CORPUSCULAR HEMOGLOBIN 25 pg (27-31); MEAN CORPUSCULAR HGB CONC 33 % (32-36); MEAN CORPUSCULAR VOLUME 76 fL (79.0-98.0); MONOCYTES % (AUTO) 5.2 % (1.7-9.3); NEUTROPHILS # (AUTO) 16.9 K/uL (1.8-7.7); NEUTROPHILS % (AUTO) 88.5 % (40.0-70.0); PLATELET COUNT (AUTO) 151 K/uL (130-430); RED BLOOD CELL COUNT(AUTO) 4.84 MIL/uL (4.2-6.2); RED CELL DISTRIBUTION WIDTH 16.5 % (9.0-15.0); WHITE BLOOD COUNT (AUTO) 19.1 K/uL (4.8-10.8)
[2021-08-19 09:57] LABS: CALCIUM 8.5 mg/dL (8.4-11.0); CREATININE 2.2 mg/dL (0.55-1.30); POTASSIUM 4.3 mmol/L (3.5-5.1)
[2021-08-19 10:04] LABS: ALBUMIN 3.1 g/dL (3.4-4.8); TOTAL BILIRUBIN 0.9 mg/dL (0.0-1.0)
[2021-08-19] MEDS ORDERED: NS 500 ML IV ONE (11:15)
[2021-08-19] MEDS ORDERED: PIPERACILLIN/TAZO 3.375 GM in NS 50 ML IV ONE (11:15)
[2021-08-19] MEDS ORDERED: VANCOMYCIN HCL 1,000 MG in NS 250 ML IV ONE (11:15)
[2021-08-19] MEDS ORDERED: PIPERACILLIN/TAZOBACTAM 3.375 GM/VIAL (ZOSYN) IV ONE (11:25)
[2021-08-19] MEDS ORDERED: NACL 0.9% 1,000 ML IV SCH (11:45)
[2021-08-19] MEDS ORDERED: ACETAMINOPHEN 325 MG TABLET ONE (11:49)
[2021-08-19] MEDS: ACETAMINOPHEN 325 MG TABLET PO PRN (11:55)
[2021-08-19] MEDS ORDERED: VANCOMYCIN HCL 1000 MG/VIAL IV ONE (11:57)
[2021-08-19] MEDS ORDERED: ACETAMINOPHEN 325 MG TABLET PO PRN (12:00)
[2021-08-19 13:06] VITALS: BP_SYST 98
[2021-08-19] MEDS ORDERED: ACETAMINOPHEN/CODEINE 300 MG-30 MG TABLET PO PRN (13:45)
[2021-08-19] MEDS ORDERED: LevALBUTEROL HCL 1.25 MG/0.5 ML *CONC.* VIAL.NEB (XOPENEX CONC.) INH PRN (13:45)
[2021-08-19] MEDS ORDERED: NALOXONE HCL 0.4 MG/ML AMP (NARCAN) IVP PRN ×2 (13:45)
[2021-08-19] MEDS: NACL 0.9% 1,000 ML IV SCH (13:45)
[2021-08-19] MEDS ORDERED: CLIN60GE TP (14:45)
[2021-08-19] MEDS ORDERED: nystop TP (14:45)
[2021-08-19] MEDS ORDERED: ERGO1250 PO (14:45)
[2021-08-19] MEDS ORDERED: FURO40SO5 PO (14:45)
[2021-08-19] MEDS ORDERED: INSU100V9 SQ (14:47)
[2021-08-19] MEDS ORDERED: [UNRECOGNIZED DRUG - OTHER] SQ (14:59)
[2021-08-19] MEDS: IPRATROPIUM BROM 0.5 MG/2.5 ML VIAL.NEB (ATROVENT) INH SCH ×2 (15:00→23:26)
[2021-08-19] MEDS ORDERED: DULA1.5P SQ (15:01)
[2021-08-19] MEDS: GABAPENTIN 300 MG CAPSULE PO SCH ×2 (15:44→20:05)
[2021-08-19] MEDS: HYDROcodone/ACETAMIN 5-325 MG TAB (NORCO/ VICODIN) PO PRN (15:45)
[2021-08-19 16:00] VITALS: BP_SYST 118
[2021-08-19 17:02] VITALS: BP_SYST 98
[2021-08-19] MEDS: INSULIN REGULAR, HUMAN 100 UNITS/ML, 10 ML VIAL (humuLIN R) SUBCUT PRN (17:19)
[2021-08-19] MEDS: CEFEPIME 1 GM in D5W 50 ML IV SCH (19:56)
[2021-08-19 20:00] VITALS: BP_SYST 161
[2021-08-19] MEDS: SIMVASTATIN 20 MG TABLET PO SCH (20:05)
[2021-08-19] MEDS: APIXABAN 2.5 MG TABLET PO SCH (20:07)
[2021-08-19] MEDS: INSULIN GLARGINE 100 UNITS/ML 10 ML VIAL SUBCUT SCH (20:23)
[2021-08-19] MEDS ORDERED: IPRATROPIUM BROMIDE 17 mCg/ACTUATION, 12.9 GM AER.W.ADAP INH SCH (21:00)
[2021-08-19] MEDS: LevALBUTEROL HCL 1.25 MG/0.5 ML *CONC.* VIAL.NEB (XOPENEX CONC.) INH SCH (23:26)
[2021-08-20] VITALS (7 sets, daily range): BP systolic 109–208
[2021-08-20] MEDS: LevALBUTEROL HCL 1.25 MG/0.5 ML *CONC.* VIAL.NEB (XOPENEX CONC.) INH SCH ×4 (01:00→19:56)
[2021-08-20] MEDS: NACL 0.9% 1,000 ML IV SCH ×2 (03:05→15:00)
[2021-08-20] MEDS ORDERED: cloNIDine HCL 0.1 MG TABLET PO PRN (04:30)
[2021-08-20] MEDS ORDERED: cloNIDine HCL 0.1 MG TABLET ONE (04:34)
[2021-08-20] MEDS ORDERED: hydrALAZINE HCL 20 MG/ML VIAL IVP ONE (05:00)
[2021-08-20] MEDS ORDERED: CARVEDILOL 25 MG TABLET (COREG) PO ONE (05:00)
[2021-08-20] MEDS ORDERED: hydrALAZINE HCL 20 MG/ML VIAL ONE (05:04)
[2021-08-20] MEDS ORDERED: CARVEDILOL 25 MG TABLET (COREG) ONE (05:05)
[2021-08-20] MEDS: CARVEDILOL 25 MG TABLET (COREG) PO SCH ×3 (05:09→21:53)
[2021-08-20] MEDS: IPRATROPIUM BROM 0.5 MG/2.5 ML VIAL.NEB (ATROVENT) INH SCH ×4 (07:00→19:56)
[2021-08-20] MEDS: INSULIN REGULAR, HUMAN 100 UNITS/ML, 10 ML VIAL (humuLIN R) SUBCUT PRN ×4 (07:03→21:52)
[2021-08-20 07:51] LABS: BASOPHILS # (AUTO) 0.1 K/uL (0.0-0.2); BASOPHILS % (AUTO) 0.3 % (0.0-2.0); EOSINOPHILS # (AUTO) 0.1 K/uL (0.0-0.4); EOSINOPHILS % (AUTO) 0.7 % (0.0-4.0); HEMOGLOBIN 12.2 g/dL (14.0-18.0); LYMPHOCYTES # (AUTO) 0.6 K/uL (1.0-5.5); LYMPHOCYTES % (AUTO) 3.3 % (20.5-51.5); MEAN CORPUSCULAR HEMOGLOBIN 26 pg (27-31); MEAN CORPUSCULAR HGB CONC 33 % (32-36); MEAN CORPUSCULAR VOLUME 78 fL (79.0-98.0); MONOCYTES # (AUTO) 0.5 K/uL (0.0-1.0); MONOCYTES % (AUTO) 2.8 % (1.7-9.3); NEUTROPHILS # (AUTO) 17.1 K/uL (1.8-7.7); NEUTROPHILS % (AUTO) 92.9 % (40.0-70.0); PLATELET COUNT (AUTO) 146 K/uL (130-430); RED BLOOD CELL COUNT(AUTO) 4.76 MIL/uL (4.2-6.2); RED CELL DISTRIBUTION WIDTH 16.5 % (9.0-15.0); WHITE BLOOD COUNT (AUTO) 18.3 K/uL (4.8-10.8)
[2021-08-20 08:14] LABS: CALCIUM 8.5 mg/dL (8.4-11.0); CREATININE 1.93 mg/dL (0.55-1.30); POTASSIUM 5.1 mmol/L (3.5-5.1)
[2021-08-20] MEDS: OMEGA-3/DHA/EPA/FISH OIL 1 GM CAPSULE PO SCH (08:37)
[2021-08-20] MEDS: GABAPENTIN 300 MG CAPSULE PO SCH ×3 (08:38→21:49)
[2021-08-20] MEDS: ARIPiprazole 5 MG TAB PO SCH (08:38)
[2021-08-20] MEDS: PANTOPRAZOLE SODIUM 40 MG TAB PO SCH (08:39)
[2021-08-20] MEDS: MAGNESIUM OXIDE 400 MG TABLET PO SCH (08:39)
[2021-08-20] MEDS: CITALOPRAM HYDROBROMIDE 20 MG TABLET PO SCH (08:39)
[2021-08-20] MEDS: POLYETHYLENE GLYCOL 3350, 17 GM/ POWD.PACK PO SCH (08:40)
[2021-08-20] MEDS: APIXABAN 2.5 MG TABLET PO SCH ×2 (08:40→21:50)
[2021-08-20] MEDS: ASPIRIN 81 MG TAB.CHEW PO SCH (08:40)
[2021-08-20] MEDS: CEFEPIME 1 GM in D5W 50 ML IV SCH ×2 (08:42→21:49)
[2021-08-20] MEDS ORDERED: CARVEDILOL 25 MG TABLET (COREG) PO SCH (09:00)
[2021-08-20] MEDS: INSULIN GLARGINE 100 UNITS/ML 10 ML VIAL SUBCUT SCH ×2 (09:03→21:51)
[2021-08-20] MEDS: SIMVASTATIN 20 MG TABLET PO SCH (21:49)
[2021-08-20] MEDS: HYDROcodone/ACETAMIN 5-325 MG TAB (NORCO/ VICODIN) PO PRN (22:58)
[2021-08-21] VITALS: BP_SYST 116
[2021-08-21] MEDS: LevALBUTEROL HCL 1.25 MG/0.5 ML *CONC.* VIAL.NEB (XOPENEX CONC.) INH SCH ×4 (01:00→21:52)
[2021-08-21] MEDS: NACL 0.9% 1,000 ML IV SCH (06:16)
[2021-08-21] MEDS: INSULIN REGULAR, HUMAN 100 UNITS/ML, 10 ML VIAL (humuLIN R) SUBCUT PRN ×3 (06:18→21:14)
[2021-08-21 08:15] VITALS: BP_SYST 128
[2021-08-21] MEDS: IPRATROPIUM BROM 0.5 MG/2.5 ML VIAL.NEB (ATROVENT) INH SCH ×4 (08:57→21:52)
[2021-08-21] MEDS: CEFEPIME 1 GM in D5W 50 ML IV SCH ×2 (09:53→20:57)
[2021-08-21] MEDS: GABAPENTIN 300 MG CAPSULE PO SCH ×3 (09:54→20:57)
[2021-08-21] MEDS: ASPIRIN 81 MG TAB.CHEW PO SCH (09:56)
[2021-08-21] MEDS: ARIPiprazole 5 MG TAB PO SCH (09:56)
[2021-08-21] MEDS: MAGNESIUM OXIDE 400 MG TABLET PO SCH (09:56)
[2021-08-21] MEDS: CARVEDILOL 25 MG TABLET (COREG) PO SCH ×2 (09:56→20:58)
[2021-08-21] MEDS: PANTOPRAZOLE SODIUM 40 MG TAB PO SCH (09:56)
[2021-08-21] MEDS: OMEGA-3/DHA/EPA/FISH OIL 1 GM CAPSULE PO SCH (09:57)
[2021-08-21] MEDS: CITALOPRAM HYDROBROMIDE 20 MG TABLET PO SCH (09:57)
[2021-08-21] MEDS: POLYETHYLENE GLYCOL 3350, 17 GM/ POWD.PACK PO SCH (09:57)
[2021-08-21] MEDS: APIXABAN 2.5 MG TABLET PO SCH ×2 (10:01→20:56)
[2021-08-21] MEDS: INSULIN GLARGINE 100 UNITS/ML 10 ML VIAL SUBCUT SCH ×2 (10:02→21:09)
[2021-08-21 12:00] VITALS: BP_SYST 137
[2021-08-21 16:15] VITALS: BP_SYST 148
[2021-08-21 20:20] VITALS: BP_SYST 145
[2021-08-21] MEDS: SIMVASTATIN 20 MG TABLET PO SCH (20:56)
[2021-08-22] VITALS: BP_SYST 131
[2021-08-22] MEDS: LevALBUTEROL HCL 1.25 MG/0.5 ML *CONC.* VIAL.NEB (XOPENEX CONC.) INH SCH ×4 (03:15→19:00)
[2021-08-22] MEDS: INSULIN REGULAR, HUMAN 100 UNITS/ML, 10 ML VIAL (humuLIN R) SUBCUT PRN ×3 (05:55→17:16)
[2021-08-22 08:03] VITALS: BP_SYST 125
[2021-08-22] MEDS: IPRATROPIUM BROM 0.5 MG/2.5 ML VIAL.NEB (ATROVENT) INH SCH ×4 (08:37→19:00)
[2021-08-22] MEDS: GABAPENTIN 300 MG CAPSULE PO SCH ×3 (09:09→22:17)
[2021-08-22] MEDS: OMEGA-3/DHA/EPA/FISH OIL 1 GM CAPSULE PO SCH (09:09)
[2021-08-22] MEDS: PANTOPRAZOLE SODIUM 40 MG TAB PO SCH (09:10)
[2021-08-22] MEDS: ASPIRIN 81 MG TAB.CHEW PO SCH (09:10)
[2021-08-22] MEDS: CARVEDILOL 25 MG TABLET (COREG) PO SCH ×2 (09:10→22:16)
[2021-08-22] MEDS: CITALOPRAM HYDROBROMIDE 20 MG TABLET PO SCH (09:10)
[2021-08-22] MEDS: CEFEPIME 1 GM in D5W 50 ML IV SCH ×2 (09:11→22:15)
[2021-08-22] MEDS: POLYETHYLENE GLYCOL 3350, 17 GM/ POWD.PACK PO SCH (09:11)
[2021-08-22] MEDS: MAGNESIUM OXIDE 400 MG TABLET PO SCH (09:11)
[2021-08-22] MEDS: HYDROcodone/ACETAMIN 5-325 MG TAB (NORCO/ VICODIN) PO PRN ×3 (09:12→22:30)
[2021-08-22] MEDS: APIXABAN 2.5 MG TABLET PO SCH ×2 (09:13→22:24)
[2021-08-22] MEDS: INSULIN GLARGINE 100 UNITS/ML 10 ML VIAL SUBCUT SCH (09:15)
[2021-08-22] MEDS: NACL 0.9% 1,000 ML IV SCH ×2 (09:39→09:53)
[2021-08-22] MEDS: ARIPiprazole 5 MG TAB PO SCH (09:39)
[2021-08-22 11:10] VITALS: BP_SYST 125
[2021-08-22 15:29] VITALS: BP_SYST 143
[2021-08-22] MEDS: ACETAMINOPHEN 325 MG TABLET PO PRN (17:20)
[2021-08-22 20:01] VITALS: BP_SYST 139
[2021-08-22] MEDS: SIMVASTATIN 20 MG TABLET PO SCH (22:17)
[2021-08-23] MEDS: NACL 0.9% 1,000 ML IV SCH ×2 (00:25→11:05)
[2021-08-23] MEDS: INSULIN GLARGINE 100 UNITS/ML 10 ML VIAL SUBCUT SCH ×3 (00:28→21:00)
[2021-08-23] MEDS: INSULIN REGULAR, HUMAN 100 UNITS/ML, 10 ML VIAL (humuLIN R) SUBCUT PRN ×3 (00:29→17:47)
[2021-08-23] MEDS: LevALBUTEROL HCL 1.25 MG/0.5 ML *CONC.* VIAL.NEB (XOPENEX CONC.) INH SCH ×3 (05:47→14:09)
[2021-08-23] MEDS: IPRATROPIUM BROM 0.5 MG/2.5 ML VIAL.NEB (ATROVENT) INH SCH ×3 (07:00→14:13)
[2021-08-23 07:44] LABS: BASOPHILS # (AUTO) 0.1 K/uL (0.0-0.2); EOSINOPHILS # (AUTO) 0.3 K/uL (0.0-0.4); EOSINOPHILS % (AUTO) 3.8 % (0.0-4.0); HEMATOCRIT 32.6 % (36-54); HEMOGLOBIN 10.9 g/dL (14.0-18.0); LYMPHOCYTES # (AUTO) 1.5 K/uL (1.0-5.5); LYMPHOCYTES % (AUTO) 19.1 % (20.5-51.5); MEAN CORPUSCULAR HEMOGLOBIN 26 pg (27-31); MEAN CORPUSCULAR HGB CONC 33 % (32-36); MEAN CORPUSCULAR VOLUME 78 fL (79.0-98.0); MONOCYTES # (AUTO) 0.4 K/uL (0.0-1.0); MONOCYTES % (AUTO) 5.4 % (1.7-9.3); NEUTROPHILS # (AUTO) 5.6 K/uL (1.8-7.7); NEUTROPHILS % (AUTO) 70.7 % (40.0-70.0); PLATELET COUNT (AUTO) 150 K/uL (130-430); RED BLOOD CELL COUNT(AUTO) 4.21 MIL/uL (4.2-6.2); RED CELL DISTRIBUTION WIDTH 16.7 % (9.0-15.0); WHITE BLOOD COUNT (AUTO) 7.9 K/uL (4.8-10.8)
[2021-08-23 08:00] VITALS: BP_SYST 152
[2021-08-23 08:21] LABS: CALCIUM 8.8 mg/dL (8.4-11.0); CREATININE 1.27 mg/dL (0.55-1.30); POTASSIUM 4.4 mmol/L (3.5-5.1)
[2021-08-23] MEDS: CEFEPIME 1 GM in D5W 50 ML IV SCH ×2 (09:02→21:00)
[2021-08-23] MEDS: ARIPiprazole 5 MG TAB PO SCH (09:03)
[2021-08-23] MEDS: ASPIRIN 81 MG TAB.CHEW PO SCH (09:04)
[2021-08-23] MEDS: CARVEDILOL 25 MG TABLET (COREG) PO SCH ×2 (09:04→21:00)
[2021-08-23] MEDS: PANTOPRAZOLE SODIUM 40 MG TAB PO SCH (09:04)
[2021-08-23] MEDS: MAGNESIUM OXIDE 400 MG TABLET PO SCH (09:05)
[2021-08-23] MEDS: CITALOPRAM HYDROBROMIDE 20 MG TABLET PO SCH (09:05)
[2021-08-23] MEDS: POLYETHYLENE GLYCOL 3350, 17 GM/ POWD.PACK PO SCH (09:05)
[2021-08-23] MEDS: GABAPENTIN 300 MG CAPSULE PO SCH ×3 (09:05→20:59)
[2021-08-23] MEDS: OMEGA-3/DHA/EPA/FISH OIL 1 GM CAPSULE PO SCH (09:05)
[2021-08-23] MEDS: APIXABAN 2.5 MG TABLET PO SCH ×2 (09:09→21:01)
[2021-08-23 12:00] VITALS: BP_SYST 142
[2021-08-23 16:36] VITALS: BP_SYST 140
[2021-08-23] MEDS: SIMVASTATIN 20 MG TABLET PO SCH (20:59)
[2021-08-23] MEDS: HYDROcodone/ACETAMIN 5-325 MG TAB (NORCO/ VICODIN) PO PRN (23:31)
[2021-08-24] MEDS: IPRATROPIUM BROM 0.5 MG/2.5 ML VIAL.NEB (ATROVENT) INH SCH ×5 (00:21→19:00)
[2021-08-24] MEDS: LevALBUTEROL HCL 1.25 MG/0.5 ML *CONC.* VIAL.NEB (XOPENEX CONC.) INH SCH ×5 (00:21→19:00)
[2021-08-24] MEDS: NACL 0.9% 1,000 ML IV SCH ×2 (00:25→16:41)
[2021-08-24 08:00] VITALS: BP_SYST 146
[2021-08-24] MEDS: POLYETHYLENE GLYCOL 3350, 17 GM/ POWD.PACK PO SCH (09:00)
[2021-08-24] MEDS: INSULIN GLARGINE 100 UNITS/ML 10 ML VIAL SUBCUT SCH ×2 (09:00→20:56)
[2021-08-24] MEDS: CEFEPIME 1 GM in D5W 50 ML IV SCH ×2 (09:00→21:20)
[2021-08-24] MEDS: ARIPiprazole 5 MG TAB PO SCH (09:00)
[2021-08-24] MEDS: OMEGA-3/DHA/EPA/FISH OIL 1 GM CAPSULE PO SCH (10:36)
[2021-08-24] MEDS: CARVEDILOL 25 MG TABLET (COREG) PO SCH ×2 (10:37→20:28)
[2021-08-24] MEDS: CITALOPRAM HYDROBROMIDE 20 MG TABLET PO SCH (10:37)
[2021-08-24] MEDS: MAGNESIUM OXIDE 400 MG TABLET PO SCH (10:38)
[2021-08-24] MEDS: ASPIRIN 81 MG TAB.CHEW PO SCH (10:40)
[2021-08-24] MEDS: PANTOPRAZOLE SODIUM 40 MG TAB PO SCH (10:40)
[2021-08-24] MEDS: APIXABAN 2.5 MG TABLET PO SCH ×2 (10:42→20:29)
[2021-08-24] MEDS: GABAPENTIN 300 MG CAPSULE PO SCH ×3 (10:47→20:26)
[2021-08-24 12:00] VITALS: BP_SYST 146; BP_SYST 152
[2021-08-24] MEDS: INSULIN REGULAR, HUMAN 100 UNITS/ML, 10 ML VIAL (humuLIN R) SUBCUT PRN ×3 (13:15→20:58)
[2021-08-24 16:00] VITALS: BP_SYST 143
[2021-08-24 20:00] VITALS: BP_SYST 127
[2021-08-24] MEDS: SIMVASTATIN 20 MG TABLET PO SCH (20:26)
[2021-08-24] MEDS: HYDROcodone/ACETAMIN 5-325 MG TAB (NORCO/ VICODIN) PO PRN (20:27)
[2021-08-25] VITALS (7 sets, daily range): BP systolic 129–174
[2021-08-25] MEDS: LevALBUTEROL HCL 1.25 MG/0.5 ML *CONC.* VIAL.NEB (XOPENEX CONC.) INH SCH ×4 (01:00→20:56)
[2021-08-25] MEDS: NACL 0.9% 1,000 ML IV SCH ×2 (03:05→16:25)
[2021-08-25] MEDS: IPRATROPIUM BROM 0.5 MG/2.5 ML VIAL.NEB (ATROVENT) INH SCH ×4 (07:33→20:55)
[2021-08-25] MEDS: INSULIN GLARGINE 100 UNITS/ML 10 ML VIAL SUBCUT SCH ×2 (09:00→22:55)
[2021-08-25] MEDS: POLYETHYLENE GLYCOL 3350, 17 GM/ POWD.PACK PO SCH (09:00)
[2021-08-25] MEDS: CEFEPIME 1 GM in D5W 50 ML IV SCH ×2 (09:57→22:08)
[2021-08-25] MEDS: ASPIRIN 81 MG TAB.CHEW PO SCH (09:57)
[2021-08-25] MEDS: GABAPENTIN 300 MG CAPSULE PO SCH ×3 (09:57→22:48)
[2021-08-25] MEDS: ARIPiprazole 5 MG TAB PO SCH (09:57)
[2021-08-25] MEDS: OMEGA-3/DHA/EPA/FISH OIL 1 GM CAPSULE PO SCH (09:58)
[2021-08-25] MEDS: MAGNESIUM OXIDE 400 MG TABLET PO SCH (09:58)
[2021-08-25] MEDS: CARVEDILOL 25 MG TABLET (COREG) PO SCH ×3 (09:58→22:49)
[2021-08-25] MEDS: PANTOPRAZOLE SODIUM 40 MG TAB PO SCH (09:59)
[2021-08-25] MEDS: APIXABAN 2.5 MG TABLET PO SCH ×2 (10:00→22:54)
[2021-08-25] MEDS: CITALOPRAM HYDROBROMIDE 20 MG TABLET PO SCH (10:00)
[2021-08-25] MEDS: INSULIN REGULAR, HUMAN 100 UNITS/ML, 10 ML VIAL (humuLIN R) SUBCUT PRN ×3 (12:03→22:57)
[2021-08-25] MEDS: SIMVASTATIN 20 MG TABLET PO SCH (22:48)
[2021-08-26] VITALS: BP_SYST 152
[2021-08-26 00:10] VITALS: BP_SYST 152
[2021-08-26] MEDS: NACL 0.9% 1,000 ML IV SCH (05:45)
[2021-08-26 06:58] LABS: BASOPHILS % (AUTO) 0.5 % (0.0-2.0); EOSINOPHILS # (AUTO) 0.3 K/uL (0.0-0.4); EOSINOPHILS % (AUTO) 3.2 % (0.0-4.0); HEMATOCRIT 30.7 % (36-54); HEMOGLOBIN 10.5 g/dL (14.0-18.0); LYMPHOCYTES # (AUTO) 1.7 K/uL (1.0-5.5); LYMPHOCYTES % (AUTO) 17.2 % (20.5-51.5); MEAN CORPUSCULAR HEMOGLOBIN 26 pg (27-31); MEAN CORPUSCULAR HGB CONC 34 % (32-36); MEAN CORPUSCULAR VOLUME 77 fL (79.0-98.0); MONOCYTES # (AUTO) 0.5 K/uL (0.0-1.0); MONOCYTES % (AUTO) 5.3 % (1.7-9.3); NEUTROPHILS # (AUTO) 7.3 K/uL (1.8-7.7); NEUTROPHILS % (AUTO) 73.8 % (40.0-70.0); PLATELET COUNT (AUTO) 164 K/uL (130-430); RED BLOOD CELL COUNT(AUTO) 4.01 MIL/uL (4.2-6.2); RED CELL DISTRIBUTION WIDTH 16.3 % (9.0-15.0); WHITE BLOOD COUNT (AUTO) 9.9 K/uL (4.8-10.8)
[2021-08-26] MEDS: LevALBUTEROL HCL 1.25 MG/0.5 ML *CONC.* VIAL.NEB (XOPENEX CONC.) INH SCH ×2 (07:00→13:00)
[2021-08-26] MEDS: IPRATROPIUM BROM 0.5 MG/2.5 ML VIAL.NEB (ATROVENT) INH SCH ×2 (07:00→11:00)
[2021-08-26 07:16] LABS: CALCIUM 8.8 mg/dL (8.4-11.0); CREATININE 1.27 mg/dL (0.55-1.30); POTASSIUM 4.5 mmol/L (3.5-5.1)
[2021-08-26 08:00] VITALS: BP_SYST 150
[2021-08-26] MEDS: OMEGA-3/DHA/EPA/FISH OIL 1 GM CAPSULE PO SCH (09:03)
[2021-08-26] MEDS: ARIPiprazole 5 MG TAB PO SCH (09:04)
[2021-08-26] MEDS: PANTOPRAZOLE SODIUM 40 MG TAB PO SCH (09:04)
[2021-08-26] MEDS: MAGNESIUM OXIDE 400 MG TABLET PO SCH (09:04)
[2021-08-26] MEDS: CITALOPRAM HYDROBROMIDE 20 MG TABLET PO SCH (09:04)
[2021-08-26] MEDS: ASPIRIN 81 MG TAB.CHEW PO SCH (09:05)
[2021-08-26] MEDS: CARVEDILOL 25 MG TABLET (COREG) PO SCH (09:06)
[2021-08-26] MEDS: GABAPENTIN 300 MG CAPSULE PO SCH ×2 (09:06→14:55)
[2021-08-26] MEDS: HYDROcodone/ACETAMIN 5-325 MG TAB (NORCO/ VICODIN) PO PRN (09:06)
[2021-08-26] MEDS: APIXABAN 2.5 MG TABLET PO SCH (09:12)
[2021-08-26] MEDS: POLYETHYLENE GLYCOL 3350, 17 GM/ POWD.PACK PO SCH (09:13)
[2021-08-26] MEDS: INSULIN REGULAR, HUMAN 100 UNITS/ML, 10 ML VIAL (humuLIN R) SUBCUT PRN (12:16)
[2021-08-26] MEDS: INSULIN GLARGINE 100 UNITS/ML 10 ML VIAL SUBCUT SCH (12:17)
== END 2021-08-26 15:39 | disposition home health service (06) | DRG 314 ==
LOC: SED 08:47 → STU 11:45 → SMU 12:57 → STU 12:58 → SMU 08-25 17:32
PROVIDERS: ADMIT Family Medicine; ATTEND Family Medicine
PROC: 5A09357 Assistance with Respiratory Ventilation, Less than 24 Consecutive Hours, Continuous Positive Airway Pressure (ICD-10-PCS; principal; 2021-08-19)
PROC: 5A09357 Assistance with Respiratory Ventilation, Less than 24 Consecutive Hours, Continuous Positive Airway Pressure (ICD-10-PCS; 2021-08-21)
PROC: 5A09457 Assistance with Respiratory Ventilation, 24-96 Consecutive Hours, Continuous Positive Airway Pressure (ICD-10-PCS; 2021-08-22)
PROC: 5A09357 Assistance with Respiratory Ventilation, Less than 24 Consecutive Hours, Continuous Positive Airway Pressure (ICD-10-PCS; 2021-08-25)
DX: I95.9 Hypotension, unspecified (principal); N17.0 Acute kidney failure with tubular necrosis; N39.0 Urinary tract infection, site not specified; Z68.43 Body mass index [BMI] 50.0-59.9, adult; I50.22 Chronic systolic (congestive) heart failure; E87.1 Hypo-osmolality and hyponatremia; E86.0 Dehydration; I11.0 Hypertensive heart disease with heart failure; E66.01 Morbid (severe) obesity due to excess calories; E11.9 Type 2 diabetes mellitus without complications; Z20.822 Contact with and (suspected) exposure to COVID-19; Z88.6 Allergy status to analgesic agent; Z88.8 Allergy status to other drugs, medicaments and biological substances; Z79.899 Other long term (current) drug therapy; Z95.0 Presence of cardiac pacemaker
CPT/HCPCS: 36415; 36600; 71045; 76376; 80048; 80053; 82803-TC; 82962; 83605; 83880; 84484; 85025; 87040; 87081; 93005; 94640; 94660; 94760; 96361; 96365; 96366; 96367; 97116-GP; 97530-GP; 99285; G0378; J0360; J0692; J1815; J2543; J3370; J7060; J7612

== ENCOUNTER 2021-10-18 23:00 | Inpatient (IN) | payer OTHER, MEDICAID, SELFPAY ==
[~2021-10-18] VITALS: Ht 167.6 cm; Wt 156.0 kg
[~2021-10-18 23:00] MED LIST changes: -CEPH250C PO; +DULA1.5P SQ; +ERGO1250 PO; -INSU100V11 SQ; +INSU100V9 SQ; -SPIR50TA5 PO; +nystop TP
[2021-10-18 23:05] VITALS: BP_SYST 180
[2021-10-18] MEDS ORDERED: NACL 0.9% 500 ML IV ONE (23:45)
[2021-10-19 00:14] LABS: BASOPHILS % (AUTO) 0.2 % (0.0-2.0); EOSINOPHILS # (AUTO) 0.3 K/uL (0.0-0.4); HEMATOCRIT 31.9 % (36-54); HEMOGLOBIN 10.8 g/dL (14.0-18.0); LYMPHOCYTES # (AUTO) 1.5 K/uL (1.0-5.5); LYMPHOCYTES % (AUTO) 17.1 % (20.5-51.5); MEAN CORPUSCULAR HEMOGLOBIN 26 pg (27-31); MEAN CORPUSCULAR HGB CONC 34 % (32-36); MEAN CORPUSCULAR VOLUME 78 fL (79.0-98.0); MONOCYTES # (AUTO) 0.5 K/uL (0.0-1.0); MONOCYTES % (AUTO) 5.2 % (1.7-9.3); NEUTROPHILS # (AUTO) 6.6 K/uL (1.8-7.7); NEUTROPHILS % (AUTO) 74.5 % (40.0-70.0); PLATELET COUNT (AUTO) 152 K/uL (130-430); WHITE BLOOD COUNT (AUTO) 8.9 K/uL (4.8-10.8)
[2021-10-19 00:23] LABS: CREATININE 2.18 mg/dL (0.55-1.30); POTASSIUM 3.9 mmol/L (3.5-5.1)
[2021-10-19 00:25] LABS: ALBUMIN 3.3 g/dL (3.4-4.8); TOTAL BILIRUBIN 0.4 mg/dL (0.0-1.0)
[2021-10-19 01:20] LABS: CLARITY/URINE CLEAR (CLEAR); COLOR,URINE YELLOW (YELLOW); PH,URINE 5.5 (5.0-8.0); PROTEIN URINE 2+ (NEGATIVE)
[2021-10-19 01:21] LABS: BILIRUBIN,URINE NEGATIVE (NEGATIVE); BLOOD, URINE 1+ (NEGATIVE); GLUCOSE,URINE TRACE (NEGATIVE); KETONES,URINE NEGATIVE (NEGATIVE)
[2021-10-19 01:22] LABS: LEUKOCYTE ESTERASE ,URINE NEGATIVE (NEGATIVE); NITRITE, URINE NEGATIVE (NEGATIVE); UROBILINOGEN,URINE 0.2 (0.2-1.0)
[2021-10-19 01:28] LABS: BACTERIA,URINE RARE /HPF (None Seen); WBC,URINE NONE SEEN /HPF (0-3)
[2021-10-19 06:11] VITALS: BP_SYST 163
[2021-10-19] MEDS: NACL 0.9% 1,000 ML IV SCH ×2 (06:39→18:35)
[2021-10-19 08:00] VITALS: BP_SYST 156
[2021-10-19 12:00] VITALS: BP_SYST 149
[2021-10-19] MEDS: INSULIN REGULAR, HUMAN 100 UNITS/ML, 10 ML VIAL (humuLIN R) SUBCUT PRN ×3 (12:30→20:36)
[2021-10-19] MEDS ORDERED: INSULIN REGULAR, HUMAN 100 UNITS/ML, 10 ML VIAL (humuLIN R) SUBCUT PRN (13:15)
[2021-10-19] MEDS ORDERED: ACETAMINOPHEN/CODEINE 300 MG-30 MG TABLET PO SCH (13:15)
[2021-10-19] MEDS ORDERED: NALOXONE HCL 0.4 MG/ML AMP (NARCAN) IVP PRN (13:15)
[2021-10-19] MEDS: GABAPENTIN 300 MG CAPSULE PO SCH ×2 (15:28→20:34)
[2021-10-19] MEDS: hydrALAZINE HCL 25 MG TABLET PO SCH ×2 (15:37→18:28)
[2021-10-19 16:55] VITALS: BP_SYST 173
[2021-10-19] MEDS ORDERED: cloNIDine HCL 0.1 MG TABLET PO PRN (18:45)
[2021-10-19] MEDS: CARVEDILOL 25 MG TABLET (COREG) PO SCH (20:33)
[2021-10-19] MEDS: SIMVASTATIN 20 MG TABLET PO SCH (20:33)
[2021-10-19] MEDS: APIXABAN 2.5 MG TABLET PO SCH (20:34)
[2021-10-19] MEDS: INSULIN GLARGINE 100 UNITS/ML 10 ML VIAL SQ SCH (20:35)
[2021-10-19 21:12] VITALS: BP_SYST 129
[2021-10-19 21:48] VITALS: BP_SYST 129
[2021-10-20 05:46] VITALS: BP_SYST 136
[2021-10-20] MEDS: hydrALAZINE HCL 25 MG TABLET PO SCH ×3 (06:03→21:32)
[2021-10-20] MEDS: INSULIN REGULAR, HUMAN 100 UNITS/ML, 10 ML VIAL (humuLIN R) SUBCUT PRN ×3 (06:04→16:54)
[2021-10-20 06:51] LABS: BASOPHILS # (AUTO) 0.1 K/uL (0.0-0.2); BASOPHILS % (AUTO) 0.6 % (0.0-2.0); EOSINOPHILS # (AUTO) 0.2 K/uL (0.0-0.4); EOSINOPHILS % (AUTO) 2.3 % (0.0-4.0); HEMATOCRIT 30.6 % (36-54); HEMOGLOBIN 10.4 g/dL (14.0-18.0); LYMPHOCYTES # (AUTO) 1.4 K/uL (1.0-5.5); LYMPHOCYTES % (AUTO) 15.9 % (20.5-51.5); MEAN CORPUSCULAR HEMOGLOBIN 27 pg (27-31); MEAN CORPUSCULAR HGB CONC 34 % (32-36); MEAN CORPUSCULAR VOLUME 78 fL (79.0-98.0); MONOCYTES # (AUTO) 0.5 K/uL (0.0-1.0); MONOCYTES % (AUTO) 5.3 % (1.7-9.3); NEUTROPHILS # (AUTO) 6.7 K/uL (1.8-7.7); NEUTROPHILS % (AUTO) 75.9 % (40.0-70.0); PLATELET COUNT (AUTO) 150 K/uL (130-430); RED BLOOD CELL COUNT(AUTO) 3.91 MIL/uL (4.2-6.2); WHITE BLOOD COUNT (AUTO) 8.8 K/uL (4.8-10.8)
[2021-10-20 07:08] LABS: CALCIUM 8.2 mg/dL (8.4-11.0); CREATININE 1.69 mg/dL (0.55-1.30)
[2021-10-20] MEDS: NACL 0.9% 1,000 ML IV SCH ×2 (07:20→21:15)
[2021-10-20 08:00] VITALS: BP_SYST 141
[2021-10-20] MEDS: GABAPENTIN 300 MG CAPSULE PO SCH ×3 (08:45→20:43)
[2021-10-20] MEDS: OMEGA-3/DHA/EPA/FISH OIL 1 GM CAPSULE PO SCH (08:45)
[2021-10-20] MEDS: ARIPiprazole 5 MG TAB PO SCH (08:46)
[2021-10-20] MEDS: ASPIRIN 81 MG TAB.CHEW PO SCH (08:47)
[2021-10-20] MEDS: PANTOPRAZOLE SODIUM 40 MG TAB PO SCH (08:47)
[2021-10-20] MEDS: CARVEDILOL 25 MG TABLET (COREG) PO SCH ×2 (08:47→20:42)
[2021-10-20] MEDS: MAGNESIUM OXIDE 400 MG TABLET PO SCH (08:47)
[2021-10-20] MEDS: APIXABAN 2.5 MG TABLET PO SCH ×2 (08:49→20:43)
[2021-10-20] MEDS: POLYETHYLENE GLYCOL 3350, 17 GM/ POWD.PACK PO SCH (08:49)
[2021-10-20] MEDS: INSULIN GLARGINE 100 UNITS/ML 10 ML VIAL SQ SCH ×2 (08:53→20:44)
[2021-10-20] MEDS: NYSTATIN 15 GM TOPICAL POWDER TP SCH (11:10)
[2021-10-20 12:00] VITALS: BP_SYST 148
[2021-10-20 16:00] VITALS: BP_SYST 141
[2021-10-20] MEDS: SIMVASTATIN 20 MG TABLET PO SCH (20:43)
[2021-10-20 22:33] VITALS: BP_SYST 154
[2021-10-21 00:59] VITALS: BP_SYST 122; BP_SYST 141
[2021-10-21 04:17] VITALS: BP_SYST 136
[2021-10-21] MEDS: hydrALAZINE HCL 25 MG TABLET PO SCH ×3 (06:14→21:00)
[2021-10-21] MEDS: INSULIN REGULAR, HUMAN 100 UNITS/ML, 10 ML VIAL (humuLIN R) SUBCUT PRN ×4 (06:16→20:40)
[2021-10-21 07:07] LABS: CALCIUM 8.7 mg/dL (8.4-11.0); CREATININE 1.76 mg/dL (0.55-1.30); POTASSIUM 3.8 mmol/L (3.5-5.1)
[2021-10-21 07:55] VITALS: BP_SYST 139
[2021-10-21] MEDS: POLYETHYLENE GLYCOL 3350, 17 GM/ POWD.PACK PO SCH (09:00)
[2021-10-21] MEDS: ASPIRIN 81 MG TAB.CHEW PO SCH (09:07)
[2021-10-21] MEDS: OMEGA-3/DHA/EPA/FISH OIL 1 GM CAPSULE PO SCH (09:07)
[2021-10-21] MEDS: MAGNESIUM OXIDE 400 MG TABLET PO SCH (09:07)
[2021-10-21] MEDS: GABAPENTIN 300 MG CAPSULE PO SCH ×3 (09:08→20:38)
[2021-10-21] MEDS: APIXABAN 2.5 MG TABLET PO SCH ×2 (09:08→20:38)
[2021-10-21] MEDS: ARIPiprazole 5 MG TAB PO SCH (09:09)
[2021-10-21] MEDS: PANTOPRAZOLE SODIUM 40 MG TAB PO SCH (09:09)
[2021-10-21] MEDS: CARVEDILOL 25 MG TABLET (COREG) PO SCH ×2 (09:10→20:39)
[2021-10-21] MEDS: INSULIN GLARGINE 100 UNITS/ML 10 ML VIAL SQ SCH ×2 (09:18→20:39)
[2021-10-21] MEDS: NYSTATIN 15 GM TOPICAL POWDER TP SCH (09:24)
[2021-10-21] MEDS: NACL 0.9% 1,000 ML IV SCH ×2 (09:29→23:55)
[2021-10-21 11:59] VITALS: BP_SYST 137
[2021-10-21 16:00] VITALS: BP_SYST 124
[2021-10-21] MEDS: SIMVASTATIN 20 MG TABLET PO SCH (20:38)
[2021-10-21 22:00] VITALS: BP_SYST 113
[2021-10-22] VITALS (7 sets, daily range): BP systolic 129–156
[2021-10-22] MEDS: hydrALAZINE HCL 25 MG TABLET PO SCH (06:20)
[2021-10-22] MEDS: INSULIN REGULAR, HUMAN 100 UNITS/ML, 10 ML VIAL (humuLIN R) SUBCUT PRN (06:21)
[2021-10-22 07:29] LABS: CALCIUM 8.2 mg/dL (8.4-11.0); CREATININE 1.81 mg/dL (0.55-1.30)
[2021-10-22] MEDS: OMEGA-3/DHA/EPA/FISH OIL 1 GM CAPSULE PO SCH (09:43)
[2021-10-22] MEDS: ASPIRIN 81 MG TAB.CHEW PO SCH (09:44)
[2021-10-22] MEDS: ARIPiprazole 5 MG TAB PO SCH (09:45)
[2021-10-22] MEDS: CARVEDILOL 25 MG TABLET (COREG) PO SCH (09:45)
[2021-10-22] MEDS: PANTOPRAZOLE SODIUM 40 MG TAB PO SCH (09:46)
[2021-10-22] MEDS: GABAPENTIN 300 MG CAPSULE PO SCH (09:46)
[2021-10-22] MEDS: POLYETHYLENE GLYCOL 3350, 17 GM/ POWD.PACK PO SCH (09:46)
[2021-10-22] MEDS: MAGNESIUM OXIDE 400 MG TABLET PO SCH (09:46)
[2021-10-22] MEDS: APIXABAN 2.5 MG TABLET PO SCH (09:49)
[2021-10-22] MEDS: INSULIN GLARGINE 100 UNITS/ML 10 ML VIAL SQ SCH (09:50)
[2021-10-22] MEDS: NYSTATIN 15 GM TOPICAL POWDER TP SCH (09:52)
[2021-10-22] MEDS ORDERED: HYDR-4037 PO (17:17)
[2021-10-23] MEDS ORDERED: NON-FORMULARY MEDICATION (Ergocalciferol (Vitamin D2) (Vitamin D2) 1 TAB) PO SCH (09:00)
[2021-10-26] MEDS ORDERED: NON-FORMULARY MEDICATION (Dulaglutide (Trulicity) 1.5 MG) SQ SCH (09:00)
== END 2021-10-22 18:30 | disposition home or self-care (01) | DRG 682 ==
LOC: SED 23:00 → SMU 10-19 05:12
PROVIDERS: ADMIT Family Medicine; ATTEND Family Medicine
PROC: 5A09457 Assistance with Respiratory Ventilation, 24-96 Consecutive Hours, Continuous Positive Airway Pressure (ICD-10-PCS; principal; 2021-10-19)
DX: N17.9 Acute kidney failure, unspecified (principal); G93.41 Metabolic encephalopathy; E87.1 Hypo-osmolality and hyponatremia; Z68.43 Body mass index [BMI] 50.0-59.9, adult; E86.0 Dehydration; E11.9 Type 2 diabetes mellitus without complications; D64.9 Anemia, unspecified; E11.40 Type 2 diabetes mellitus with diabetic neuropathy, unspecified; Z20.822 Contact with and (suspected) exposure to COVID-19; I10 Essential (primary) hypertension; G47.33 Obstructive sleep apnea (adult) (pediatric); E66.9 Obesity, unspecified; Z88.5 Allergy status to narcotic agent; Z88.8 Allergy status to other drugs, medicaments and biological substances; Z79.899 Other long term (current) drug therapy; Z87.891 Personal history of nicotine dependence; Z79.82 Long term (current) use of aspirin
CPT/HCPCS: 36415; 71045; 80048; 80053; 81000; 82962; 83605; 85025; 87040; 87081; 94660; 94760; 99285; J1815

== ENCOUNTER 2021-11-02 22:24 | Inpatient (IN) | payer OTHER, MEDICAID, SELFPAY ==
[~2021-11-02] VITALS: Ht 167.6 cm; Wt 158.3 kg
[~2021-11-02 22:24] MED LIST changes: +HYDR-4037 PO
[2021-11-02 23:00] VITALS: BP_SYST 124
[2021-11-03] MEDS ORDERED: ACETAMINOPHEN 500 MG TABLET PO ONE (00:15)
[2021-11-03 01:28] LABS: CALCIUM 8.6 mg/dL (8.4-11.0); CREATININE 1.84 mg/dL (0.55-1.30); POTASSIUM 4.2 mmol/L (3.5-5.1)
[2021-11-03 01:37] LABS: ALBUMIN 3.2 g/dL (3.4-4.8); TOTAL BILIRUBIN 0.3 mg/dL (0.0-1.0)
[2021-11-03] MEDS ORDERED: KETOROLAC TROMETHAMINE 30 MG VIAL IVP ONE (01:45)
[2021-11-03 01:52] LABS: BASOPHILS # (AUTO) 0.1 K/uL (0.0-0.2); BASOPHILS % (AUTO) 0.8 % (0.0-2.0); EOSINOPHILS # (AUTO) 0.2 K/uL (0.0-0.4); EOSINOPHILS % (AUTO) 1.4 % (0.0-4.0); HEMATOCRIT 29.2 % (36-54); HEMOGLOBIN 9.8 g/dL (14.0-18.0); LYMPHOCYTES # (AUTO) 1.5 K/uL (1.0-5.5); LYMPHOCYTES % (AUTO) 10.1 % (20.5-51.5); MEAN CORPUSCULAR HEMOGLOBIN 26 pg (27-31); MEAN CORPUSCULAR HGB CONC 34 % (32-36); MEAN CORPUSCULAR VOLUME 77 fL (79.0-98.0); MONOCYTES # (AUTO) 0.7 K/uL (0.0-1.0); MONOCYTES % (AUTO) 5.1 % (1.7-9.3); NEUTROPHILS # (AUTO) 11.9 K/uL (1.8-7.7); NEUTROPHILS % (AUTO) 82.6 % (40.0-70.0); PLATELET COUNT (AUTO) 186 K/uL (130-430); RED BLOOD CELL COUNT(AUTO) 3.78 MIL/uL (4.2-6.2); RED CELL DISTRIBUTION WIDTH 15.4 % (9.0-15.0); WHITE BLOOD COUNT (AUTO) 14.5 K/uL (4.8-10.8)
[2021-11-03 02:51] LABS: INR 1.1 (0.80-1.20); PROTHROMBIN TIME 10.8 SECS (9.5-12.5)
[2021-11-03] MEDS ORDERED: cefTRIAXone 1 GM in D5W 50 ML IV ONE (03:00)
[2021-11-03] MEDS ORDERED: NACL 0.9% 1,000 ML IV ONE (03:00)
[2021-11-03] MEDS ORDERED: cefTRIAXone 1 GM VIAL ONE (03:01)
[2021-11-03] MEDS ORDERED: ACETAMINOPHEN 500 MG TABLET ONE (03:04)
[2021-11-03 04:00] LABS: BILIRUBIN,URINE NEGATIVE (NEGATIVE); CLARITY/URINE CLEAR (CLEAR); COLOR,URINE YELLOW (YELLOW); GLUCOSE,URINE NEGATIVE (NEGATIVE); KETONES,URINE NEGATIVE (NEGATIVE); LEUKOCYTE ESTERASE ,URINE NEGATIVE (NEGATIVE); NITRITE, URINE NEGATIVE (NEGATIVE); PROTEIN URINE 2+ (NEGATIVE); UROBILINOGEN,URINE 0.2 (0.2-1.0)
[2021-11-03 04:09] LABS: BLOOD, URINE TRACE (NEGATIVE)
[2021-11-03 04:16] LABS: BARBITURATE, URINE NEGATIVE (NEG <=200); BENZODIAZEPINE, URINE NEGATIVE (NEG <=150); CANNABINOID, URINE NEGATIVE (NEG <=50); COCAINE, URINE NEGATIVE (NEG <=150); METHAMPHETAMINES SCREEN,URINE NEGATIVE (NEG <=500); OPIATE, URINE NEGATIVE (NEG <=100); PHENCYCLIDINE SCREEN,URINE NEGATIVE (NEG <=25); UR TRICYCLIC ANTIDEPRESSANTS NEGATIVE (NEG <=300); URINE AMPHETAMINE NEGATIVE (NEG <=500); URINE METHADONE NEGATIVE (NEG <=200); URINE OXYCODONE SCREEN NEGATIVE (NEG <=100); URINE PROPOXYPHENE SCREEN NEGATIVE (NEG <=300)
[2021-11-03] MEDS ORDERED: VANCOMYCIN HCL 1,000 MG in NS 250 ML IV ONE (06:00)
[2021-11-03] MEDS ORDERED: VANCOMYCIN HCL 1000 MG/VIAL IV ONE (06:03)
[2021-11-03] MEDS ORDERED: INSULIN REGULAR, HUMAN 100 UNITS/ML, 10 ML VIAL (humuLIN R) SUBCUT PRN (06:30)
[2021-11-03] MEDS ORDERED: ACETAMINOPHEN 325 MG TABLET PO PRN (06:30)
[2021-11-03] MEDS ORDERED: GLUCOSE (DEXTROSE) ORAL GEL -Adults PO PRN (07:15)
[2021-11-03] MEDS ORDERED: D5W 1,000 ML IV PRN (07:15)
[2021-11-03] MEDS ORDERED: DEXTROSE 50%-WATER 50 ML DISP.SYRIN IVP PRN (07:15)
[2021-11-03] MEDS: 0.45% NACL 1,000 ML IV SCH ×2 (07:45→19:50)
[2021-11-03] MEDS: PIPERACILLIN/TAZO 2.25G/DEX-IS 50 ML IV SCH ×3 (12:19→23:46)
[2021-11-03] MEDS ORDERED: ACETAMINOPHEN/CODEINE 300 MG-30 MG TABLET PO PRN (13:15)
[2021-11-03] MEDS ORDERED: NALOXONE HCL 0.4 MG/ML AMP (NARCAN) IVP PRN ×2 (13:15)
[2021-11-03] MEDS ORDERED: HYDROcodone/ACETAMIN 5-325 MG TAB (NORCO/ VICODIN) PO PRN (13:15)
[2021-11-03] MEDS ORDERED: LevALBUTEROL HCL 1.25 MG/0.5 ML *CONC.* VIAL.NEB (XOPENEX CONC.) INH PRN (13:45)
[2021-11-03] MEDS: hydrALAZINE HCL 10 MG TABLET PO SCH ×2 (15:27→20:40)
[2021-11-03] MEDS: GABAPENTIN 300 MG CAPSULE PO SCH ×2 (15:27→20:39)
[2021-11-03] MEDS: INSULIN REGULAR, HUMAN 100 UNITS/ML, 10 ML VIAL (humuLIN R) SUBCUT PRN (17:03)
[2021-11-03] MEDS ORDERED: PIPERACILLIN/TAZO 3.375/DEX-IS 50 ML IV SCH (18:00)
[2021-11-03] MEDS ORDERED: VANCOMYCIN HCL 1,000 MG in NS 250 ML IV SCH (18:00)
[2021-11-03 18:19] VITALS: BP_SYST 134
[2021-11-03 18:46] VITALS: BP_SYST 146
[2021-11-03 20:30] VITALS: BP_SYST 147
[2021-11-03] MEDS: SIMVASTATIN 20 MG TABLET PO SCH (20:39)
[2021-11-03] MEDS: CARVEDILOL 25 MG TABLET (COREG) PO SCH (20:41)
[2021-11-03] MEDS: APIXABAN 2.5 MG TABLET PO SCH (20:43)
[2021-11-03] MEDS: LevALBUTEROL HCL 1.25 MG/0.5 ML *CONC.* VIAL.NEB (XOPENEX CONC.) INH SCH (20:49)
[2021-11-03] MEDS: INSULIN GLARGINE 100 UNITS/ML 10 ML VIAL SQ SCH (20:56)
[2021-11-04 00:30] VITALS: BP_SYST 135
[2021-11-04] MEDS: LevALBUTEROL HCL 1.25 MG/0.5 ML *CONC.* VIAL.NEB (XOPENEX CONC.) INH SCH ×4 (01:30→20:29)
[2021-11-04] MEDS ORDERED: ALBUTEROL SULFATE 0.083% 2.5 MG/3 ML VIAL.NEB INH ONE (05:41)
[2021-11-04] MEDS: PIPERACILLIN/TAZO 2.25G/DEX-IS 50 ML IV SCH ×4 (06:02→23:31)
[2021-11-04] MEDS: INSULIN REGULAR, HUMAN 100 UNITS/ML, 10 ML VIAL (humuLIN R) SUBCUT PRN ×4 (06:08→21:26)
[2021-11-04 07:21] LABS: BASOPHILS # (AUTO) 0.1 K/uL (0.0-0.2); BASOPHILS % (AUTO) 0.7 % (0.0-2.0); EOSINOPHILS # (AUTO) 0.2 K/uL (0.0-0.4); EOSINOPHILS % (AUTO) 1.4 % (0.0-4.0); HEMATOCRIT 28.4 % (36-54); HEMOGLOBIN 9.5 g/dL (14.0-18.0); LYMPHOCYTES # (AUTO) 1.1 K/uL (1.0-5.5); LYMPHOCYTES % (AUTO) 9.8 % (20.5-51.5); MEAN CORPUSCULAR HEMOGLOBIN 26 pg (27-31); MEAN CORPUSCULAR HGB CONC 33 % (32-36); MEAN CORPUSCULAR VOLUME 78 fL (79.0-98.0); MONOCYTES # (AUTO) 0.4 K/uL (0.0-1.0); MONOCYTES % (AUTO) 3.6 % (1.7-9.3); NEUTROPHILS # (AUTO) 9.6 K/uL (1.8-7.7); NEUTROPHILS % (AUTO) 84.5 % (40.0-70.0); PLATELET COUNT (AUTO) 155 K/uL (130-430); RED BLOOD CELL COUNT(AUTO) 3.64 MIL/uL (4.2-6.2); RED CELL DISTRIBUTION WIDTH 15.5 % (9.0-15.0); WHITE BLOOD COUNT (AUTO) 11.4 K/uL (4.8-10.8)
[2021-11-04 08:15] VITALS: BP_SYST 148
[2021-11-04 08:15] LABS: CALCIUM 8.9 mg/dL (8.4-11.0); CREATININE 1.91 mg/dL (0.55-1.30); POTASSIUM 5.1 mmol/L (3.5-5.1)
[2021-11-04] MEDS: MAGNESIUM OXIDE 400 MG TABLET PO SCH (08:49)
[2021-11-04] MEDS: ARIPiprazole 5 MG TAB PO SCH (08:49)
[2021-11-04] MEDS: CARVEDILOL 25 MG TABLET (COREG) PO SCH ×2 (08:49→21:13)
[2021-11-04] MEDS: ASPIRIN 81 MG TAB.CHEW PO SCH (08:49)
[2021-11-04] MEDS: GABAPENTIN 300 MG CAPSULE PO SCH ×3 (08:49→21:07)
[2021-11-04] MEDS: PANTOPRAZOLE SODIUM 40 MG TAB PO SCH (08:50)
[2021-11-04] MEDS: INSULIN GLARGINE 100 UNITS/ML 10 ML VIAL SQ SCH ×2 (08:51→21:27)
[2021-11-04] MEDS: APIXABAN 2.5 MG TABLET PO SCH ×2 (08:51→21:17)
[2021-11-04] MEDS: POLYETHYLENE GLYCOL 3350, 17 GM/ POWD.PACK PO SCH (08:52)
[2021-11-04] MEDS: hydrALAZINE HCL 10 MG TABLET PO SCH ×3 (08:57→21:12)
[2021-11-04 09:06] LABS: C-REACTIVE PROTEIN QUANT 7.2 mg/dL (0-0.5)
[2021-11-04 12:34] VITALS: BP_SYST 124
[2021-11-04 16:10] VITALS: BP_SYST 130
[2021-11-04] MEDS: 0.45% NACL 1,000 ML IV SCH ×2 (16:32→23:32)
[2021-11-04 21:00] VITALS: BP_SYST 147
[2021-11-04] MEDS: SIMVASTATIN 20 MG TABLET PO SCH (21:12)
[2021-11-05] MEDS: LevALBUTEROL HCL 1.25 MG/0.5 ML *CONC.* VIAL.NEB (XOPENEX CONC.) INH SCH ×4 (01:27→20:24)
[2021-11-05] MEDS: PIPERACILLIN/TAZO 2.25G/DEX-IS 50 ML IV SCH (05:24)
[2021-11-05] MEDS: INSULIN REGULAR, HUMAN 100 UNITS/ML, 10 ML VIAL (humuLIN R) SUBCUT PRN ×4 (06:40→22:11)
[2021-11-05] MEDS: POLYETHYLENE GLYCOL 3350, 17 GM/ POWD.PACK PO SCH (08:01)
[2021-11-05] MEDS: PANTOPRAZOLE SODIUM 40 MG TAB PO SCH (08:07)
[2021-11-05] MEDS: MAGNESIUM OXIDE 400 MG TABLET PO SCH (08:07)
[2021-11-05] MEDS: ASPIRIN 81 MG TAB.CHEW PO SCH (08:07)
[2021-11-05] MEDS: GABAPENTIN 300 MG CAPSULE PO SCH ×3 (08:07→22:06)
[2021-11-05] MEDS: ARIPiprazole 5 MG TAB PO SCH (08:08)
[2021-11-05] MEDS: CARVEDILOL 25 MG TABLET (COREG) PO SCH ×2 (08:08→22:07)
[2021-11-05] MEDS: hydrALAZINE HCL 10 MG TABLET PO SCH ×3 (08:08→22:08)
[2021-11-05] MEDS: APIXABAN 2.5 MG TABLET PO SCH ×2 (08:09→22:09)
[2021-11-05] MEDS: INSULIN GLARGINE 100 UNITS/ML 10 ML VIAL SQ SCH ×2 (08:10→22:12)
[2021-11-05 08:15] VITALS: BP_SYST 132
[2021-11-05 08:43] VITALS: BP_SYST 132
[2021-11-05] MEDS: 0.45% NACL 1,000 ML IV SCH (10:19)
[2021-11-05 12:25] VITALS: BP_SYST 139
[2021-11-05 16:51] VITALS: BP_SYST 135
[2021-11-05 20:00] VITALS: BP_SYST 135
[2021-11-05] MEDS: CEFEPIME 0.5 GM in D5W 50 ML IV SCH (21:58)
[2021-11-05] MEDS: SIMVASTATIN 20 MG TABLET PO SCH (22:07)
[2021-11-06 00:45] VITALS: BP_SYST 154
[2021-11-06] MEDS: 0.45% NACL 1,000 ML IV SCH ×2 (01:10→08:09)
[2021-11-06] MEDS: LevALBUTEROL HCL 1.25 MG/0.5 ML *CONC.* VIAL.NEB (XOPENEX CONC.) INH SCH ×4 (02:17→20:39)
[2021-11-06] MEDS: INSULIN REGULAR, HUMAN 100 UNITS/ML, 10 ML VIAL (humuLIN R) SUBCUT PRN ×4 (06:12→21:52)
[2021-11-06 06:49] LABS: BASOPHILS % (AUTO) 0.5 % (0.0-2.0); EOSINOPHILS # (AUTO) 0.2 K/uL (0.0-0.4); EOSINOPHILS % (AUTO) 1.9 % (0.0-4.0); HEMATOCRIT 27.1 % (36-54); HEMOGLOBIN 9.2 g/dL (14.0-18.0); LYMPHOCYTES # (AUTO) 1.7 K/uL (1.0-5.5); LYMPHOCYTES % (AUTO) 17.7 % (20.5-51.5); MEAN CORPUSCULAR HEMOGLOBIN 26 pg (27-31); MEAN CORPUSCULAR HGB CONC 34 % (32-36); MEAN CORPUSCULAR VOLUME 78 fL (79.0-98.0); MONOCYTES # (AUTO) 0.4 K/uL (0.0-1.0); MONOCYTES % (AUTO) 4.6 % (1.7-9.3); NEUTROPHILS # (AUTO) 7.1 K/uL (1.8-7.7); NEUTROPHILS % (AUTO) 75.3 % (40.0-70.0); PLATELET COUNT (AUTO) 162 K/uL (130-430); RED BLOOD CELL COUNT(AUTO) 3.48 MIL/uL (4.2-6.2); RED CELL DISTRIBUTION WIDTH 15.4 % (9.0-15.0); WHITE BLOOD COUNT (AUTO) 9.4 K/uL (4.8-10.8)
[2021-11-06 07:11] LABS: CREATININE 1.65 mg/dL (0.55-1.30); POTASSIUM 4.9 mmol/L (3.5-5.1)
[2021-11-06] MEDS: hydrALAZINE HCL 10 MG TABLET PO SCH ×3 (08:05→21:28)
[2021-11-06] MEDS: ARIPiprazole 5 MG TAB PO SCH (08:05)
[2021-11-06] MEDS: ASPIRIN 81 MG TAB.CHEW PO SCH (08:06)
[2021-11-06] MEDS: PANTOPRAZOLE SODIUM 40 MG TAB PO SCH (08:06)
[2021-11-06] MEDS: CARVEDILOL 25 MG TABLET (COREG) PO SCH ×2 (08:06→21:27)
[2021-11-06] MEDS: MAGNESIUM OXIDE 400 MG TABLET PO SCH (08:06)
[2021-11-06] MEDS: GABAPENTIN 300 MG CAPSULE PO SCH ×3 (08:06→21:28)
[2021-11-06] MEDS: APIXABAN 2.5 MG TABLET PO SCH ×2 (08:07→21:53)
[2021-11-06] MEDS: INSULIN GLARGINE 100 UNITS/ML 10 ML VIAL SQ SCH ×2 (08:08→21:49)
[2021-11-06] MEDS: POLYETHYLENE GLYCOL 3350, 17 GM/ POWD.PACK PO SCH (08:09)
[2021-11-06] MEDS: CEFEPIME 0.5 GM in D5W 50 ML IV SCH ×2 (08:12→21:58)
[2021-11-06 08:15] VITALS: BP_SYST 154
[2021-11-06 09:45] VITALS: BP_SYST 154
[2021-11-06 12:20] VITALS: BP_SYST 138
[2021-11-06 17:13] VITALS: BP_SYST 133
[2021-11-06] MEDS: SIMVASTATIN 20 MG TABLET PO SCH (21:28)
[2021-11-07 00:34] VITALS: BP_SYST 143
[2021-11-07] MEDS: 0.45% NACL 1,000 ML IV SCH ×3 (03:50→21:56)
[2021-11-07] MEDS: LevALBUTEROL HCL 1.25 MG/0.5 ML *CONC.* VIAL.NEB (XOPENEX CONC.) INH SCH ×3 (07:49→20:15)
[2021-11-07 08:00] VITALS: BP_SYST 145
[2021-11-07 09:04] VITALS: BP_SYST 162
[2021-11-07] MEDS: POLYETHYLENE GLYCOL 3350, 17 GM/ POWD.PACK PO SCH (09:56)
[2021-11-07] MEDS: ASPIRIN 81 MG TAB.CHEW PO SCH (09:56)
[2021-11-07] MEDS: ARIPiprazole 5 MG TAB PO SCH (09:57)
[2021-11-07] MEDS: GABAPENTIN 300 MG CAPSULE PO SCH ×3 (09:57→21:40)
[2021-11-07] MEDS: PANTOPRAZOLE SODIUM 40 MG TAB PO SCH (09:57)
[2021-11-07] MEDS: hydrALAZINE HCL 10 MG TABLET PO SCH ×3 (09:58→21:00)
[2021-11-07] MEDS: CARVEDILOL 25 MG TABLET (COREG) PO SCH ×2 (09:58→21:40)
[2021-11-07] MEDS: MAGNESIUM OXIDE 400 MG TABLET PO SCH (09:58)
[2021-11-07] MEDS: CEFEPIME 0.5 GM in D5W 50 ML IV SCH ×2 (10:01→21:54)
[2021-11-07] MEDS: INSULIN GLARGINE 100 UNITS/ML 10 ML VIAL SQ SCH ×2 (10:06→21:46)
[2021-11-07] MEDS: APIXABAN 2.5 MG TABLET PO SCH ×2 (10:06→21:41)
[2021-11-07 12:00] VITALS: BP_SYST 136
[2021-11-07] MEDS: INSULIN REGULAR, HUMAN 100 UNITS/ML, 10 ML VIAL (humuLIN R) SUBCUT PRN ×2 (12:42→17:35)
[2021-11-07 16:00] VITALS: BP_SYST 154
[2021-11-07 21:30] VITALS: BP_SYST 125
[2021-11-07] MEDS: SIMVASTATIN 20 MG TABLET PO SCH (21:40)
[2021-11-08 00:45] VITALS: BP_SYST 138
[2021-11-08] MEDS: LevALBUTEROL HCL 1.25 MG/0.5 ML *CONC.* VIAL.NEB (XOPENEX CONC.) INH SCH ×3 (01:00→14:13)
[2021-11-08 08:00] VITALS: BP_SYST 135
[2021-11-08] MEDS: CEFEPIME 0.5 GM in D5W 50 ML IV SCH ×2 (09:00→22:51)
[2021-11-08] MEDS: MAGNESIUM OXIDE 400 MG TABLET PO SCH (10:27)
[2021-11-08] MEDS: ASPIRIN 81 MG TAB.CHEW PO SCH (10:27)
[2021-11-08] MEDS: ARIPiprazole 5 MG TAB PO SCH (10:28)
[2021-11-08] MEDS: hydrALAZINE HCL 10 MG TABLET PO SCH ×3 (10:28→22:03)
[2021-11-08] MEDS: PANTOPRAZOLE SODIUM 40 MG TAB PO SCH (10:28)
[2021-11-08] MEDS: POLYETHYLENE GLYCOL 3350, 17 GM/ POWD.PACK PO SCH (10:29)
[2021-11-08] MEDS: GABAPENTIN 300 MG CAPSULE PO SCH ×3 (10:29→22:03)
[2021-11-08] MEDS: CARVEDILOL 25 MG TABLET (COREG) PO SCH ×2 (10:29→22:03)
[2021-11-08] MEDS: APIXABAN 2.5 MG TABLET PO SCH ×2 (10:32→22:06)
[2021-11-08] MEDS: INSULIN GLARGINE 100 UNITS/ML 10 ML VIAL SQ SCH ×2 (10:34→21:00)
[2021-11-08 12:00] VITALS: BP_SYST 125
[2021-11-08 17:35] VITALS: BP_SYST 157
[2021-11-08 20:00] VITALS: BP_SYST 140
[2021-11-08] MEDS: SIMVASTATIN 20 MG TABLET PO SCH (22:04)
[2021-11-09] VITALS: BP_SYST 139
[2021-11-09] MEDS: LevALBUTEROL HCL 1.25 MG/0.5 ML *CONC.* VIAL.NEB (XOPENEX CONC.) INH SCH ×3 (00:20→13:00)
[2021-11-09] MEDS: 0.45% NACL 1,000 ML IV SCH ×3 (02:19→22:30)
[2021-11-09 04:04] VITALS: BP_SYST 125
[2021-11-09 08:00] VITALS: BP_SYST 113
[2021-11-09] MEDS: POLYETHYLENE GLYCOL 3350, 17 GM/ POWD.PACK PO SCH ×2 (09:00→09:20)
[2021-11-09] MEDS: CEFEPIME 0.5 GM in D5W 50 ML IV SCH ×2 (09:20→09:38)
[2021-11-09] MEDS: ARIPiprazole 5 MG TAB PO SCH (09:20)
[2021-11-09] MEDS: PANTOPRAZOLE SODIUM 40 MG TAB PO SCH (09:20)
[2021-11-09] MEDS: ASPIRIN 81 MG TAB.CHEW PO SCH (09:21)
[2021-11-09] MEDS: MAGNESIUM OXIDE 400 MG TABLET PO SCH (09:21)
[2021-11-09] MEDS: GABAPENTIN 300 MG CAPSULE PO SCH ×3 (09:21→21:22)
[2021-11-09] MEDS: hydrALAZINE HCL 10 MG TABLET PO SCH ×3 (09:21→21:21)
[2021-11-09] MEDS: APIXABAN 2.5 MG TABLET PO SCH ×2 (09:22→21:29)
[2021-11-09] MEDS: INSULIN GLARGINE 100 UNITS/ML 10 ML VIAL SQ SCH ×2 (09:24→21:31)
[2021-11-09] MEDS: CARVEDILOL 25 MG TABLET (COREG) PO SCH ×2 (09:25→21:23)
[2021-11-09 11:38] VITALS: BP_SYST 139
[2021-11-09 15:26] VITALS: BP_SYST 130
[2021-11-09] MEDS: INSULIN REGULAR, HUMAN 100 UNITS/ML, 10 ML VIAL (humuLIN R) SUBCUT PRN (18:26)
[2021-11-09 20:00] VITALS: BP_SYST 131
[2021-11-09] MEDS: SIMVASTATIN 20 MG TABLET PO SCH (21:22)
[2021-11-10] MEDS: LevALBUTEROL HCL 1.25 MG/0.5 ML *CONC.* VIAL.NEB (XOPENEX CONC.) INH SCH ×4 (01:00→13:44)
[2021-11-10 03:13] VITALS: BP_SYST 111
[2021-11-10] MEDS: INSULIN REGULAR, HUMAN 100 UNITS/ML, 10 ML VIAL (humuLIN R) SUBCUT PRN ×3 (06:25→16:47)
[2021-11-10 08:32] VITALS: BP_SYST 122
[2021-11-10] MEDS: POLYETHYLENE GLYCOL 3350, 17 GM/ POWD.PACK PO SCH (09:00)
[2021-11-10] MEDS: PANTOPRAZOLE SODIUM 40 MG TAB PO SCH (09:19)
[2021-11-10] MEDS: ARIPiprazole 5 MG TAB PO SCH (09:19)
[2021-11-10] MEDS: CARVEDILOL 25 MG TABLET (COREG) PO SCH (09:20)
[2021-11-10] MEDS: APIXABAN 2.5 MG TABLET PO SCH (09:21)
[2021-11-10] MEDS: MAGNESIUM OXIDE 400 MG TABLET PO SCH (09:21)
[2021-11-10] MEDS: hydrALAZINE HCL 10 MG TABLET PO SCH ×2 (09:21→15:29)
[2021-11-10] MEDS: GABAPENTIN 300 MG CAPSULE PO SCH ×2 (09:22→15:29)
[2021-11-10] MEDS: ASPIRIN 81 MG TAB.CHEW PO SCH (09:22)
[2021-11-10] MEDS: INSULIN GLARGINE 100 UNITS/ML 10 ML VIAL SQ SCH (09:24)
[2021-11-10] MEDS: 0.45% NACL 1,000 ML IV SCH (11:50)
[2021-11-10 13:35] VITALS: BP_SYST 131
[2021-11-10 15:25] VITALS: BP_SYST 156
[2021-11-10 17:00] VITALS: BP_SYST 151
[2021-11-10 18:22] VITALS: BP_SYST 151
== END 2021-11-10 19:05 | disposition home or self-care (01) | DRG 872 ==
LOC: SED 22:24 → SMU 11-03 06:25
PROVIDERS: ADMIT Family Medicine; ATTEND Family Medicine
DX: A41.9 Sepsis, unspecified organism (principal); N39.0 Urinary tract infection, site not specified; I13.0 Hypertensive heart and chronic kidney disease with heart failure and stage 1 through stage 4 chronic kidney disease, or unspecified chronic kidney disease; Z68.43 Body mass index [BMI] 50.0-59.9, adult; I42.8 Other cardiomyopathies; D64.9 Anemia, unspecified; E66.01 Morbid (severe) obesity due to excess calories; N18.9 Chronic kidney disease, unspecified; M60.88 Other myositis, other site; I50.9 Heart failure, unspecified; J44.9 Chronic obstructive pulmonary disease, unspecified; G47.33 Obstructive sleep apnea (adult) (pediatric); Z20.822 Contact with and (suspected) exposure to COVID-19; E11.40 Type 2 diabetes mellitus with diabetic neuropathy, unspecified; E11.22 Type 2 diabetes mellitus with diabetic chronic kidney disease; Z87.891 Personal history of nicotine dependence; Z88.6 Allergy status to analgesic agent; Z79.899 Other long term (current) drug therapy; Z79.82 Long term (current) use of aspirin; Z95.0 Presence of cardiac pacemaker
CPT/HCPCS: 36415; 71045; 80048; 80053; 80307; 81003; 82085; 82550; 82962; 83605; 83880; 84484; 85025; 85610-TC; 85651-TC; 85730-TC; 86140; 87040; 87081; 87086; 93005; 94640; 94760; 96374; 96375; 99285; J0692; J0696; J1815; J1885; J2543; J3370; J7050; J7060; J7612; J7613

== ENCOUNTER 2021-11-16 10:25 | Emergency (ER) | payer OTHER, MEDICAID ==
--- NOTE | 2021-11-16 10:30 | NUR ---
Placed to room 01 and hooked up to monitor. Patient's vital signs stable.
--- NOTE | 2021-11-16 10:45 | NUR ---
Patient presents to ER with chest pain and low back pain. Patient states he has had pain for the past few days and is unrelieved. Upon assessment the patient is unable to sit up without pain and neds to lay down. No visible deformities noted or seen. Patient is alert and oriented to person, place, time and event. Skin is intact. Respirations are even and unlabored. Patient is on 3L/min via nasal cannula.
--- NOTE | 2021-11-16 11:00 | NUR ---
IV attempt in left AC, unable to obtain adequate blood return to collect for lab. Catheter tip intact, bleeding controlled.
[2021-11-16 11:30] VITALS: BP_SYST 142
--- NOTE | 2021-11-16 11:30 | NUR ---
Dr Tran at bedside to assess.
[2021-11-16] MEDS ORDERED: LIDOCAINE 2%, 20 ML MDV ONE (11:32)
[2021-11-16 11:59] LABS: BASOPHILS # (AUTO) 0.1 K/uL (0.0-0.2); BASOPHILS % (AUTO) 0.5 % (0.0-2.0); EOSINOPHILS # (AUTO) 0.1 K/uL (0.0-0.4); EOSINOPHILS % (AUTO) 0.9 % (0.0-4.0); HEMATOCRIT 30.3 % (36-54); HEMOGLOBIN 10.1 g/dL (14.0-18.0); LYMPHOCYTES # (AUTO) 0.7 K/uL (1.0-5.5); LYMPHOCYTES % (AUTO) 4.8 % (20.5-51.5); MEAN CORPUSCULAR HEMOGLOBIN 26 pg (27-31); MEAN CORPUSCULAR HGB CONC 33 % (32-36); MEAN CORPUSCULAR VOLUME 78 fL (79.0-98.0); MONOCYTES # (AUTO) 0.6 K/uL (0.0-1.0); MONOCYTES % (AUTO) 4.3 % (1.7-9.3); NEUTROPHILS # (AUTO) 12.1 K/uL (1.8-7.7); NEUTROPHILS % (AUTO) 89.5 % (40.0-70.0); PLATELET COUNT (AUTO) 156 K/uL (130-430); WHITE BLOOD COUNT (AUTO) 13.6 K/uL (4.8-10.8)
[2021-11-16 12:13] LABS: ANION GAP 8 (5-15); CALCIUM 9.2 mg/dL (8.4-11.0); CHLORIDE 97 mmol/L (98-107); CREATININE 1.57 mg/dL (0.55-1.30); GLUCOSE 178 mg/dL (70-99); POTASSIUM 4.9 mmol/L (3.5-5.1); SODIUM SERUM 133 mmol/L (136-145); UREA NITROGEN, BLOOD 24 mg/dL (8-21)
[2021-11-16 12:14] LABS: INR 1.1 (0.80-1.20)
[2021-11-16 12:17] LABS: GFR AFRICAN AMERICAN 60 mL/min (>90)
[2021-11-16 12:23] LABS: ALANINE AMINOTRANSFERASE 28 U/L (12-78); ALBUMIN 3.3 g/dL (3.4-4.8); ASPARTATE AMINOTRANSFERASE 31 U/L (10-37); TOTAL BILIRUBIN 0.5 mg/dL (0.0-1.0)
[2021-11-16] MEDS ORDERED: CEPH250C PO ×2 (13:09)
[2021-11-16] MEDS ORDERED: cefTRIAXone 1 GM in LIDOCAINE 1%, 20 ML MDV 2.1 ML IM ONE (13:15)
--- NOTE | 2021-11-16 16:35 | NUR ---
Patient given written and verbal discharge instructions and verbalizes understanding. ER MD discussed with patient the results and treatment provided. Patient in stable condition. ID arm band removed. Rx of given. Patient educated on pain management and to follow up with PMD. Pain Scale 0. Opportunity for questions provided and answered. Medication side effect fact sheet provided.
[2021-11-16 16:37] VITALS: BP_SYST 142
== END 2021-11-16 16:37 | disposition home or self-care (01) ==
LOC: SED 10:25
DX: R07.2 Precordial pain (principal); J45.909 Unspecified asthma, uncomplicated; Z88.5 Allergy status to narcotic agent; Z79.899 Other long term (current) drug therapy
CPT/HCPCS: 36415; 71045; 80053; 84484; 85025; 85610; 85730; 93005; 96372; 99285; J0696; J2001 ×2

== ENCOUNTER 2021-11-28 17:28 | Inpatient (IN) | payer OTHER, MEDICAID ==
[~2021-11-28] VITALS: Ht 167.6 cm; Wt 158.3 kg
[~2021-11-28 17:28] MED LIST changes: +CEPH250C PO
[2021-11-28 17:32] VITALS: BP_SYST 158
[2021-11-28 18:37] LABS: BASOPHILS # (AUTO) 0.1 K/uL (0.0-0.2); BASOPHILS % (AUTO) 0.6 % (0.0-2.0); EOSINOPHILS # (AUTO) 0.1 K/uL (0.0-0.4); EOSINOPHILS % (AUTO) 1.1 % (0.0-4.0); HEMATOCRIT 30.7 % (36-54); HEMOGLOBIN 10.2 g/dL (14.0-18.0); LYMPHOCYTES # (AUTO) 0.8 K/uL (1.0-5.5); LYMPHOCYTES % (AUTO) 6.7 % (20.5-51.5); MEAN CORPUSCULAR HEMOGLOBIN 26 pg (27-31); MEAN CORPUSCULAR HGB CONC 33 % (32-36); MEAN CORPUSCULAR VOLUME 77 fL (79.0-98.0); MONOCYTES # (AUTO) 0.5 K/uL (0.0-1.0); NEUTROPHILS % (AUTO) 87.6 % (40.0-70.0); PLATELET COUNT (AUTO) 165 K/uL (130-430); RED BLOOD CELL COUNT(AUTO) 3.97 MIL/uL (4.2-6.2); RED CELL DISTRIBUTION WIDTH 15.9 % (9.0-15.0); WHITE BLOOD COUNT (AUTO) 12.5 K/uL (4.8-10.8)
[2021-11-28 18:55] LABS: ANION GAP 6 (5-15); CHLORIDE 98 mmol/L (98-107); CREATININE 1.79 mg/dL (0.55-1.30); GLUCOSE 170 mg/dL (70-99); POTASSIUM 4.4 mmol/L (3.5-5.1); SODIUM SERUM 132 mmol/L (136-145); UREA NITROGEN, BLOOD 25 mg/dL (8-21)
[2021-11-28 18:59] LABS: GFR AFRICAN AMERICAN 51 mL/min (>90)
[2021-11-28 19:00] LABS: ALANINE AMINOTRANSFERASE 21 U/L (12-78); ALBUMIN 3.2 g/dL (3.4-4.8); ASPARTATE AMINOTRANSFERASE 19 U/L (10-37); TOTAL BILIRUBIN 0.1 mg/dL (0.0-1.0)
[2021-11-28 19:10] LABS: ALCOHOL, BLOOD < 3 mg/dL (<10)
[2021-11-28 19:40] LABS: BILIRUBIN,URINE NEGATIVE (NEGATIVE); CLARITY/URINE CLEAR (CLEAR); COLOR,URINE YELLOW (YELLOW); GLUCOSE,URINE NEGATIVE (NEGATIVE); KETONES,URINE NEGATIVE (NEGATIVE); LEUKOCYTE ESTERASE ,URINE NEGATIVE (NEGATIVE); NITRITE, URINE NEGATIVE (NEGATIVE); PROTEIN URINE 3+ (NEGATIVE); UROBILINOGEN,URINE 0.2 (0.2-1.0)
[2021-11-28 19:58] LABS: BLOOD, URINE TRACE (NEGATIVE)
[2021-11-28 20:00] LABS: WBC,URINE 0-3 /HPF (0-3)
[2021-11-28 20:01] LABS: BACTERIA,URINE FEW /HPF (None Seen)
[2021-11-28 20:02] LABS: BARBITURATE, URINE NEGATIVE (NEG <=200); BENZODIAZEPINE, URINE NEGATIVE (NEG <=150); CANNABINOID, URINE NEGATIVE (NEG <=50); COCAINE, URINE NEGATIVE (NEG <=150); METHAMPHETAMINES SCREEN,URINE NEGATIVE (NEG <=500); OPIATE, URINE NEGATIVE (NEG <=100); PHENCYCLIDINE SCREEN,URINE NEGATIVE (NEG <=25); UR TRICYCLIC ANTIDEPRESSANTS NEGATIVE (NEG <=300); URINE AMPHETAMINE NEGATIVE (NEG <=500); URINE METHADONE NEGATIVE (NEG <=200); URINE OXYCODONE SCREEN NEGATIVE (NEG <=100); URINE PROPOXYPHENE SCREEN NEGATIVE (NEG <=300)
[2021-11-28] MEDS ORDERED: PIPERACILLIN/TAZO 3.375 GM in NS 50 ML IV ONE (21:45)
[2021-11-28] MEDS ORDERED: PIPERACILLIN/TAZOBACTAM 3.375 GM/VIAL (ZOSYN) IV ONE (21:46)
[2021-11-28] MEDS ORDERED: INSULIN REGULAR, HUMAN 100 UNITS/ML, 10 ML VIAL (humuLIN R) SUBCUT PRN (22:15)
[2021-11-28] MEDS ORDERED: PANTOPRAZOLE SODIUM 40 MG TAB PO ONE (22:30)
[2021-11-28] MEDS ORDERED: MAGNESIUM OXIDE 400 MG TABLET PO ONE (22:30)
[2021-11-28] MEDS ORDERED: ARIPiprazole 5 MG TAB PO ONE (22:30)
[2021-11-28] MEDS ORDERED: ASPIRIN 81 MG TAB.CHEW PO ONE (22:30)
[2021-11-28] MEDS ORDERED: CARVEDILOL 6.25 MG TABLET (COREG) PO ONE (22:30)
[2021-11-28] MEDS ORDERED: NALOXONE HCL 0.4 MG/ML AMP (NARCAN) IVP PRN (23:15)
[2021-11-28] MEDS ORDERED: HYDROcodone/ACETAMIN 5-325 MG TAB (NORCO/ VICODIN) PO PRN (23:15)
[2021-11-28] MEDS: LevALBUTEROL HCL 1.25 MG/0.5 ML *CONC.* VIAL.NEB (XOPENEX CONC.) INH SCH (23:15)
[2021-11-28] MEDS ORDERED: LevALBUTEROL HCL 1.25 MG/0.5 ML *CONC.* VIAL.NEB (XOPENEX CONC.) INH PRN (23:15)
[2021-11-28] MEDS: CARVEDILOL 25 MG TABLET (COREG) PO SCH (23:30)
[2021-11-28] MEDS: hydrALAZINE HCL 10 MG TABLET PO SCH (23:31)
[2021-11-28] MEDS: INSULIN GLARGINE 100 UNITS/ML 10 ML VIAL SQ SCH (23:32)
[2021-11-28] MEDS: SIMVASTATIN 20 MG TABLET PO SCH (23:35)
[2021-11-29] MEDS ORDERED: PIPERACILLIN/TAZOBACTAM 3.375 GM/VIAL (ZOSYN) IV ONE (00:04)
[2021-11-29] MEDS: APIXABAN 2.5 MG TABLET PO SCH ×3 (00:08→20:47)
[2021-11-29] MEDS: GABAPENTIN 300 MG CAPSULE PO SCH ×4 (00:09→20:43)
[2021-11-29] MEDS: PIPERACILLIN/TAZO 3.375/DEX-IS 50 ML IV SCH ×5 (00:10→18:20)
[2021-11-29] MEDS: 0.45% NACL 1,000 ML IV SCH ×2 (00:16→14:55)
[2021-11-29 05:41] VITALS: BP_SYST 120
[2021-11-29 08:00] VITALS: BP_SYST 140
[2021-11-29] MEDS ORDERED: GABAPENTIN 100 MG CAPSULE PO ONE (09:00)
[2021-11-29] MEDS ORDERED: hydrALAZINE HCL 20 MG/ML VIAL IVP ONE (09:00)
[2021-11-29] MEDS ORDERED: CITALOPRAM HYDROBROMIDE 20 MG PO SCH (09:00)
[2021-11-29] MEDS ORDERED: APIXABAN 2.5 MG TABLET PO SCH (09:00)
[2021-11-29] MEDS: ARIPiprazole 5 MG TAB PO SCH (09:35)
[2021-11-29] MEDS: hydrALAZINE HCL 10 MG TABLET PO SCH ×3 (09:36→20:43)
[2021-11-29] MEDS: INSULIN GLARGINE 100 UNITS/ML 10 ML VIAL SQ SCH ×2 (09:41→20:57)
[2021-11-29] MEDS: ASPIRIN 81 MG TAB.CHEW PO SCH (09:43)
[2021-11-29] MEDS: CARVEDILOL 25 MG TABLET (COREG) PO SCH ×2 (09:44→20:43)
[2021-11-29] MEDS: PANTOPRAZOLE SODIUM 40 MG TAB PO SCH (09:44)
[2021-11-29] MEDS: MAGNESIUM OXIDE 400 MG TABLET PO SCH (09:44)
[2021-11-29] MEDS: POLYETHYLENE GLYCOL 3350, 17 GM/ POWD.PACK PO SCH (09:47)
[2021-11-29] MEDS ORDERED: OMEGA-3/DHA/EPA/FISH OIL 1 GM CAPSULE PO ONE (10:15)
[2021-11-29] MEDS ORDERED: CITALOPRAM HYDROBROMIDE 20 MG TABLET PO ONE (10:15)
[2021-11-29] MEDS ORDERED: NYSTATIN 15 GM TOPICAL POWDER TP ONE (11:00)
[2021-11-29] MEDS: INSULIN REGULAR, HUMAN 100 UNITS/ML, 10 ML VIAL (humuLIN R) SUBCUT PRN ×3 (12:13→20:59)
[2021-11-29 19:30] VITALS: BP_SYST 125
[2021-11-29] MEDS: SIMVASTATIN 20 MG TABLET PO SCH (20:43)
[2021-11-29] MEDS ORDERED: SIMVASTATIN 20 MG TABLET PO SCH (21:00)
[2021-11-29] MEDS: ACETAMINOPHEN 325 MG TABLET PO PRN (21:40)
[2021-11-30] MEDS: PIPERACILLIN/TAZO 3.375/DEX-IS 50 ML IV SCH ×4 (00:43→17:09)
[2021-11-30 00:50] VITALS: BP_SYST 133
[2021-11-30] MEDS: 0.45% NACL 1,000 ML IV SCH ×2 (07:35→12:08)
[2021-11-30] MEDS: INSULIN REGULAR, HUMAN 100 UNITS/ML, 10 ML VIAL (humuLIN R) SUBCUT PRN ×3 (07:40→16:39)
[2021-11-30 08:51] VITALS: BP_SYST 124
[2021-11-30] MEDS ORDERED: NON-FORMULARY MEDICATION (Dulaglutide (Trulicity) 1.5 MG) SQ SCH (09:00)
[2021-11-30] MEDS: POLYETHYLENE GLYCOL 3350, 17 GM/ POWD.PACK PO SCH (09:00)
[2021-11-30] MEDS: MAGNESIUM OXIDE 400 MG TABLET PO SCH (09:03)
[2021-11-30] MEDS: PANTOPRAZOLE SODIUM 40 MG TAB PO SCH (09:03)
[2021-11-30] MEDS: CITALOPRAM HYDROBROMIDE 20 MG TABLET PO SCH (09:03)
[2021-11-30] MEDS: ARIPiprazole 5 MG TAB PO SCH (09:04)
[2021-11-30] MEDS: ASPIRIN 81 MG TAB.CHEW PO SCH (09:04)
[2021-11-30] MEDS: GABAPENTIN 300 MG CAPSULE PO SCH ×3 (09:04→21:59)
[2021-11-30] MEDS: OMEGA-3/DHA/EPA/FISH OIL 1 GM CAPSULE PO SCH (09:04)
[2021-11-30] MEDS: hydrALAZINE HCL 10 MG TABLET PO SCH ×3 (09:05→21:59)
[2021-11-30] MEDS: CARVEDILOL 25 MG TABLET (COREG) PO SCH ×2 (09:05→22:00)
[2021-11-30] MEDS: ERGOCALCIFEROL 8000 UNITS/ML ORAL SOLUTION, 60 ML BOTTLE PO SCH (09:06)
[2021-11-30] MEDS: APIXABAN 2.5 MG TABLET PO SCH ×2 (09:10→21:59)
[2021-11-30] MEDS: NYSTATIN 15 GM TOPICAL POWDER TP SCH (09:10)
[2021-11-30] MEDS: INSULIN GLARGINE 100 UNITS/ML 10 ML VIAL SQ SCH ×2 (09:20→22:06)
[2021-11-30 16:33] VITALS: BP_SYST 128
[2021-11-30 19:35] VITALS: BP_SYST 122
[2021-11-30] MEDS: SIMVASTATIN 20 MG TABLET PO SCH (21:59)
[2021-12-01] MEDS: PIPERACILLIN/TAZO 3.375/DEX-IS 50 ML IV SCH ×4 (00:18→18:13)
[2021-12-01] MEDS: ACETAMINOPHEN 325 MG TABLET PO PRN (01:43)
[2021-12-01 01:45] VITALS: BP_SYST 117; BP_SYST 140
[2021-12-01] MEDS: INSULIN REGULAR, HUMAN 100 UNITS/ML, 10 ML VIAL (humuLIN R) SUBCUT PRN ×4 (06:59→22:22)
[2021-12-01 07:01] LABS: BASOPHILS % (AUTO) 0.5 % (0.0-2.0); EOSINOPHILS # (AUTO) 0.3 K/uL (0.0-0.4); EOSINOPHILS % (AUTO) 3.4 % (0.0-4.0); HEMATOCRIT 28.6 % (36-54); HEMOGLOBIN 9.5 g/dL (14.0-18.0); LYMPHOCYTES # (AUTO) 1.3 K/uL (1.0-5.5); LYMPHOCYTES % (AUTO) 15.2 % (20.5-51.5); MEAN CORPUSCULAR HEMOGLOBIN 26 pg (27-31); MEAN CORPUSCULAR HGB CONC 33 % (32-36); MEAN CORPUSCULAR VOLUME 77 fL (79.0-98.0); MONOCYTES # (AUTO) 0.4 K/uL (0.0-1.0); MONOCYTES % (AUTO) 4.3 % (1.7-9.3); NEUTROPHILS # (AUTO) 6.4 K/uL (1.8-7.7); NEUTROPHILS % (AUTO) 76.6 % (40.0-70.0); PLATELET COUNT (AUTO) 154 K/uL (130-430); WHITE BLOOD COUNT (AUTO) 8.4 K/uL (4.8-10.8)
[2021-12-01 08:00] VITALS: BP_SYST 149
[2021-12-01 08:32] LABS: C-REACTIVE PROTEIN QUANT 4.2 mg/dL (0-0.5)
[2021-12-01] MEDS: NYSTATIN 15 GM TOPICAL POWDER TP SCH (08:38)
[2021-12-01] MEDS: CITALOPRAM HYDROBROMIDE 20 MG TABLET PO SCH (08:39)
[2021-12-01] MEDS: ARIPiprazole 5 MG TAB PO SCH (08:39)
[2021-12-01] MEDS: hydrALAZINE HCL 10 MG TABLET PO SCH ×3 (08:40→22:17)
[2021-12-01] MEDS: MAGNESIUM OXIDE 400 MG TABLET PO SCH (08:41)
[2021-12-01] MEDS: GABAPENTIN 300 MG CAPSULE PO SCH ×3 (08:41→22:07)
[2021-12-01] MEDS: CARVEDILOL 25 MG TABLET (COREG) PO SCH ×2 (08:41→22:17)
[2021-12-01] MEDS: ASPIRIN 81 MG TAB.CHEW PO SCH (08:41)
[2021-12-01] MEDS: PANTOPRAZOLE SODIUM 40 MG TAB PO SCH (08:41)
[2021-12-01] MEDS: POLYETHYLENE GLYCOL 3350, 17 GM/ POWD.PACK PO SCH (08:42)
[2021-12-01] MEDS: APIXABAN 2.5 MG TABLET PO SCH ×2 (08:45→22:21)
[2021-12-01] MEDS: INSULIN GLARGINE 100 UNITS/ML 10 ML VIAL SQ SCH ×2 (08:46→22:22)
[2021-12-01] MEDS: OMEGA-3/DHA/EPA/FISH OIL 1 GM CAPSULE PO SCH (08:50)
[2021-12-01 09:52] LABS: ERYTHROCYTE SEDIMENTATION RATE 82 MM/HR (0-15)
[2021-12-01 12:00] VITALS: BP_SYST 129
[2021-12-01 16:00] VITALS: BP_SYST 136
[2021-12-01] MEDS: 0.45% NACL 1,000 ML IV SCH (18:19)
[2021-12-01 20:00] VITALS: BP_SYST 108
[2021-12-01] MEDS: SIMVASTATIN 20 MG TABLET PO SCH (22:07)
[2021-12-02] VITALS (7 sets, daily range): BP systolic 110–138
[2021-12-02] MEDS: PIPERACILLIN/TAZO 3.375/DEX-IS 50 ML IV SCH ×5 (00:04→23:50)
[2021-12-02] MEDS: INSULIN REGULAR, HUMAN 100 UNITS/ML, 10 ML VIAL (humuLIN R) SUBCUT PRN ×4 (06:53→20:26)
[2021-12-02] MEDS: LevALBUTEROL HCL 1.25 MG/0.5 ML *CONC.* VIAL.NEB (XOPENEX CONC.) INH SCH ×3 (07:12→19:25)
[2021-12-02] MEDS: GABAPENTIN 300 MG CAPSULE PO SCH ×3 (09:10→20:20)
[2021-12-02] MEDS: ASPIRIN 81 MG TAB.CHEW PO SCH (09:10)
[2021-12-02] MEDS: APIXABAN 2.5 MG TABLET PO SCH ×2 (09:14→20:23)
[2021-12-02] MEDS: INSULIN GLARGINE 100 UNITS/ML 10 ML VIAL SQ SCH ×2 (09:15→20:24)
[2021-12-02] MEDS: PANTOPRAZOLE SODIUM 40 MG TAB PO SCH (09:15)
[2021-12-02] MEDS: CITALOPRAM HYDROBROMIDE 20 MG TABLET PO SCH (09:15)
[2021-12-02] MEDS: MAGNESIUM OXIDE 400 MG TABLET PO SCH (09:15)
[2021-12-02] MEDS: OMEGA-3/DHA/EPA/FISH OIL 1 GM CAPSULE PO SCH (09:15)
[2021-12-02] MEDS: CARVEDILOL 25 MG TABLET (COREG) PO SCH ×2 (09:16→20:20)
[2021-12-02] MEDS: hydrALAZINE HCL 10 MG TABLET PO SCH ×3 (09:16→20:20)
[2021-12-02] MEDS: POLYETHYLENE GLYCOL 3350, 17 GM/ POWD.PACK PO SCH (09:16)
[2021-12-02] MEDS: ARIPiprazole 5 MG TAB PO SCH (09:17)
[2021-12-02] MEDS: 0.45% NACL 1,000 ML IV SCH (12:49)
[2021-12-02] MEDS: NYSTATIN 15 GM TOPICAL POWDER TP SCH (13:26)
[2021-12-02] MEDS: SIMVASTATIN 20 MG TABLET PO SCH (20:21)
[2021-12-03] MEDS: LevALBUTEROL HCL 1.25 MG/0.5 ML *CONC.* VIAL.NEB (XOPENEX CONC.) INH SCH ×4 (01:00→19:23)
[2021-12-03 02:13] VITALS: BP_SYST 144
[2021-12-03] MEDS: 0.45% NACL 1,000 ML IV SCH ×2 (06:24→21:46)
[2021-12-03] MEDS: PIPERACILLIN/TAZO 3.375/DEX-IS 50 ML IV SCH ×3 (06:26→18:07)
[2021-12-03] MEDS: INSULIN REGULAR, HUMAN 100 UNITS/ML, 10 ML VIAL (humuLIN R) SUBCUT PRN ×3 (06:36→21:45)
[2021-12-03] MEDS: APIXABAN 2.5 MG TABLET PO SCH ×2 (08:44→21:39)
[2021-12-03] MEDS: INSULIN GLARGINE 100 UNITS/ML 10 ML VIAL SQ SCH ×2 (08:44→21:43)
[2021-12-03] MEDS: ASPIRIN 81 MG TAB.CHEW PO SCH (08:45)
[2021-12-03] MEDS: ARIPiprazole 5 MG TAB PO SCH (08:45)
[2021-12-03] MEDS: hydrALAZINE HCL 10 MG TABLET PO SCH ×3 (08:46→21:36)
[2021-12-03] MEDS: CARVEDILOL 25 MG TABLET (COREG) PO SCH ×2 (08:46→21:37)
[2021-12-03] MEDS: MAGNESIUM OXIDE 400 MG TABLET PO SCH (08:46)
[2021-12-03] MEDS: POLYETHYLENE GLYCOL 3350, 17 GM/ POWD.PACK PO SCH (08:47)
[2021-12-03] MEDS: PANTOPRAZOLE SODIUM 40 MG TAB PO SCH (08:47)
[2021-12-03] MEDS: OMEGA-3/DHA/EPA/FISH OIL 1 GM CAPSULE PO SCH (08:47)
[2021-12-03] MEDS: CITALOPRAM HYDROBROMIDE 20 MG TABLET PO SCH (08:47)
[2021-12-03] MEDS: GABAPENTIN 300 MG CAPSULE PO SCH ×3 (08:47→21:35)
[2021-12-03 08:56] VITALS: BP_SYST 122
[2021-12-03] MEDS: NYSTATIN 15 GM TOPICAL POWDER TP SCH (08:57)
[2021-12-03 12:40] VITALS: BP_SYST 133
[2021-12-03] MEDS: ERGOCALCIFEROL 8000 UNITS/ML ORAL SOLUTION, 60 ML BOTTLE PO SCH (12:59)
[2021-12-03 16:27] VITALS: BP_SYST 125
[2021-12-03 19:20] VITALS: BP_SYST 122
[2021-12-03 20:00] VITALS: BP_SYST 124
[2021-12-03] MEDS: SIMVASTATIN 20 MG TABLET PO SCH (21:37)
[2021-12-04] MEDS: PIPERACILLIN/TAZO 3.375/DEX-IS 50 ML IV SCH ×4 (00:47→17:33)
[2021-12-04] MEDS: 0.45% NACL 1,000 ML IV SCH (00:47)
[2021-12-04] MEDS: LevALBUTEROL HCL 1.25 MG/0.5 ML *CONC.* VIAL.NEB (XOPENEX CONC.) INH SCH ×5 (01:00→19:50)
[2021-12-04 08:00] VITALS: BP_SYST 122
[2021-12-04] MEDS: POLYETHYLENE GLYCOL 3350, 17 GM/ POWD.PACK PO SCH (09:00)
[2021-12-04] MEDS: CITALOPRAM HYDROBROMIDE 20 MG TABLET PO SCH (09:21)
[2021-12-04] MEDS: PANTOPRAZOLE SODIUM 40 MG TAB PO SCH (09:21)
[2021-12-04] MEDS: ASPIRIN 81 MG TAB.CHEW PO SCH (09:21)
[2021-12-04] MEDS: CARVEDILOL 25 MG TABLET (COREG) PO SCH (09:21)
[2021-12-04] MEDS: MAGNESIUM OXIDE 400 MG TABLET PO SCH (09:21)
[2021-12-04] MEDS: GABAPENTIN 300 MG CAPSULE PO SCH ×2 (09:21→16:01)
[2021-12-04] MEDS: hydrALAZINE HCL 10 MG TABLET PO SCH ×2 (09:22→16:03)
[2021-12-04] MEDS: OMEGA-3/DHA/EPA/FISH OIL 1 GM CAPSULE PO SCH (09:22)
[2021-12-04] MEDS: ARIPiprazole 5 MG TAB PO SCH (09:23)
[2021-12-04] MEDS: APIXABAN 2.5 MG TABLET PO SCH (09:24)
[2021-12-04] MEDS: INSULIN GLARGINE 100 UNITS/ML 10 ML VIAL SQ SCH (09:25)
[2021-12-04] MEDS: NYSTATIN 15 GM TOPICAL POWDER TP SCH (09:40)
[2021-12-04 11:35] VITALS: BP_SYST 134
[2021-12-04 12:05] VITALS: BP_SYST 134
[2021-12-04 16:40] VITALS: BP_SYST 130
[2021-12-04] MEDS: INSULIN REGULAR, HUMAN 100 UNITS/ML, 10 ML VIAL (humuLIN R) SUBCUT PRN (17:38)
[2021-12-04 18:53] VITALS: BP_SYST 130
[2021-12-04 19:50] VITALS: BP_SYST 146
== END 2021-12-04 20:35 | disposition home or self-care (01) | DRG 864 ==
LOC: SED 17:28 → STU 22:12
PROVIDERS: ADMIT Family Medicine; ATTEND Family Medicine
PROC: 5A09357 Assistance with Respiratory Ventilation, Less than 24 Consecutive Hours, Continuous Positive Airway Pressure (ICD-10-PCS; principal; 2021-11-29)
PROC: 5A09457 Assistance with Respiratory Ventilation, 24-96 Consecutive Hours, Continuous Positive Airway Pressure (ICD-10-PCS; 2021-11-30)
PROC: 5A09357 Assistance with Respiratory Ventilation, Less than 24 Consecutive Hours, Continuous Positive Airway Pressure (ICD-10-PCS; 2021-12-02)
PROC: 5A09357 Assistance with Respiratory Ventilation, Less than 24 Consecutive Hours, Continuous Positive Airway Pressure (ICD-10-PCS; 2021-12-03)
PROC: 5A09357 Assistance with Respiratory Ventilation, Less than 24 Consecutive Hours, Continuous Positive Airway Pressure (ICD-10-PCS; 2021-12-04)
DX: R50.9 Fever, unspecified (principal); I42.8 Other cardiomyopathies; D84.81 Immunodeficiency due to conditions classified elsewhere; I13.0 Hypertensive heart and chronic kidney disease with heart failure and stage 1 through stage 4 chronic kidney disease, or unspecified chronic kidney disease; Z68.43 Body mass index [BMI] 50.0-59.9, adult; N18.9 Chronic kidney disease, unspecified; Z20.822 Contact with and (suspected) exposure to COVID-19; G47.33 Obstructive sleep apnea (adult) (pediatric); R53.1 Weakness; E11.22 Type 2 diabetes mellitus with diabetic chronic kidney disease; E66.01 Morbid (severe) obesity due to excess calories; J45.909 Unspecified asthma, uncomplicated; I50.9 Heart failure, unspecified; E11.40 Type 2 diabetes mellitus with diabetic neuropathy, unspecified; Z88.6 Allergy status to analgesic agent; Z79.899 Other long term (current) drug therapy; Z87.891 Personal history of nicotine dependence; Z86.14 Personal history of Methicillin resistant Staphylococcus aureus infection; Z79.82 Long term (current) use of aspirin; I25.2 Old myocardial infarction; Z95.0 Presence of cardiac pacemaker
CPT/HCPCS: 36415; 71045; 80053; 80307; 81000; 82550; 82962; 83605; 83880; 84484; 85025; 85651-TC; 86038; 86140; 86592; 86635; 87040; 87081; 87086; 93005; 94640; 94660; 96365; 99285; G0378; G0482; J1815; J2543; J7612

== ENCOUNTER 2022-12-08 08:28 | Inpatient (IN) | payer OTHER, MEDICAID ==
[~2022-12-08] VITALS: Ht 167.6 cm; Wt 163.3 kg
[~2022-12-08 08:28] MED LIST changes: -CEPH250C PO; -HYDR-3917 PO; +SIMV-343 PO; -SIMV20TA2 PO
--- NOTE | 2022-12-08 08:30 | NUR ---
Placed in room 03 . Placed on monitor tech, blood pressure machine and pulse oximeter. To gown for exam. Side rails up. Report given to SMITA PETTY.
[2022-12-08 08:33] VITALS: BP_SYST 125
--- NOTE | 2022-12-08 08:33 | NUR ---
ER DR. HESS EXAMINING PT
[2022-12-08] MEDS ORDERED: FUROSEMIDE 100 MG/10 ML VIAL IVP ONE (08:45)
--- NOTE | 2022-12-08 08:55 | NUR ---
BLOOD OBTAINED AND TAKEN TO LAB.
[2022-12-08 09:04] LABS: BASOPHILS # (AUTO) 0.1 K/uL (0.0-0.2); EOSINOPHILS # (AUTO) 0.2 K/uL (0.0-0.4); EOSINOPHILS % (AUTO) 2.5 % (0.0-4.0); HEMATOCRIT 33.8 % (36-54); HEMOGLOBIN 11.2 g/dL (14.0-18.0); LYMPHOCYTES % (AUTO) 10.5 % (20.5-51.5); MEAN CORPUSCULAR HEMOGLOBIN 26 pg (27-31); MEAN CORPUSCULAR HGB CONC 33 % (32-36); MEAN CORPUSCULAR VOLUME 77 fL (79.0-98.0); MONOCYTES # (AUTO) 0.4 K/uL (0.0-1.0); MONOCYTES % (AUTO) 4.9 % (1.7-9.3); NEUTROPHILS # (AUTO) 7.4 K/uL (1.8-7.7); NEUTROPHILS % (AUTO) 81.1 % (40.0-70.0); PLATELET COUNT (AUTO) 141 K/uL (130-430); RED BLOOD CELL COUNT(AUTO) 4.37 MIL/uL (4.2-6.2); RED CELL DISTRIBUTION WIDTH 16.8 % (9.0-15.0); WHITE BLOOD COUNT (AUTO) 9.2 K/uL (4.8-10.8)
[2022-12-08 09:21] LABS: ALANINE AMINOTRANSFERASE 24 U/L (12-78); ALBUMIN 3.4 g/dL (3.4-4.8); ANION GAP 9 (5-15); ASPARTATE AMINOTRANSFERASE 23 U/L (10-37); CALCIUM 8.3 mg/dL (8.4-11.0); CHLORIDE 96 mmol/L (98-107); CREATININE 2.16 mg/dL (0.55-1.30); GFR AFRICAN AMERICAN 41 mL/min (>90); GLUCOSE 231 mg/dL (70-99); TOTAL BILIRUBIN 0.6 mg/dL (0.0-1.0); UREA NITROGEN, BLOOD 37 mg/dL (8-21)
--- NOTE | 2022-12-08 09:30 | NUR ---
# 20 gauge angiocath placed to LEFT HAND. Use of asceptic technique. Opsite placed over site. Blood return noted. Flushed with 10 cc of normal saline. No evidence of infiltration noted. Patient tolerated well.
--- NOTE | 2022-12-08 10:14 | NUR ---
MORPHINE 4 MG IVP GIVEN FOR ARM PAIN 03/24
[2022-12-08] MEDS ORDERED: MORPHINE 4 MG INJ. 4 MG/ML VIAL IVP ONE (10:15)
--- NOTE | 2022-12-08 10:45 | NUR ---
DR. HESS AT BEDSIDE TO DISCUSS POC.
--- NOTE | 2022-12-08 11:04 | NUR ---
Admit bed requested Patient will be admitted to care of . Admitted to TELEMETRY unit. Diagnosis ACUTE EXACERBATION CORONARY HEART FAILURE Inpatient (Yes or No) YES Observation (Yes or No) NO Orientation concerns or request close to nursing station (Yes or No) NO Covid Status PENDING On vent or bipap NO Isolation requirements PENDING Needs a sitter NO From Home (Yes or if No enter name of facility) YES Requires Dialysis (Yes or No) NO Med Rec Completed (Yes of No) YES
[2022-12-08] MEDS ORDERED: LYR50 PO (11:58)
[2022-12-08] MEDS ORDERED: TAMS-11 PO (11:58)
[2022-12-08] MEDS ORDERED: FURO80TA86 PO (11:58)
[2022-12-08] MEDS ORDERED: ISOS20TA8 PO (11:58)
[2022-12-08] MEDS ORDERED: MORP30TA59 PO (11:58)
--- NOTE | 2022-12-08 12:55 | NUR ---
Patient will be admitted to care of SMITA LEE. Admitted to TELEMETRY unit. Will go to room 125A. Belongings list completed. Complete and up to date summary report printed. SBAR report to be given at bedside with opportunity for questions.
--- NOTE | 2022-12-08 13:00 | NUR ---
ADMISSION NOTE Received patient from ER via gurney. Patient admitted with diagnosis of CHF. Patient is awake, alert, oriented X . Patient oriented to hospital room, call light, toileting, pain management and safety-teach back done. Patient informed that JESUS will be RN nurse and that their room number is 125A. Personal belongings checked and Belongings List documented. Call light within reach.
[2022-12-08] MEDS ORDERED: levalbuterol HCL 0.63 MG/3 ML VIAL.NEB INH PRN (14:00)
[2022-12-08] MEDS ORDERED: LIDOCAINE PATCH 5% 1 EA TP ONE (14:00)
[2022-12-08] MEDS ORDERED: PANTOPRAZOLE SODIUM 40 MG TAB PO ONE (14:00)
[2022-12-08] MEDS: hydrALAZINE HCL 10 MG TABLET PO SCH ×2 (14:45→21:24)
[2022-12-08] MEDS: ISOSORBIDE DINITRATE 20 MG TABLET (ISORDIL) PO SCH ×2 (14:45→21:22)
[2022-12-08] MEDS: MORPHINE SULFATE 30 MG TABLET.SA PO SCH ×2 (14:46→21:27)
[2022-12-08 14:54] VITALS: BP_SYST 132
[2022-12-08 16:00] VITALS: BP_SYST 134
--- NOTE | 2022-12-08 17:18 | NUR ---
rt notes 1656 SWITCHED TO 2l NC, ADDED EXTENSION TUBING DUE TO PT DE SATTING WHEN GOING TO THE BATHROOM. SATURATION 99%. WILL MONITOR Addendum: 12/08/22 at 1721 by Yennifer Benitez RT Amended: Links added.
[2022-12-08 17:25] VITALS: BP_SYST 132
[2022-12-08] MEDS: INSULIN REGULAR, HUMAN 100 UNITS/ML, 3 ML VIAL (humuLIN R) SUBCUT PRN ×2 (17:36→21:43)
--- NOTE | 2022-12-08 19:15 | NUR ---
CHANGE OF SHIFT; Dr. Martin still here and order BIPAP at night time, endorsed by day shift. new admit for DX Exacerbation of CHF. no distress. call light at bedside.
[2022-12-08 20:10] VITALS: BP_SYST 149
[2022-12-08] MEDS: FUROSEMIDE 40 MG/4 ML VIAL IVP SCH (21:19)
[2022-12-08] MEDS: PREGABALIN 25 MG CAPSULE (LYRICA) PO SCH (21:25)
[2022-12-08] MEDS: APIXABAN 2.5 MG TABLET PO SCH (21:41)
[2022-12-08] MEDS: INSULIN GLARGINE 100 UNITS/ML, 10 ML VIAL SQ SCH (21:42)
--- NOTE | 2022-12-08 21:45 | NUR ---
NOTES: all due medications given. BS checked 210, with sliding scale coverage given and Lantus. hs snack give. pt. awake, alert. on sitting position, O2 @ 2 liters/per nasal canula. denies any chest pain, still gets short of breath on exertion. noted swelling on lower extremities and generalized. on equipment monitor phototypesetting and shows sinus rhythm.
--- NOTE | 2022-12-08 23:00 | NUR ---
NOTES: pt. placed on BIPAP by RT. pt. ambulated to the restroom x3 after IV Lasix given.
[2022-12-08] MEDS: levalbuterol HCL 0.63 MG/3 ML VIAL.NEB INH SCH (23:29)
--- NOTE | 2022-12-09 02:00 | NUR ---
NOTES: pt. sleeping when made rounds. condition observed.
[2022-12-09 04:21] VITALS: BP_SYST 159
--- NOTE | 2022-12-09 04:22 | NUR ---
NOTES: pt. off BIPAP and reconnected to nasal canula. pt. sitting up in bed. VS rechecked.
[2022-12-09 06:30] LABS: ALBUMIN 3.7 g/dL (3.4-4.8); CREATININE 2.49 mg/dL (0.55-1.30); TOTAL BILIRUBIN 0.7 mg/dL (0.0-1.0)
[2022-12-09] MEDS: INSULIN REGULAR, HUMAN 100 UNITS/ML, 3 ML VIAL (humuLIN R) SUBCUT PRN ×4 (06:37→20:49)
--- NOTE | 2022-12-09 06:45 | NUR ---
CLOSING NOTES; BS checked 167, with sliding scale coverage. IV site lock. O2 continuous. for further assistance. will endorse to incoming shift.
[2022-12-09] MEDS: levalbuterol HCL 0.63 MG/3 ML VIAL.NEB INH SCH ×2 (07:10→15:38)
[2022-12-09 08:22] VITALS: BP_SYST 135
[2022-12-09] MEDS: ARIPiprazole 5 MG TAB PO SCH (08:35)
[2022-12-09] MEDS: TAMSULOSIN HCL 0.4 MG CAP PO SCH (08:35)
[2022-12-09] MEDS: PREGABALIN 25 MG CAPSULE (LYRICA) PO SCH ×2 (08:35→20:46)
[2022-12-09] MEDS: ISOSORBIDE DINITRATE 20 MG TABLET (ISORDIL) PO SCH ×3 (08:35→20:46)
[2022-12-09] MEDS: ASPIRIN 81 MG TAB.CHEW PO SCH (08:36)
[2022-12-09] MEDS: hydrALAZINE HCL 10 MG TABLET PO SCH ×3 (08:36→20:48)
[2022-12-09] MEDS: PANTOPRAZOLE SODIUM 40 MG TAB PO SCH (08:36)
[2022-12-09] MEDS: MAGNESIUM OXIDE 400 MG TABLET PO SCH (08:36)
[2022-12-09] MEDS: MORPHINE SULFATE 30 MG TABLET.SA PO SCH ×3 (08:37→20:48)
[2022-12-09] MEDS: FUROSEMIDE 40 MG/4 ML VIAL IVP SCH ×2 (08:37→20:46)
[2022-12-09] MEDS: POLYETHYLENE GLYCOL 3350, 17 GM/ POWD.PACK PO SCH (08:38)
[2022-12-09] MEDS: LIDOCAINE PATCH 5% 1 EA TP SCH (08:40)
[2022-12-09] MEDS: NYSTATIN 15 GM TOPICAL POWDER TP SCH (08:41)
[2022-12-09] MEDS: APIXABAN 2.5 MG TABLET PO SCH ×2 (08:44→20:47)
[2022-12-09] MEDS ORDERED: NYSTOP TP SCH (09:00)
[2022-12-09] MEDS: INSULIN GLARGINE 100 UNITS/ML, 10 ML VIAL SQ SCH ×2 (09:28→20:49)
[2022-12-09 11:45] VITALS: BP_SYST 139
[2022-12-09] MEDS ORDERED: POTASSIUM CHLORIDE 20 MEQ TAB.PRT.SR PO ONE (14:45)
[2022-12-09 15:50] VITALS: BP_SYST 149
--- NOTE | 2022-12-09 17:53 | NUR ---
Dietitian Recommendations * CCHO, Cardiac diet * Prune juice d/t D meals * RD provided diabetic and heart-healthy MNT LP, MS, RD Please refer to Nutrition Assessment for details. Addendum: 12/09/22 at [address] Amended: Links added.
[2022-12-09 20:00] VITALS: BP_SYST 134
--- NOTE | 2022-12-09 23:51 | NUR ---
RT NOTES. PY HAS REQUESTED TO BE PLACED ON THE CPAP LATER ON AND WILL CALL OR PLACE ON THEMSELVES. WILL CONTINUE TO MONITOR.
[2022-12-10] VITALS: BP_SYST 112
[2022-12-10 06:12] LABS: ALBUMIN 3.9 g/dL (3.4-4.8); CALCIUM 8.7 mg/dL (8.4-11.0); CREATININE 2.47 mg/dL (0.55-1.30); TOTAL BILIRUBIN 0.8 mg/dL (0.0-1.0)
[2022-12-10] MEDS: INSULIN REGULAR, HUMAN 100 UNITS/ML, 3 ML VIAL (humuLIN R) SUBCUT PRN ×3 (06:41→17:29)
[2022-12-10] MEDS: levalbuterol HCL 0.63 MG/3 ML VIAL.NEB INH SCH ×2 (07:13→15:00)
[2022-12-10 07:45] VITALS: BP_SYST 161
--- NOTE | 2022-12-10 07:45 | NUR ---
OPENING NOTES Patient laying in bed listening to music, A/O x4 Montenegrin speaking. Patient Breathing even and unlabored 2lpm nasal cannula. No pain, no distress, no SOB. Patient is currently on a CCHO diet. Patient has RH 22g. Patient has BRP. Bed is locked in lowest position. Call light within reach, all needs met, will continue with plan of care.
[2022-12-10] MEDS ORDERED: POTASSIUM CHLORIDE 20 MEQ TAB.PRT.SR PO SCH (09:00)
[2022-12-10] MEDS: ARIPiprazole 5 MG TAB PO SCH (09:11)
[2022-12-10] MEDS: ASPIRIN 81 MG TAB.CHEW PO SCH (09:11)
[2022-12-10] MEDS: POLYETHYLENE GLYCOL 3350, 17 GM/ POWD.PACK PO SCH (09:12)
[2022-12-10] MEDS: PANTOPRAZOLE SODIUM 40 MG TAB PO SCH (09:13)
[2022-12-10] MEDS: PREGABALIN 25 MG CAPSULE (LYRICA) PO SCH (09:13)
[2022-12-10] MEDS: ISOSORBIDE DINITRATE 20 MG TABLET (ISORDIL) PO SCH ×2 (09:14→17:24)
[2022-12-10] MEDS: MAGNESIUM OXIDE 400 MG TABLET PO SCH (09:15)
[2022-12-10] MEDS: FUROSEMIDE 40 MG/4 ML VIAL IVP SCH (09:16)
[2022-12-10] MEDS: hydrALAZINE HCL 10 MG TABLET PO SCH (09:18)
[2022-12-10] MEDS: LIDOCAINE PATCH 5% 1 EA TP SCH (09:19)
[2022-12-10] MEDS: TAMSULOSIN HCL 0.4 MG CAP PO SCH (09:19)
[2022-12-10] MEDS: APIXABAN 2.5 MG TABLET PO SCH (09:20)
[2022-12-10] MEDS: MORPHINE SULFATE 30 MG TABLET.SA PO SCH ×2 (09:23→17:24)
[2022-12-10] MEDS: INSULIN GLARGINE 100 UNITS/ML, 10 ML VIAL SQ SCH (09:39)
[2022-12-10] MEDS: NYSTATIN 15 GM TOPICAL POWDER TP SCH (09:55)
[2022-12-10 11:37] VITALS: BP_SYST 162
--- NOTE | 2022-12-10 12:20 | NUR ---
NOON NOTES Took patient off of the nasal cannula and put him onto the vitals machine after 10 minutes patients o2 was 87%-89%. Put o2 machine back onto patient.
[2022-12-10] MEDS ORDERED: hydrALAZINE HCL 25 MG TABLET PO SCH (14:00)
--- NOTE | 2022-12-10 14:07 | NUR ---
Closing note Patient laying in bed, A/O x4 Faroese speaking. Patient Breathing even and unlabored 2lpm nasal cannula. No pain, no distress, no SOB. Patient is currently on a CCHO diet. Patient has RH 22g. Patient has BRP. Bed is locked in lowest position. Call light within reach, all needs met, will endorse to next nurse.
--- NOTE | 2022-12-10 15:25 | NUR ---
O2 SAT- PATIENT O2 SAT IN ROOM AIR IS 86-88%.
--- NOTE | 2022-12-10 15:33 | NUR ---
CM: Home Oxygen: faxed order and referral package to [facility] [phone], tel . Addendum: 12/10/22 at 1606 by Liliane Coyne RN Per [facility]: the concentrator and portable tank will be delivered to bedside by 6 pm today. Milena Giordano RN aware.
--- NOTE | 2022-12-10 15:45 | NUR ---
NOTES- PT SLEEPING AT THIS TIME.
[2022-12-10 16:26] VITALS: BP_SYST 142
[2022-12-10 17:04] VITALS: BP_SYST 142
--- NOTE | 2022-12-10 17:50 | NUR ---
Notes- just woke up and eating dinner, home O2 was delivered, respiratory therapist at bedside educating patient on how to use oxygen. Patient made aware that he can go home now. Patient will call his family.
--- NOTE | 2022-12-10 18:54 | NUR ---
Discharge home with home oxygen. No distress. discharge instruction given and discussed with patient. Pt verbalize understanding. Instructed patient to follow up with Dr. whiting next wee. IVL removed.
[2022-12-11] MEDS ORDERED: FUROSEMIDE 40 MG TABLET PO SCH (09:00)
== END 2022-12-10 18:50 | disposition home or self-care (01) | DRG 291 ==
LOC: SED 08:28 → STU 11:30
PROVIDERS: ADMIT Family Medicine; ATTEND Family Medicine
DX: I13.0 Hypertensive heart and chronic kidney disease with heart failure and stage 1 through stage 4 chronic kidney disease, or unspecified chronic kidney disease (principal); I50.43 Acute on chronic combined systolic (congestive) and diastolic (congestive) heart failure; E66.2 Morbid (severe) obesity with alveolar hypoventilation; Z68.43 Body mass index [BMI] 50.0-59.9, adult; I42.9 Cardiomyopathy, unspecified; N18.9 Chronic kidney disease, unspecified; E11.22 Type 2 diabetes mellitus with diabetic chronic kidney disease; Z20.822 Contact with and (suspected) exposure to COVID-19; M25.511 Pain in right shoulder; J45.909 Unspecified asthma, uncomplicated; K21.9 Gastro-esophageal reflux disease without esophagitis; G47.33 Obstructive sleep apnea (adult) (pediatric); Z79.4 Long term (current) use of insulin; Z95.810 Presence of automatic (implantable) cardiac defibrillator; Z88.6 Allergy status to analgesic agent
CPT/HCPCS: 36415; 71045; 73030; 80053; 82550; 83880; 84484; 85025; 85379; 93005; 94640; 94660; 94760; 96374; 96375; 99285; G0378; J1815; J1940; J2270; J2274; J7614

== ENCOUNTER 2024-04-23 13:46 | Emergency (ER) | payer OTHER, MEDICAID ==
[~2024-04-23] VITALS: Ht 167.6 cm; Wt 149.7 kg
[~2024-04-23 13:46] MED LIST changes: -ACET-1172 PO; -ALBMDI INH; -ATRMDI INH; -CARV25TA55 PO; -CITA20SO2 PO; -DULA1.5P SQ; -ERGO1250 PO; +FURO80TA86 PO; -GABA-531 PO; +HYDR-2924 PO; -HYDR-4037 PO; +ISOS20TA8 PO; +LYR50 PO; +MORP30TA59 PO; -OMEG500C3 PO; -SIMV-343 PO; -SSNOVOLOG SUBCUT; +TAMS-11 PO
[2024-04-23 14:00] VITALS: BP_SYST 184; PULSE 74; RESP 18; TEMP 98.1; O2SAT 98
[2024-04-23] MEDS ORDERED: ASPIRIN 81 MG TAB.CHEW PO ONE (15:15)
[2024-04-23 16:03] LABS: BASOPHILS % (AUTO) 0.6 % (0.0-2.0); EOSINOPHILS # (AUTO) 0.2 K/uL (0.0-0.4); HEMATOCRIT 29.4 % (36-54); HEMOGLOBIN 10.2 g/dL (14.0-18.0); LYMPHOCYTES # (AUTO) 1.4 K/uL (1.0-5.5); LYMPHOCYTES % (AUTO) 16.1 % (20.5-51.5); MEAN CORPUSCULAR HEMOGLOBIN 27 pg (27-31); MEAN CORPUSCULAR HGB CONC 35 % (32-36); MEAN CORPUSCULAR VOLUME 79 fL (79.0-98.0); MONOCYTES # (AUTO) 0.4 K/uL (0.0-1.0); MONOCYTES % (AUTO) 4.4 % (1.7-9.3); NEUTROPHILS # (AUTO) 6.5 K/uL (1.8-7.7); NEUTROPHILS % (AUTO) 76.9 % (40.0-70.0); PLATELET COUNT (AUTO) 162 K/uL (130-430); RED BLOOD CELL COUNT(AUTO) 3.75 MIL/uL (4.2-6.2); RED CELL DISTRIBUTION WIDTH 15.5 % (9.0-15.0); WHITE BLOOD COUNT (AUTO) 8.4 K/uL (4.8-10.8)
[2024-04-23] MEDS: ASPIRIN 81 MG TAB.CHEW PO ONE (16:13)
[2024-04-23 16:27] LABS: CALCIUM 8.9 mg/dL (8.4-11.0); CARBON DIOXIDE 34 mmol/L (23-29); CHLORIDE 98 mmol/L (98-107); CREATININE 1.94 mg/dL (0.55-1.30); GFR AFRICAN AMERICAN 46 mL/min (>90); GLUCOSE 269 mg/dL (74-106); POTASSIUM 3.7 mmol/L (3.5-5.1); SODIUM SERUM 134 mmol/L (136-145); UREA NITROGEN, BLOOD 20 mg/dL (8-21)
[2024-04-23 16:30] LABS: ANION GAP < 3 (5-15); GFR NON AFRICAN-AMERICAN 38 mL/min (>90)
[2024-04-23 19:39] LABS: BILIRUBIN,URINE NEGATIVE (NEGATIVE); BLOOD, URINE NEGATIVE (NEGATIVE); CLARITY/URINE CLEAR (CLEAR); COLOR,URINE YELLOW (YELLOW); GLUCOSE,URINE TRACE (NEGATIVE); KETONES,URINE NEGATIVE (NEGATIVE); LEUKOCYTE ESTERASE ,URINE NEGATIVE (NEGATIVE); NITRITE, URINE NEGATIVE (NEGATIVE); PH,URINE 5.5 (5.0-8.0); PROTEIN URINE NEGATIVE (NEGATIVE); UROBILINOGEN,URINE 0.2 (0.2-1.0)
[2024-04-23 20:40] VITALS: BP_SYST 129; PULSE 60; RESP 18; TEMP 98.2; O2SAT 96
== END 2024-04-23 20:40 | disposition home or self-care (01) ==
LOC: SED 13:46
DX: I12.9 Hypertensive chronic kidney disease with stage 1 through stage 4 chronic kidney disease, or unspecified chronic kidney disease (principal); E11.22 Type 2 diabetes mellitus with diabetic chronic kidney disease; E11.65 Type 2 diabetes mellitus with hyperglycemia; N18.9 Chronic kidney disease, unspecified; Z20.822 Contact with and (suspected) exposure to COVID-19; J45.909 Unspecified asthma, uncomplicated; Z95.0 Presence of cardiac pacemaker; Z88.5 Allergy status to narcotic agent; Z88.6 Allergy status to analgesic agent; Z79.899 Other long term (current) drug therapy; Z79.2 Long term (current) use of antibiotics; Z79.82 Long term (current) use of aspirin
CPT/HCPCS: 36415; 71045; 80048; 81001; 81003; 83880; 84484; 85025; 93005; 99285